=== PATIENT | male | born 1945 | race Caucasian/White ===

== ENCOUNTER 2017-03-13 05:06 | Inpatient (IN) | payer OTHER, MEDICARE ==
[2017-03-13] VITALS (14 sets, daily range): BP systolic 114–148; BP diastolic 69–111; PULSE 99–160; RESP 22–42; TEMP 97.7–98.3; O2SAT 90–100
[~2017-03-13] VITALS: Ht 182.9 cm; Wt 113.5 kg
[2017-03-13] MEDS ORDERED: ASPIRIN 300 MG SUPP RECTAL ONE (05:15)
[2017-03-13] MEDS ORDERED: SODIUM CHLORIDE 0.9% FLUSH 10 ML FLUSH IVF PRN (05:15)
--- NOTE | 2017-03-13 05:28 | PD ---
HPI Chief Complaint: Cardiac Complaint Time Seen by Provider: 05:15 Travel History International Travel<30 days: No Contact w/Intl Traveler<30days: No Traveled to known affect area: No History of Present Illness HPI 72-year-old male presents with shortness of breath that started an hour and a half prior to arrival. He denies any specific chest pain. He states he is visiting from [place]. The ambulance team arrived his heart rate was in the 180s. He was given 2 doses of adenosine without change. Then he was given 20 mg of Cardizem. This slowed his heart rate down temporarily but then it went back up. 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 He states this was a couple years ago. PFSH Past Medical History Atrial Fibrillation: Yes Cardiac Catheterization: Yes (2007) High Cholesterol: Yes COPD: Yes GERD: Yes Gout: Yes Hypertension: Yes Influenza Vaccination: No Past Surgical History Eye Surgery: Yes (CATARACTS ) Social History Alcohol Use: Yes (SOCIAL) Tobacco Use: No Substance Use: No Allergies-Medications (Allergen,Severity, Reaction): Coded Allergies: oxycodone (Verified Allergy, Unknown, Hallucinations, 03/13/17) clopidogrel (Verified Adverse Reaction, Intermediate, Tachycardia, 03/13/17 ) pt. states plavix makes his heart rate go fast. Reported Meds & Prescriptions Reported Meds & Active Scripts Active Reported Proair Hfa 8.5 GM Inh (Albuterol Sulfate) 90 Mcg/Act Aer 2 Puff INH Q4-6H PRN 108 mcg/actuation Indomethacin 50 Mg Cap 50 Mg PO TID Take with food, milk, or antacids to decrease stomach adverse effects. Potassium Chloride ER (Potassium Chloride) 10 Meq Cap 10 Meq PO MO,WE,FR Furosemide 20 Mg Tab 20 Mg PO MO,WE,FR Diltiazem CD 24 HR 120 Mg Caper 120 Mg PO BID Metoprolol Succinate ER 24 HR (Metoprolol Succinate) 25 Mg Tab 12.5 Mg PO HS Metoprolol Succinate ER 24 HR (Metoprolol Succinate) 25 Mg Tab 25 Mg PO DAILY Aspirin Low Dose (Aspirin) 81 Mg Chew 81 Mg CHEW DAILY Omeprazole 20 Mg Tab 20 Mg PO DAILY Allopurinol 300 Mg Tab 300 Mg PO DAILY Lovastatin 40 Mg Tab 40 Mg PO DAILY Lisinopril 20 Mg Tab 20 Mg PO DAILY Review of Systems Except as stated in HPI: all other systems reviewed are Neg Physical Exam Narrative GENERAL: Well-nourished, well-developed patient, ill-appearing. SKIN: Diaphoretic HEAD: Normocephalic and atraumatic. EYES: No injection or drainage. ENT: No nasal drainage noted. NECK: Supple, trachea midline. CARDIOVASCULAR: irregular rate and rhythm RESPIRATORY:expiratory wheezing bilaterally. No accessory muscle use. GASTROINTESTINAL: Abdomen soft, nondistended. EXTREMITIES: 2+ pitting edema bilateral legs, mid tibia. NEUROLOGICAL: Awake. moves all extremities and sensory grossly within normal limits. Normal speech. Data Data Last Documented VS Vital Signs Date Time Temp Pulse Resp B/P (MAP) Pulse Ox O2 Delivery O2 Flow Rate FiO2 03/13/17 06:08 132 160/103 03/13/17 05:45 38 BiPAP 35 03/13/17 05:23 97 03/13/17 05:10 97.7 Orders Orders Electrocardiogram (03/13/17 05:15) B-Type Natriuretic Peptide (03/13/17 05:15) Ckmb (Isoenzyme) Profile (03/13/17 05:15) Complete Blood Count With Diff (03/13/17 05:15) Comprehensive Metabolic Panel (03/13/17 05:15) Magnesium (Mg) (03/13/17 05:15) Prothrombin Time / Inr (Pt) (03/13/17 05:15) Act Partial Throm Time (Ptt) (03/13/17 05:15) Troponin I (03/13/17 05:15) Chest, Single Ap (03/13/17 05:15) Ecg Monitoring (03/13/17 05:15) Bilateral Bp Monitoring (03/13/17 05:15) Iv Access Insert/Monitor (03/13/17 05:15) Oximetry (03/13/17 05:15) Oxygen Administration (03/13/17 05:15) Sodium Chloride 0.9% Flush (Ns Flush) (03/13/17 05:15) Aspirin Supp (Aspirin Supp) (03/13/17 05:15) Resp Bipap / Cpap Non Invas Vt (03/13/17 ) Diltiazem Inj (Cardizem Inj) (03/13/17 05:30) Furosemide Inj (Lasix Inj) (03/13/17 06:00) Admit Order (Ed Use Only) (03/13/17 06:09) Labs Laboratory Tests Test 03/13/17 05:20 White Blood Count 11.4 TH/MM3 Red Blood Count 4.65 MIL/MM3 Hemoglobin 13.7 GM/DL Hematocrit 42.4 % Mean Corpuscular Volume 91.2 FL Mean Corpuscular Hemoglobin 29.6 PG Mean Corpuscular Hemoglobin Concent 32.4 % Red Cell Distribution Width 16.8 % Platelet Count 236 TH/MM3 Mean Platelet Volume 8.9 FL Neutrophils (%) (Auto) 74.8 % Lymphocytes (%) (Auto) 16.9 % Monocytes (%) (Auto) 5.8 % Eosinophils (%) (Auto) 1.7 % Basophils (%) (Auto) 0.8 % Neutrophils # (Auto) 8.6 TH/MM3 Lymphocytes # (Auto) 1.9 TH/MM3 Monocytes # (Auto) 0.7 TH/MM3 Eosinophils # (Auto) 0.2 TH/MM3 Basophils # (Auto) 0.1 TH/MM3 CBC Comment DIFF FINAL Differential Comment Prothrombin Time 10.5 SEC Prothromb Time International Ratio 1.0 RATIO Activated Partial Thromboplast Time 24.3 SEC Blood Urea Nitrogen 20 MG/DL Creatinine 0.86 MG/DL Random Glucose 177 MG/DL Total Protein 7.3 GM/DL Albumin 3.8 GM/DL Calcium Level 8.6 MG/DL Magnesium Level 1.9 MG/DL Alkaline Phosphatase 108 U/L Aspartate Amino Transf (AST/SGOT) 15 U/L Alanine Aminotransferase (ALT/SGPT) 23 U/L Total Bilirubin 0.4 MG/DL Sodium Level 141 MEQ/L Potassium Level 3.5 MEQ/L Chloride Level 106 MEQ/L Carbon Dioxide Level 26.9 MEQ/L Anion Gap 8 MEQ/L Estimat Glomerular Filtration Rate 87 ML/MIN Total Creatine Kinase 60 U/L Troponin I 0.23 NG/ML B-Type Natriuretic Peptide 752 PG/ML MDM Medical Decision Making Medical Screen Exam Complete: Yes Emergency Medical Condition: Yes Medical Record Reviewed: Yes (pmh confirmed) Interpretation(s) ekg is A. fib with heart rate in the 150s, right bundle branch block, wide QRS CBC & BMP Diagram 12/1/17 05:20 Total Protein 7.3, Albumin 3.8, Calcium Level 8.6, Magnesium Level 1.9, Alkaline Phosphatase 108, Aspartate Amino Transf (AST/SGOT) 15, Alanine Aminotransferase (ALT/SGPT) 23, Total Bilirubin 0.4 Last 24 hours Impressions Chest X-Ray 03/13/17 0515 Signed Impressions: Service Date/Time: Monday, March 13, 2017 05:22 - CONCLUSION: Bibasilar air space opacity in a pattern suggesting pulmonary edema. Cardiac silhouette is mildly enlarged. Clarence Bhakta MD troponin and bnp is elevated Differential Diagnosis MO, CHF, PE, A. fib with RVR, ventricular tachycardia Narrative Course Will check blood work, chest x-ray and place patient on BiPAP, dose with aspirin and placed on Cardizem drip and discuss with cardiology given concern of ekg and presentation On recheck patient has improved with BiPAP. He is talking in full sentences and declining Lasix. Very lengthy discussion with patient and he agrees to Lasix and understands its importance now. We'll titrate up Cardizem. He will need to be kept nothing by mouth and on bedrest and monitor closely in the CIC area Patient was wanting BiPAP off when hospitalist came to see patient, with it briefly off he got tachycardic and tachypneic Again. BiPAP was replaced and hospitalist request ICU admission, he will be admitted to the hospital, if bp stays stable will need nitro drip Critical Care Narrative Aggregate critical care time was 35 minutes. Time to perform other separately billable procedures was not included in the critical care time. My time did not include minutes spent treating any other patients simultaneously or on activities that did not directly contribute to the patient's treatment. The services I provided to this patient were to treat and/or prevent clinically significant deterioration that could result in: CHF, respiratory failure, shock I provided critical care services requiring my management, as noted below: Chart data review, documentation time, medication orders and management, vital sign assessments/reviewing monitor data, ordering and reviewing lab tests, ordering and interpreting/reviewing x-rays and diagnostic studies, care of the patient and discussion of the patient with the admitting physicians. Physician Communication Physician Communication dr bolaños informed concern for ekg and patients symptoms and states to give lasix when I asked for his assistance dr florez thinks patient needs to go to icu as patient got tachycardic with bipap off dr murphy agrees to admit Diagnosis Primary Impression: Pulmonary edema Qualified Codes: J81.0 - Acute pulmonary edema Additional Impressions: Atrial fibrillation with RVR Respiratory failure Qualified Codes: J96.00 - Acute respiratory failure, unspecified whether with hypoxia or hypercapnia Admitting Information Admitting Physician Requests: Admit Pinky Daniel MD Mar 13, 2017 05:28
[2017-03-13] MEDS ORDERED: ALLO300T2 PO (05:29)
[2017-03-13] MEDS ORDERED: FURO20TA PO (05:29)
[2017-03-13] MEDS ORDERED: DILT120C50 PO (05:29)
[2017-03-13] MEDS ORDERED: LISI-515 PO (05:29)
[2017-03-13] MEDS ORDERED: OMEP20TA93 PO (05:29)
[2017-03-13] MEDS ORDERED: ALBUAER3 INH (05:29)
[2017-03-13] MEDS ORDERED: ASPI81CH6 CHEW (05:29)
[2017-03-13] MEDS ORDERED: LOVA40TA PO (05:29)
[2017-03-13] MEDS ORDERED: INDO50CA PO (05:29)
[2017-03-13] MEDS ORDERED: METO1TAB42 PO ×2 (05:29)
[2017-03-13] MEDS ORDERED: POTA10CA PO (05:29)
[2017-03-13] MEDS ORDERED: DILTIAZEM INJ 125 MG in SODIUM CHLORIDE 0.9% INJ 100 ML IV PRN ×2 (05:30→06:30)
[2017-03-13 05:36] LABS: AUTOMATED NEUTROPHIL # 8.6 TH/MM3 (1.8-7.7); BASOPHIL # 0.1 TH/MM3 (0-0.2); BASOPHIL % 0.8 % (0.0-2.0); EOSINOPHIL # 0.2 TH/MM3 (0-0.4); EOSINOPHIL % 1.7 % (0.0-4.0); HEMATOCRIT 42.4 % (39.0-51.0); HEMO FLAGS DIFF FINAL; LYMPH % 16.9 % (9.0-44.0); LYMPHOCYTE # 1.9 TH/MM3 (1.0-4.8); MEAN CELL VOLUME 91.2 FL (80.0-100.0); MEAN CORPUSCULAR HEMOGLOBIN 29.6 PG (27.0-34.0); MEAN CORPUSCULAR HGB CONC 32.4 % (32.0-36.0); MONO % 5.8 % (0.0-8.0); NEUT % 74.8 % (16.0-70.0); PLATELET COUNT 236 TH/MM3 (150-450); RED BLOOD COUNT 4.65 MIL/MM3 (4.50-5.90); RED CELL DISTRIBUTION WIDTH 16.8 % (11.6-17.2); WHITE BLOOD COUNT 11.4 TH/MM3 (4.0-11.0)
[2017-03-13 05:41] LABS: APTT (PATIENT) 24.3 SEC (24.3-30.1); PROTHROMBIN TIME - PATIENT 10.5 SEC (9.8-11.6)
[2017-03-13 05:51] LABS: ALT (GPT) 23 U/L (12-78); ANION GAP 8 MEQ/L (5-15); AST (GOT) 15 U/L (15-37); BICARBONATE 26.9 MEQ/L (21.0-32.0); BLOOD UREA NITROGEN 20 MG/DL (7-18); CHLORIDE 106 MEQ/L (98-107); GLOMERULAR FILTRATION RATE 87 ML/MIN (>89); MAGNESIUM 1.9 MG/DL (1.5-2.5); POTASSIUM 3.5 MEQ/L (3.5-5.1); SODIUM (NA) 141 MEQ/L (136-145)
--- NOTE | 2017-03-13 05:51 | RADRPT ---
EXAM DATE/TIME: 03/13/2017 05:22 [facility] COMPARISON: No previous studies available for comparison. INDICATIONS : Shortness of breath. MEDICAL HISTORY : Chronic obstructive pulmonary disease. SURGICAL HISTORY : Abdominal stents. ENCOUNTER: Initial ACUITY: 1 day PAIN SCORE: 0/10 LOCATION: Bilateral chest FINDINGS: Portable AP views of the chest demonstrates cardiac silhouette size at the upper limits for normal. T here is airspace opacity in the lower lung zones bilaterally. No pneumothorax or pleural effusion is identified. Bones and soft tissues demonstrate no acute finding. CONCLUSION: Bibasilar air space opacity in a pattern suggesting pulmonary edema. Cardiac silhouette is mildly enl arged. Clarence Bhakta MD on March 13, 2017 at 5:49 Board Certified Radiologist. This report was verified electronically.
[2017-03-13] MEDS: FUROSEMIDE 40 MG/4 ML VIAL IV PUSH ONE ×2 (05:52→06:14)
[2017-03-13 05:55] LABS: ALKALINE PHOSPHATASE 108 U/L (45-117); TOTAL BILIRUBIN ADULT 0.4 MG/DL (0.2-1.0)
[2017-03-13 05:56] LABS: CREATINE KINASE 60 U/L (39-308)
[2017-03-13] MEDS ORDERED: SODIUM CHLORIDE 0.9% FLUSH 10 ML FLUSH IV FLUSH PRN ×2 (06:15→07:00)
[2017-03-13] MEDS ORDERED: NALOXONE HCL 0.4 MG/ML AMP IV PUSH PRN (06:15)
[2017-03-13] MEDS ORDERED: POTASSIUM CHLORIDE 20 MEQ CONTROLLED RELEASE TAB PO ONE (06:15)
[2017-03-13] MEDS ORDERED: DILTIAZEM HCL 25 MG/5 ML VIAL IV PUSH ONE (06:30)
--- NOTE | 2017-03-13 06:38 | HHI.PR ---
Addendum to Inpatient Note Addendum Reason: Additional Documentation Additional Information This admission was given to me from ER at around 6 AM. Came to see patient at the bedside. Patient is awake, alert. at the bedside. Patient and family reports that patient has been short of breath for the past 3 days or so. Patient is insistent that he gets short of breath only when his A. fib is acting up. He reports is not on anticoagulation at home because of history of bleeding. Reports history of GI ulcers. He reports he short of breath with feeling off palpitations. He takes medications to control his heart rate. He reports that his doctors in [place] wanted to give him DC cardioversion and they were not able to do so because he would not take blood thinners. When asked about history of cardiac ablation, patient is not aware of this procedure. During my conversation, patient really wanted to to wipe his nose and ask for the BiPAP mask to be removed. This was removed and within about 5-10 minutes, patient himself became quite short of breath and ask for the BiPAP to be replaced immediately. While this was being replaced in the next 5 minutes or so, it is quite clear that patient became acutely in distress. His heart rate was in the 180s. Rhythm shows A. fib. Discussed with the ER physician. Patient with quite acute respiratory distress/severe enough that he cannot tolerate even a short period of BiPAP removal weren't to be admitted under ultrasound sonographer service in ICU setting. Therefore will remove my name of the list and admission to be given to ultrasound sonographer. Pacheco Chamberlain MD Mar 13, 2017 06:38
[2017-03-13] MEDS ORDERED: ACETAMINOPHEN 325 MG TAB PO PRN (07:00)
[2017-03-13] MEDS ORDERED: METOPROLOL TARTRATE 5 MG/5 ML VIAL IV PUSH ONE (07:00)
[2017-03-13] MEDS ORDERED: CHLORHEXIDINE GLUCONATE 2 % 1 PACK (2 CLOTHS) TOP PRN (07:00)
[2017-03-13] MEDS ORDERED: MISCELLANEOUS NURSING INFORMATION XX SCH (07:00)
[2017-03-13] MEDS: CHLORHEXIDINE 0.12% (ORAL KIT) 15 ML CUP MT SCH ×2 (08:00→20:00)
[2017-03-13] MEDS ORDERED: PRAVASTATIN SOD 40 MG TAB PO SCH (09:00)
[2017-03-13] MEDS ORDERED: PANTOPRAZOLE SOD 20 MG DELAYED RELEASE TAB PO SCH (09:00)
[2017-03-13] MEDS: SODIUM CHLORIDE 0.9% FLUSH 10 ML FLUSH IV FLUSH SCH ×2 (09:00→20:21)
[2017-03-13] MEDS ORDERED: SODIUM CHLORIDE 0.9% FLUSH 10 ML FLUSH IV FLUSH SCH (09:00)
[2017-03-13] MEDS: ASPIRIN 81 MG CHEW TAB CHEW SCH (09:35)
[2017-03-13] MEDS: FUROSEMIDE 40 MG/4 ML VIAL IV PUSH SCH ×2 (09:36→18:44)
[2017-03-13] MEDS: METOPROLOL SUCCINATE 25 MG EXTENDED RELEASE TAB PO SCH (09:36)
[2017-03-13] MEDS: LISINOPRIL 20 MG TAB PO SCH (09:37)
[2017-03-13] MEDS: ALLOPURINOL 300 MG TAB PO SCH (09:40)
[2017-03-13] MEDS: DILTIAZEM-CD 120 MG CAP ER PO SCH ×2 (09:40→20:21)
[2017-03-13] MEDS ORDERED: ALPRAZolam 0.5 MG TAB PO ONE (10:15)
[2017-03-13] MEDS: INSULIN ASPART SUPPLEMENTAL SCALE SQ SCH ×3 (12:00→20:50)
[2017-03-13] MEDS: DILTIAZEM INJ 125 MG in SODIUM CHLORIDE 0.9% INJ 100 ML IV PRN (12:00)
--- NOTE | 2017-03-13 13:41 | HHI.HP ---
HPI Service Critical Care Medicine Primary Care Physician No Primary Care Physician Admission Diagnosis chf exacerbation, afib with rvr Diagnosis: Travel History International Travel<30 Days: No Contact w/Intl Traveler <30 Da: No Traveled to Known Affected Are: No History of Present Illness History of Present Illness HPI 72-year-old male with a medical history significant for atrial fibrillation, coronary artery disease, peripheral vascular disease who developed progressive shortness of breath about 1-1/2 hours prior to his arrival to the ER. He reportedly was visiting the area from [place]. EMS was called when he started having shortness of breath and was noted to have heart rate in the 180s. He was given 2 doses of Indocin and subsequently 20 mg Cardizem IV with which his heart rate temporarily came down however he was noted to be in A. fib with RVR on arrival in the ER. Patient was initiated on BiPAP for respiratory distress and hypoxia and was initiated on a Cardizem drip. Dr. Meza from cardiology was consulted by ER physician in view of pulmonary edema and slightly elevated troponin and A. fib with RVR. Patient was accepted for admission by critical care medicine service. I ordered Lopressor 5 mg IV stat as patient was on Cardizem 15 mg/h and still tachycardic with ventricular rate 120 to 130s. Following administration of Lopressor his heart rate came down to the 90s while on Cardizem drip. When I evaluated the patient in the ER he was on BiPAP with full facemask. He stated that since receiving the Lopressor he was feeling better however still very short of breath. He denied any chest pain. 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 He has previously had a cardiac catheterization way back in 2008 and was told he had an obstruction. He has also had a stress test in 2014 which was abnormal. Patient states that he cannot take blood thinners due to history of GI bleeding. He was advised to have a cardiac catheterization by his plush brusher previously. He denies any fevers or chills. Denies any chest pain nausea or vomiting. Denies any melena or rectal bleeding currently. History PFSH Past Medical History Atrial Fibrillation: Yes Cardiac Catheterization: Yes (2007) High Cholesterol: Yes COPD: Yes GERD: Yes Gout: Yes Hypertension: Yes Influenza Vaccination: No Past Surgical History Eye Surgery: Yes (CATARACTS ) Social History Alcohol Use: Yes (SOCIAL) Tobacco Use: No Substance Use: No Allergies-Medications Allergies-Medications (Allergen,Severity, Reaction): Coded Allergies: oxycodone (Verified Allergy, Unknown, Hallucinations, 03/13/17) Reported Meds & Prescriptions Reported Meds & Active Scripts Active Reported Proair Hfa 8.5 GM Inh (Albuterol Sulfate) 90 Mcg/Act Aer 2 Puff INH Q4-6H PRN 108 mcg/actuation Indomethacin 50 Mg Cap 50 Mg PO TID Take with food, milk, or antacids to decrease stomach adverse effects. Potassium Chloride ER (Potassium Chloride) 10 Meq Cap 10 Meq PO MO,WE,FR Furosemide 20 Mg Tab 20 Mg PO MO,WE,FR Diltiazem CD 24 HR 120 Mg Caper 120 Mg PO BID Metoprolol Succinate ER 24 HR (Metoprolol Succinate) 25 Mg Tab 12.5 Mg PO HS Metoprolol Succinate ER 24 HR (Metoprolol Succinate) 25 Mg Tab 25 Mg PO DAILY Aspirin Low Dose (Aspirin) 81 Mg Chew 81 Mg CHEW DAILY Omeprazole 20 Mg Tab 20 Mg PO DAILY Allopurinol 300 Mg Tab 300 Mg PO DAILY Lovastatin 40 Mg Tab 40 Mg PO DAILY Lisinopril 20 Mg Tab 20 Mg PO DAILY ROS Review of Systems Except as stated in HPI: all other systems reviewed are Neg Physical Exam Vital Signs Vital Signs Date Time Temp Pulse Resp B/P (MAP) Pulse Ox O2 Delivery O2 Flow Rate FiO2 03/13/17 12:00 98.3 108 24 115/74 (88) 95 03/13/17 12:00 108 03/13/17 10:23 98.0 99 26 141/82 (101) 96 03/13/17 10:00 98.3 108 24 115/74 (88) 95 03/13/17 09:05 100 50 03/13/17 08:50 03/13/17 07:30 99 22 131/69 (89) 98 BiPAP 35 03/13/17 06:40 130 167/128 03/13/17 06:08 132 160/103 03/13/17 05:52 130 148/111 03/13/17 05:45 127 38 148/111 (123) BiPAP 35 03/13/17 05:35 133 42 03/13/17 05:23 97 BiPAP 35 03/13/17 05:15 97 45 03/13/17 05:10 90 Room Air 03/13/17 05:10 97.7 160 42 121/98 (106) 90 Physical Exam Narrative GENERAL: Well-nourished, well-developed patient, ill-appearing. SKIN: Diaphoretic HEAD: Normocephalic and atraumatic. EYES: No injection or drainage. ENT: No nasal drainage noted. NECK: Supple, trachea midline. CARDIOVASCULAR: irregular rate and rhythm RESPIRATORY: On BiPAP with full facemask, good air entry bilaterally, scattered rhonchi and bibasilar crackles, no wheezing. GASTROINTESTINAL: Abdomen soft, nondistended. EXTREMITIES: 2+ pitting edema bilateral legs, mid tibia. NEUROLOGICAL: Awake. moves all extremities and sensory grossly within normal limits. Normal speech. Laboratory Laboratory Tests Test 03/13/17 05:20 03/13/17 08:40 White Blood Count 11.4 Red Blood Count 4.65 Hemoglobin 13.7 Hematocrit 42.4 Mean Corpuscular Volume 91.2 Mean Corpuscular Hemoglobin 29.6 Mean Corpuscular Hemoglobin Concent 32.4 Red Cell Distribution Width 16.8 Platelet Count 236 Mean Platelet Volume 8.9 Neutrophils (%) (Auto) 74.8 Lymphocytes (%) (Auto) 16.9 Monocytes (%) (Auto) 5.8 Eosinophils (%) (Auto) 1.7 Basophils (%) (Auto) 0.8 Neutrophils # (Auto) 8.6 Lymphocytes # (Auto) 1.9 Monocytes # (Auto) 0.7 Eosinophils # (Auto) 0.2 Basophils # (Auto) 0.1 CBC Comment DIFF FINAL Differential Comment Prothrombin Time 10.5 Prothromb Time International Ratio 1.0 Activated Partial Thromboplast Time 24.3 Blood Urea Nitrogen 20 Creatinine 0.86 Random Glucose 177 Total Protein 7.3 Albumin 3.8 Calcium Level 8.6 Magnesium Level 1.9 Alkaline Phosphatase 108 Aspartate Amino Transf (AST/SGOT) 15 Alanine Aminotransferase (ALT/SGPT) 23 Total Bilirubin 0.4 Sodium Level 141 Potassium Level 3.5 Chloride Level 106 Carbon Dioxide Level 26.9 Anion Gap 8 Estimat Glomerular Filtration Rate 87 Total Creatine Kinase 60 Troponin I 0.23 B-Type Natriuretic Peptide 752 Nasal Screen MRSA (PCR) MRSA NOT DETECTED Result Diagram: 03/13/1751903/13/1720 Imaging Last Impressions Chest X-Ray 03/13/17 0515 Signed Impressions: Service Date/Time: Monday, March 13, 2017 05:22 - CONCLUSION: Bibasilar air space opacity in a pattern suggesting pulmonary edema. Cardiac silhouette is mildly enlarged. MD Fareed Platt VTE Risk Assessment Fareed VTE Risk Assessment: Mod/High Risk (score >= 2) Caprini Risk Assessment Model Point Value = 1 Point Value = 2 Point Value = 3 Point Value = 5 Age 41-60 Minor surgery BMI > 25 kg/m2 Swollen legs Varicose veins or History of unexplained or recurrent spontaneous Oral contraceptives or hormone replacement Sepsis (< 1 month) Serious lung disease, including pneumonia (< 1 month) Abnormal pulmonary function Acute myocardial infarction Congestive heart failure (< 1 month) History of inflammatory bowel disease Medical patient at bed rest Age 61-74 Arthroscopic surgery Major open surgery (> 45 min) Laparoscopic surgery (> 45 min) Malignancy Confined to bed (> 72 hours) Immobilizing plaster cast Central venous access Age >= 75 History of VTE Family history of VTE Factor V Leiden Prothrombin [id number] Lupus anticoagulant Anticardiolipin antibodies Elevated serum homocysteine Heparin-induced thrombocytopenia Other congenital or acquired thrombophilia Stroke (< 1 month) Elective arthroplasty Hip, pelvis, or leg fracture Acute spinal cord injury (< 1 month) Prophylaxis Regimen Total Risk Factor Score Risk Level Prophylaxis Regimen 0-1 Low Early ambulation 2 Moderate Order ONE of the following: *Sequential Compression Device (SCD) *Heparin 5000 units SQ BID 3-4 Higher Order ONE of the following medications: *Heparin 5000 units SQ TID *Enoxaparin/Lovenox 40 mg SQ daily (WT < 150 kg, CrCl > 30 mL/min) *Enoxaparin/Lovenox 30 mg SQ daily (WT < 150 kg, CrCl > 10-29 mL/min) *Enoxaparin/Lovenox 30 mg SQ BID (WT < 150 kg, CrCl > 30 mL/min) AND/OR *Sequential Compression Device (SCD) 5 or more Highest Order ONE of the following medications: *Heparin 5000 units SQ TID (Preferred with Epidurals) *Enoxaparin/Lovenox 40 mg SQ daily (WT < 150 kg, CrCl > 30 mL/min) *Enoxaparin/Lovenox 30 mg SQ daily (WT < 150 kg, CrCl > 10-29 mL/min) *Enoxaparin/Lovenox 30 mg SQ BID (WT < 150 kg, CrCl > 30 mL/min) AND *Sequential Compression Device (SCD) Assessment and Plan Assessment and Plan 72-year-old male with: Acute respiratory failure requiring BiPAP A. fib with RVR Elevated troponin CAD COPD Hyperlipidemia Gout Plan: Neuro: Follow neuro status. Pain medications as needed. Cardiovascular: Diuresis with Lasix. Cardizem gtt. for rate control. Continue by mouth Cardizem and metoprolol home dose. Given Lopressor 5 mg IV earlier in ER. Cycle cardiac enzymes, continue aspirin. Cardiology consult requested and discussed with Dr. Meza at bedside with patient. Patient wishes to pursue further cardiac workup back in [place] after he is stabilized enough for discharge. Pulmonary: Continue BiPAP. If respiratory status worsens despite BiPAP may require endotracheal intubation. Being diuresed with Lasix. Hold off on albuterol in view of A. fib with RVR. GI/liver: Nothing by mouth till improvement in respiratory status Renal/: Diurese with Lasix, strict intake output, monitor and replete elect lites, follow BUN/creatinine. Heme: Follow CBC Endocrine: SSI for glycemic control if needed. Prophylaxis: Continue home dose of omeprazole, SCDs/Lovenox. Condition critical with patient in A. fib with RVR, decompensated CHF, pulmonary edema, positive troponin. Further recommendations per Dr. Meza. Time spent on critical care excluding procedures 60 minutes Artemio Skinner MD Mar 13, 2017 13:40
--- NOTE | 2017-03-13 14:04 | PD.CONS ---
HPI Consult Requested By Primary Care Physician No Primary Care Physician History of Present Illness 72-year-old male with a medical history significant for atrial fibrillation, coronary artery disease (last cath 2008, ?abnormal stress test being tx medically, peripheral vascular disease, GI bleeding after blood thinners who presented to the ER via EMS for evaluation of progressive shortness of breath about 1-1/2 hours prior to his arrival. He receives his cardiovascular care in [place] ([facility]). Upon EMS arrival he was found in shortness of breath with a heart rate in the 180s. He was given 2 doses Adenosine and subsequently 20 mg Cardizem IV with which his heart rate temporarily came down however he was noted to be in A. fib with RVR. Patient was initiated on BiPAP for respiratory distress hypoxia and Cardizem drip. He denied any chest pain. He denies any fevers or chills. Denies any chest pain nausea or vomiting. Denies any melena or rectal bleeding currently. Cardiology consulted for HF management. Review of Systems Consitutional: COMPLAINS OF: Fatigue, DENIES: Fever, Chills, Weight gain, Weight loss Eyes: DENIES: Amaurosis Fugax, Change in vision HEENT: DENIES: Lightheadedness, Change in hearing Respiratory: COMPLAINS OF: See HPI, Shortness of breath, DENIES: Cough, Snoring , Wheezing, Sputum production Cardiovascular: DENIES: See HPI, Chest pain, Palpitations, Syncope, Tachycardia Gastrointestinal: DENIES: Nausea, Vomiting, Change in bowel habits, Reflux, Bloody stools, Melena Genitourinary: DENIES: Urinary incontinence, Difficulty voiding Integumentary: DENIES: Rash Neurologic: DENIES: Tingling or numbness, Memory problems, Poor Balance, Stroke symptoms Musculoskeletal: DENIES: Joint pain, Muscle pain, Limited range of motion, Back pain Psychiatric: DENIES: Anxiety, Depression, Sleep disturbances Hematologic: DENIES: Bruising tendencies, Bleeding tendencies Endocrine: COMPLAINS OF: Weight gain, DENIES: Weight loss, Thyroid disease Past Family Social History Allergies: Coded Allergies: oxycodone (Verified Allergy, Unknown, Hallucinations, 03/13/17) clopidogrel (Verified Adverse Reaction, Intermediate, Tachycardia, 03/13/17 ) pt. states plavix makes his heart rate go fast. Past Medical History Atrial Fibrillation: High Cholesterol COPD GERD Gout Hypertension Past Surgical History eye surgery Reported Medications Reported Meds & Active Scripts Active Reported Proair Hfa 8.5 GM Inh (Albuterol Sulfate) 90 Mcg/Act Aer 2 Puff INH Q4-6H PRN 108 mcg/actuation Indomethacin 50 Mg Cap 50 Mg PO TID Take with food, milk, or antacids to decrease stomach adverse effects. Potassium Chloride ER (Potassium Chloride) 10 Meq Cap 10 Meq PO MO,WE,FR Furosemide 20 Mg Tab 20 Mg PO MO,WE,FR Diltiazem CD 24 HR 120 Mg Caper 120 Mg PO BID Metoprolol Succinate ER 24 HR (Metoprolol Succinate) 25 Mg Tab 12.5 Mg PO HS Metoprolol Succinate ER 24 HR (Metoprolol Succinate) 25 Mg Tab 25 Mg PO DAILY Aspirin Low Dose (Aspirin) 81 Mg Chew 81 Mg CHEW DAILY Omeprazole 20 Mg Tab 20 Mg PO DAILY Allopurinol 300 Mg Tab 300 Mg PO DAILY Lovastatin 40 Mg Tab 40 Mg PO DAILY Lisinopril 20 Mg Tab 20 Mg PO DAILY Active Ordered Medications Current Medications Medications (Trade) Dose Ordered Sig/Preston Route Start Time Stop Time Status Last Admin (Narcan Inj) 0.4 mg UNSCH PRN IV PUSH 03/13/17 06:15 (Lasix Inj) 40 mg BID@18 IV PUSH 03/13/17 09:00 03/13/17 09:36 (NS Flush) 2 ml UNSCH PRN IV FLUSH 03/13/17 07:00 (NS Flush) 2 ml BID IV FLUSH 03/13/17 09:00 03/13/17 09:00 (Tylenol) 650 mg Q6H PRN PO 03/13/17 07:00 (Peridex 0.12% Liq) 15 ml BID@08,20 MT 03/13/17 08:00 Miscellaneous Information 1 Q361D XX 03/13/17 07:00 (Chlorhexidine 2% Cloth) 3 pack Taper DAILY@04 TOP 03/14/17 04:00 03/10/18 03:59 (Chlorhexidine 2% Cloth) 3 pack UNSCH PRN TOP 03/13/17 07:00 (NovoLOG SUPPLEMENTAL SCALE) 1 ACHS SLIDING SCALE SQ 03/13/17 08:00 (Zyloprim) 300 mg DAILY PO 03/13/17 09:00 03/13/17 09:40 (Aspirin Chew) 81 mg DAILY CHEW 03/13/17 09:00 03/13/17 09:35 (Cardizem Cd) 120 mg BID PO 03/13/17 09:00 03/13/17 09:40 (Prinivil) 20 mg DAILY PO 03/13/17 09:00 03/13/17 09:37 (Pravachol) 40 mg DAILY PO 03/13/17 09:00 (Toprol Xl) 12.5 mg HS PO 03/13/17 21:00 (Toprol Xl) 25 mg DAILY PO 03/13/17 09:00 03/13/17 09:36 (Protonix) 20 mg DAILY PO 03/13/17 09:00 Diltiazem HCl 125 mg/Sodium Chloride 125 ml @ 5 mls/hr TITRATE PRN IV 03/13/17 13:30 Family History noncontributory Social History Alcohol Use: Yes (SOCIAL) Tobacco Use: No Substance Use: No Physical Exam Vital Signs Vital Signs Date Time Temp Pulse Resp B/P (MAP) Pulse Ox O2 Delivery O2 Flow Rate FiO2 03/13/17 12:00 98.3 108 24 115/74 (88) 95 03/13/17 12:00 108 03/13/17 10:23 98.0 99 26 141/82 (101) 96 03/13/17 10:00 98.3 108 24 115/74 (88) 95 03/13/17 09:05 100 50 03/13/17 08:50 03/13/17 07:30 99 22 131/69 (89) 98 BiPAP 35 03/13/17 06:40 130 167/128 03/13/17 06:08 132 160/103 03/13/17 05:52 130 148/111 03/13/17 05:45 127 38 148/111 (123) BiPAP 35 03/13/17 05:35 133 42 03/13/17 05:23 97 BiPAP 35 03/13/17 05:15 97 45 03/13/17 05:10 90 Room Air 03/13/17 05:10 97.7 160 42 121/98 (106) 90 Physical Exam GENERAL: Well-nourished, well-developed patient, on BiPAP SKIN: Warm and dry. HEAD: Normocephalic. EYES: No scleral icterus. No injection or drainage. NECK: Supple, trachea midline. No JVD or lymphadenopathy. CARDIOVASCULAR: Regular rate and rhythm without murmurs, gallops, or rubs. RESPIRATORY: Breath sounds equal bilaterally. No accessory muscle use. GASTROINTESTINAL: Abdomen soft, non-tender, nondistended. EXTREMITIES: No cyanosis, or edema. NEUROLOGICAL: Awake, alert, and oriented x 3. Non-focal. Laboratory Laboratory Tests Test 03/13/17 05:20 03/13/17 08:40 03/13/17 13:10 White Blood Count 11.4 Red Blood Count 4.65 Hemoglobin 13.7 Hematocrit 42.4 Mean Corpuscular Volume 91.2 Mean Corpuscular Hemoglobin 29.6 Mean Corpuscular Hemoglobin Concent 32.4 Red Cell Distribution Width 16.8 Platelet Count 236 Mean Platelet Volume 8.9 Neutrophils (%) (Auto) 74.8 Lymphocytes (%) (Auto) 16.9 Monocytes (%) (Auto) 5.8 Eosinophils (%) (Auto) 1.7 Basophils (%) (Auto) 0.8 Neutrophils # (Auto) 8.6 Lymphocytes # (Auto) 1.9 Monocytes # (Auto) 0.7 Eosinophils # (Auto) 0.2 Basophils # (Auto) 0.1 CBC Comment DIFF FINAL Differential Comment Prothrombin Time 10.5 Prothromb Time International Ratio 1.0 Activated Partial Thromboplast Time 24.3 Blood Urea Nitrogen 20 Creatinine 0.86 Random Glucose 177 Total Protein 7.3 Albumin 3.8 Calcium Level 8.6 Magnesium Level 1.9 Alkaline Phosphatase 108 Aspartate Amino Transf (AST/SGOT) 15 Alanine Aminotransferase (ALT/SGPT) 23 Total Bilirubin 0.4 Sodium Level 141 Potassium Level 3.5 Chloride Level 106 Carbon Dioxide Level 26.9 Anion Gap 8 Estimat Glomerular Filtration Rate 87 Total Creatine Kinase 60 Troponin I 0.23 B-Type Natriuretic Peptide 752 Nasal Screen MRSA (PCR) MRSA NOT DETECTED Result Diagram: 03/13/1751903/13/17519 Imaging Last Impressions Chest X-Ray 03/13/17514 Signed Impressions: Service Date/Time: Monday, March 13, 2017 05:22 - CONCLUSION: Bibasilar air space opacity in a pattern suggesting pulmonary edema. Cardiac silhouette is mildly enlarged. Clarence Bhakta MD Assessment and Plan Problem List: (1) Pulmonary edema ICD Codes: J81.1 - Chronic pulmonary edema Status: Acute Plan: 72 y/o M admitted with what appears to be acute on chronic heart failure and Afib with RVR. He reports being complaint with medications and cardiology follow ups. No cardiovascular records in [facility] chart however he does gives a clear history of CAD with several blockages bu no stents. Troponin elevation DDx demand ischemia vs ACS/NSTEMI worsening of CAD. After a throughout discussion with the patient and regarding cardiovascular care/ischemic work up, risk benefits of LHC/PCI he DECLINES to have any cardiovascular work up , he prefers to wait to get to [facility]. Also he refuses to be put on Plavix. Recommendations: Medical manage Afib and NSTEMI 1. Strict I&O 2. Low salt diet 3. Lasix 40mg IV BID, Nitro gtt 4. Daily weights 5. Cont ASA, statin and ACEi 6. Get 2Dechocardiogram 7. Cont rate control with Cardizem drip wean as tolerated to maintain HR less than 110 8. Start Cardizem 30mg PO QID, Hold home dose of Beta Blockers 8. Telemetry monitoring 9. BiPAP 10. Cont cycling Cardiac Markers Q6H x3. 11. Heparin drip Case discuss with Dr. Skinner, Patient and (2) Respiratory failure ICD Codes: J96.90 - Respiratory failure, unspecified, unspecified whether with hypoxia or hypercapnia Status: Acute (3) Atrial fibrillation with RVR ICD Codes: I48.91 - Unspecified atrial fibrillation Status: Acute Problem Qualifiers (1) Pulmonary edema: Qualified Codes: J81.0 - Acute pulmonary edema (2) Respiratory failure: Qualified Codes: J96.00 - Acute respiratory failure, unspecified whether with hypoxia or hypercapnia Deyvi Osullivan MD Mar 13, 2017 14:04
--- NOTE | 2017-03-13 16:47 | EKG ---
Date Performed: 03/13/2017 Time Performed: 05:33:29 PTAGE: 72 years EKG: ATRIAL FIBRILLATION WITH RAPID VENTRICULAR RESPONSE RIGHT BUNDLE BRANCH BLOCK INFERIOR MYOC ARDIAL INFARCTION POSSIBLE ACUTE MN NO PREVIOUS TRACING DOCTOR: Myra Luther Interpretating Date/Time 03/13/2017 16:51:44
--- NOTE | 2017-03-13 16:48 | EKG ---
Date Performed: 03/13/2017 Time Performed: 11:13:41 PTAGE: 72 years EKG: ATRIAL FIBRILLATION WITH ABERRANT CONDUCTION OR VENTRICULAR PREMATURE COMPLEXES INTRAVENTRI CULAR CONDUCTION DELAY ANTERIOR MYOCARDIAL INFARCTION , OF INDETERMINATE AGE INFERIOR MYOCARDIAL INFA RCTION , OF INDETERMINATE AGE ABNORMAL ECG Compared to PREVIOUS TRACING , the patient is now rate-controlled. ST segments do not suggest an acut e injury pattern. PREVIOUS TRACIN03/13/2017 05.33 DOCTOR: Myra Luther Interpretating Date/Time 03/13/2017 16:47:17
[2017-03-13] MEDS ORDERED: HEPARIN SODIUM - IV 10,000 UNITS/10 ML VIAL IV PUSH ONE (17:00)
[2017-03-13 17:45] LABS: APTT (PATIENT) 26.6 SEC (24.3-30.1); INTERNATIONAL NORMALIZED RATIO 1.1 RATIO; PROTHROMBIN TIME - PATIENT 10.9 SEC (9.8-11.6)
[2017-03-13] MEDS ORDERED: METOPROLOL SUCCINATE 25 MG EXTENDED RELEASE TAB PO SCH (21:00)
[2017-03-13] MEDS ORDERED: HEPARIN SODIUM - IV 10,000 UNITS/10 ML VIAL IV PUSH PRN ×2 (23:00)
[2017-03-14] VITALS (14 sets, daily range): BP systolic 92–139; BP diastolic 52–85; PULSE 74–137; RESP 14–33; TEMP 97.8–99; O2SAT 87–97
[2017-03-14] MEDS: DILTIAZEM INJ 125 MG in SODIUM CHLORIDE 0.9% INJ 100 ML IV PRN ×3 (00:20→15:51)
[2017-03-14 00:45] LABS: APTT (PATIENT) 35.7 SEC (24.3-30.1)
[2017-03-14 03:48] LABS: BASOPHIL # 0.1 TH/MM3 (0-0.2); BASOPHIL % 0.5 % (0.0-2.0); EOSINOPHIL # 0.1 TH/MM3 (0-0.4); EOSINOPHIL % 0.6 % (0.0-4.0); HEMATOCRIT 39.9 % (39.0-51.0); HEMO FLAGS DIFF FINAL; LYMPH % 8.2 % (9.0-44.0); LYMPHOCYTE # 0.9 TH/MM3 (1.0-4.8); MEAN CELL VOLUME 90.4 FL (80.0-100.0); MEAN CORPUSCULAR HEMOGLOBIN 30.2 PG (27.0-34.0); MEAN CORPUSCULAR HGB CONC 33.4 % (32.0-36.0); MONO % 7.3 % (0.0-8.0); NEUT % 83.4 % (16.0-70.0); PLATELET COUNT 196 TH/MM3 (150-450); RED BLOOD COUNT 4.42 MIL/MM3 (4.50-5.90); RED CELL DISTRIBUTION WIDTH 16.7 % (11.6-17.2); WHITE BLOOD COUNT 10.8 TH/MM3 (4.0-11.0)
[2017-03-14 04:21] LABS: ALKALINE PHOSPHATASE 103 U/L (45-117); ALT (GPT) 20 U/L (12-78); ANION GAP 8 MEQ/L (5-15); AST (GOT) 46 U/L (15-37); BICARBONATE 28.2 MEQ/L (21.0-32.0); BLOOD UREA NITROGEN 18 MG/DL (7-18); CHLORIDE 103 MEQ/L (98-107); GLOMERULAR FILTRATION RATE 123 ML/MIN (>89); POTASSIUM 3.3 MEQ/L (3.5-5.1); SODIUM (NA) 139 MEQ/L (136-145); TOTAL BILIRUBIN ADULT 0.6 MG/DL (0.2-1.0)
--- NOTE | 2017-03-14 06:35 | RADRPT ---
EXAM DATE/TIME: 03/14/2017 04:04 [place] COMPARISON: CHEST SINGLE AP, March 13, 2017, 5:22. INDICATIONS : Shortness of breath, possible pulmonary disease. MEDICAL HISTORY : Chronic obstructive pulmonary disease. SURGICAL HISTORY : None. ENCOUNTER: Subsequent ACUITY: 2 days PAIN SCORE: 0/10 LOCATION: Bilateral chest FINDINGS: Portable AP view of the chest demonstrates cardiac silhouette size at the upper limits for normal. Th ere is stable mild bibasilar air space opacity. No pneumothorax or definite pleural effusion is seen. The bones and soft tissues demonstrate no acute finding. CONCLUSION: Stable chest x-ray with mild bibasilar opacity. Clarence Bhakta MD on March 14, 2017 at 6:33 Board Certified Radiologist. This report was verified electronically.
[2017-03-14] MEDS: INSULIN ASPART SUPPLEMENTAL SCALE SQ SCH ×4 (08:00→20:31)
[2017-03-14] MEDS: CHLORHEXIDINE 0.12% (ORAL KIT) 15 ML CUP MT SCH ×2 (08:00→20:00)
[2017-03-14] MEDS: METOPROLOL SUCCINATE 25 MG EXTENDED RELEASE TAB PO SCH (08:13)
[2017-03-14] MEDS: DILTIAZEM-CD 120 MG CAP ER PO SCH (08:13)
[2017-03-14] MEDS: LISINOPRIL 20 MG TAB PO SCH (08:13)
[2017-03-14] MEDS: ALLOPURINOL 300 MG TAB PO SCH (08:13)
[2017-03-14] MEDS: ASPIRIN 81 MG CHEW TAB CHEW SCH (08:14)
[2017-03-14] MEDS: SODIUM CHLORIDE 0.9% FLUSH 10 ML FLUSH IV FLUSH SCH ×2 (08:14→20:32)
[2017-03-14] MEDS: FUROSEMIDE 40 MG/4 ML VIAL IV PUSH SCH ×2 (08:14→17:32)
[2017-03-14] MEDS ORDERED: LOVASTATIN 40 MG PO SCH ×2 (09:00)
[2017-03-14] MEDS ORDERED: OMEPRAZOLE 20 MG PO SCH ×2 (09:00)
[2017-03-14 10:30] LABS: APTT (PATIENT) 35.3 SEC (24.3-30.1)
--- NOTE | 2017-03-14 10:45 | HHI.CCPN ---
Subjective Remarks/Hospital Course 03/13: 72-year-old male with a medical history significant for atrial fibrillation, coronary artery disease, peripheral vascular disease who developed progressive shortness of breath about 1-1/2 hours prior to his arrival to the ER. He reportedly was visiting the area from [place]. EMS was called when he started having shortness of breath and was noted to have heart rate in the 180s. He was given 2 doses of Indocin and subsequently 20 mg Cardizem IV with which his heart rate temporarily came down however he was noted to be in A. fib with RVR on arrival in the ER. Patient was initiated on BiPAP for respiratory distress and hypoxia and was initiated on a Cardizem drip. Dr. Meza from cardiology was consulted by ER physician in view of pulmonary edema and slightly elevated troponin and A. fib with RVR. Patient was accepted for admission by critical care medicine service. I ordered Lopressor 5 mg IV stat as patient was on Cardizem 15 mg/h and still tachycardic with ventricular rate 120 to 130s. Following administration of Lopressor his heart rate came down to the 90s while on Cardizem drip. When I evaluated the patient in the ER he was on BiPAP with full facemask. He stated that since receiving the Lopressor he was feeling better however still very short of breath. He denied any chest pain. 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 He has previously had a cardiac catheterization way back in 2008 and was told he had an obstruction. He has also had a stress test in 2014 which was abnormal. Patient states that he cannot take blood thinners due to history of GI bleeding. He was advised to have a cardiac catheterization by his dye reel operator previously. He denies any fevers or chills. Denies any chest pain nausea or vomiting. Denies any melena or rectal bleeding currently. 03/14: Resting in bed comfortably. On nasal cannula. Remains on Cardizem drip for A. fib with RVR. Troponin trending down. Objective Vital Signs Date Time Temp Pulse Resp B/P (MAP) Pulse Ox O2 Delivery O2 Flow Rate FiO2 03/14/17 10:00 95 Nasal Cannula 4.00 03/14/17 08:00 90 03/14/17 08:00 97.8 33 128/75 (92) 03/14/17 00:39 45 Intake and Output 03/14/17 03/14/17 03/15/17 08:00 16:00 00:00 Output Total 1200 ml Balance -1200 ml Result Diagram: 03/14/17 0330 03/14/17 0330 Imaging Last Impressions Chest X-Ray 03/13/17 0515 Signed Impressions: Service Date/Time: Monday, March 13, 2017 05:22 - CONCLUSION: Bibasilar air space opacity in a pattern suggesting pulmonary edema. Cardiac silhouette is mildly enlarged. Clarence Bhakta MD Objective Remarks Narrative GENERAL: Well-nourished, well-developed patient, ill-appearing. SKIN: Warm and dry HEAD: Normocephalic and atraumatic. EYES: No injection or drainage. ENT: No nasal drainage noted. NECK: Supple, trachea midline. CARDIOVASCULAR: irregular rate and rhythm RESPIRATORY: On nasal cannula, good air entry bilaterally, scattered rhonchi and bibasilar crackles, no wheezing. GASTROINTESTINAL: Abdomen soft, nondistended. EXTREMITIES: 2+ pitting edema bilateral legs, mid tibia. NEUROLOGICAL: Awake. moves all extremities and sensory grossly within normal limits. Normal speech. A/P Assessment and Plan 72-year-old male with: Acute respiratory failure A. fib with RVR Non-ST elevation MS CHF CAD COPD Hyperlipidemia Gout Plan: Neuro: Follow neuro status. Pain medications as needed. Cardiovascular: Diuresis with Lasix. Cardizem gtt. for rate control. Continue aspirin. Patient refuses Plavix. Agreed to heparin drip which was started on 03/13. Increase Cardizem CD and Lopressor by mouth to attempt to titrate off Cardizem drip Cardiology following Dr. Meza who has discussed cardiac catheterization and need for Plavix with patient who deferred this at this time . Patient wishes to pursue further cardiac workup back in [place] after he is stabilized enough for discharge. Pulmonary: Continue BiPAP. If respiratory status worsens despite BiPAP may require endotracheal intubation. Being diuresed with Lasix. Hold off on albuterol in view of A. fib with RVR. GI/liver: Nothing by mouth till improvement in respiratory status Renal/: Diurese with Lasix, strict intake output, monitor and replete elect lites, follow BUN/creatinine. Heme: Follow CBC Endocrine: SSI for glycemic control if needed. Prophylaxis: Continue home dose of omeprazole, SCDs/Lovenox. Further recommendations per Cardiology/ Dr. Meza. Artemio Skinner MD Mar 14, 2017 10:45
[2017-03-14] MEDS ORDERED: NITROGLYCERIN 0.4 MG SL 25 TABS/BTL SL PRN (11:00)
--- NOTE | 2017-03-14 11:40 | PD.CARD.PN ---
Subjective Subjective Remarks no cv complaints afib with rvr on heparin drip Objective Medications Current Medications Medications (Trade) Dose Ordered Sig/Preston Route Start Time Stop Time Status Last Admin (Narcan Inj) 0.4 mg UNSCH PRN IV PUSH 03/13/17 06:15 (Lasix Inj) 40 mg BID@18 IV PUSH 03/13/17 09:00 03/14/17 08:14 (NS Flush) 2 ml UNSCH PRN IV FLUSH 03/13/17 07:00 (NS Flush) 2 ml BID IV FLUSH 03/13/17 09:00 03/14/17 08:14 (Tylenol) 650 mg Q6H PRN PO 03/13/17 07:00 (Peridex 0.12% Liq) 15 ml BID@08,20 MT 03/13/17 08:00 Miscellaneous Information 1 Q361D XX 03/13/17 07:00 (Chlorhexidine 2% Cloth) 3 pack Taper DAILY@04 TOP 03/14/17 04:00 03/10/18 03:59 (Chlorhexidine 2% Cloth) 3 pack UNSCH PRN TOP 03/13/17 07:00 (NovoLOG SUPPLEMENTAL SCALE) 1 ACHS SLIDING SCALE SQ 03/13/17 08:00 (Zyloprim) 300 mg DAILY PO 03/13/17 09:00 03/14/17 08:13 (Aspirin Chew) 81 mg DAILY CHEW 03/13/17 09:00 03/14/17 08:14 (Prinivil) 20 mg DAILY PO 03/13/17 09:00 03/14/17 08:13 Diltiazem HCl 125 mg/Sodium Chloride 125 ml @ 5 mls/hr TITRATE PRN IV 03/13/17 13:30 03/14/17 07:23 Patient Own Medication PT OWN MED:LOVASTATIN 40MG DAILY PO 03/14/17 09:00 Future Hold Patient Own Medication PT OWN MED: OMEPRAZ... DAILY PO 03/14/17 09:00 Future Hold (Heparin Inj) 5,000 units UNSCH PRN IV PUSH 03/13/17 23:00 (Heparin Inj) 2,500 units UNSCH PRN IV PUSH 03/13/17 23:00 Heparin Sodium/ Dextrose 250 ml @ 10 mls/hr TITRATE PRN IV 03/13/17 17:00 (Cardizem Cd) 300 mg DAILY PO 03/14/17 10:30 UNV (Lopressor) 25 mg Q8HR PO 03/14/17 14:00 UNV (Nitrostat Sl) 0.4 mg Q5M PRN SL 03/14/17 11:00 UNV Vital Signs / I&O Vital Signs Date Time Temp Pulse Resp B/P (MAP) Pulse Ox O2 Delivery O2 Flow Rate FiO2 03/14/17 10:00 95 Nasal Cannula 4.00 03/14/17 08:00 90 03/14/17 08:00 97.8 90 33 128/75 (92) 03/14/17 07:23 93 123/85 03/14/17 06:00 94 03/14/17 04:00 98.2 85 27 138/79 (98) 91 03/14/17 04:00 85 03/14/17 02:00 104 03/14/17 00:39 96 45 03/14/17 00:20 101 139/85 03/14/17 00:00 98.2 110 14 139/85 (103) 94 03/14/17 00:00 110 03/13/17 22:00 99 03/13/17 20:00 102 28 122/69 (86) 94 03/13/17 20:00 102 03/13/17 19:39 113 109/74 03/13/17 19:00 98.0 103 24 118/79 (92) 94 03/13/17 18:00 108 03/13/17 18:00 98.3 108 24 114/74 (87) 95 03/13/17 16:00 108 03/13/17 14:00 98.3 108 24 115/74 (88) 95 03/13/17 14:00 108 03/13/17 12:00 98.3 108 24 115/74 (88) 95 03/13/17 12:00 94 116/72 03/13/17 12:00 108 03/13/17 11:58 109 116/72 I/O 03/13/17 03/13/17 03/13/17 03/14/17 03/14/17 03/14/17 07:00 15:00 23:00 07:00 15:00 23:00 Output Total 500 ml 1200 ml Balance -500 ml -1200 ml Output Urine Total 500 ml 1200 ml # Voids 2 # Bowel Movements 1 Physical Exam GENERAL: Well-nourished, well-developed patient. SKIN: Warm and dry. HEAD: Normocephalic. EYES: No scleral icterus. No injection or drainage. NECK: Supple, trachea midline. No JVD or lymphadenopathy. CARDIOVASCULAR: Irr Irr no murmurs, gallops, or rubs. RESPIRATORY: Breath sounds equal bilaterally. No accessory muscle use. GASTROINTESTINAL: Abdomen soft, non-tender, nondistended. EXTREMITIES: No cyanosis, or edema. NEUROLOGICAL: Awake, alert, and oriented x 3. Non-focal. Laboratory Laboratory Tests Test 03/13/17 13:10 03/13/17 17:08 03/13/17 21:00 03/13/17 21:40 Total Creatine Kinase 310 U/L 269 U/L Creatine Kinase MB 26.0 NG/ML Creatine Kinase MB % 8.4 % Troponin I 13.60 NG/ML 9.30 NG/ML Prothrombin Time 10.9 SEC Prothromb Time International Ratio 1.1 RATIO Activated Partial Thromboplast Time 26.6 SEC Urine Opiates Screen NEG Urine Barbiturates Screen NEG Urine Amphetamines Screen NEG Urine Benzodiazepines Screen NEG Urine Cocaine Screen NEG Urine Cannabinoids Screen NEG Test 03/13/17 23:51 03/14/17 03:30 03/14/17 09:59 Activated Partial Thromboplast Time 35.7 SEC 35.3 SEC White Blood Count 10.8 TH/MM3 Red Blood Count 4.42 MIL/MM3 Hemoglobin 13.4 GM/DL Hematocrit 39.9 % Mean Corpuscular Volume 90.4 FL Mean Corpuscular Hemoglobin 30.2 PG Mean Corpuscular Hemoglobin Concent 33.4 % Red Cell Distribution Width 16.7 % Platelet Count 196 TH/MM3 Mean Platelet Volume 9.2 FL Neutrophils (%) (Auto) 83.4 % Lymphocytes (%) (Auto) 8.2 % Monocytes (%) (Auto) 7.3 % Eosinophils (%) (Auto) 0.6 % Basophils (%) (Auto) 0.5 % Neutrophils # (Auto) 9.0 TH/MM3 Lymphocytes # (Auto) 0.9 TH/MM3 Monocytes # (Auto) 0.8 TH/MM3 Eosinophils # (Auto) 0.1 TH/MM3 Basophils # (Auto) 0.1 TH/MM3 CBC Comment DIFF FINAL Differential Comment Blood Urea Nitrogen 18 MG/DL Creatinine 0.64 MG/DL Random Glucose 129 MG/DL Total Protein 6.8 GM/DL Albumin 3.4 GM/DL Calcium Level 9.0 MG/DL Alkaline Phosphatase 103 U/L Aspartate Amino Transf (AST/SGOT) 46 U/L Alanine Aminotransferase (ALT/SGPT) 20 U/L Total Bilirubin 0.6 MG/DL Sodium Level 139 MEQ/L Potassium Level 3.3 MEQ/L Chloride Level 103 MEQ/L Carbon Dioxide Level 28.2 MEQ/L Anion Gap 8 MEQ/L Estimat Glomerular Filtration Rate 123 ML/MIN Troponin I 5.59 NG/ML Imaging Last 24 hours Impressions Chest X-Ray 03/14/17 0600 Signed Impressions: Service Date/Time: Thursday, March 14, 2017 04:04 - CONCLUSION: Stable chest x-ray with mild bibasilar opacity. Clarence Bhakta MD Assessment and Plan Problem List: (1) NSTEMI (non-ST elevated myocardial infarction) ICD Codes: I21.4 - Non-ST elevation (NSTEMI) myocardial infarction Plan: 72 y/o M admitted with what appears to be acute on chronic heart failure and Afib with RVR. He reports being complaint with medications and cardiology follow ups. No cardiovascular records in [facility] chart however he does gives a clear history of CAD with several blockages bu no stents. Troponin elevation DDx demand ischemia vs ACS/NSTEMI worsening of CAD. PATIENT CHANGED HIS MIND REGARDING LHC. NOW HE WANTS IT DONE WELL DAPT. Recommendations: Medical manage Afib and NSTEMI 1. Strict I&O 2. Low salt diet 3. Lasix 40mg IV BID, Nitro gtt 4. Daily weights 5. Cont ASA, statin and ACEi 6. Get 2Dechocardiogram 7. Cont rate control with Cardizem drip wean as tolerated to maintain HR less than 110 8. Increase PO Cardizem 8. Telemetry monitoring 9. BiPAP 11. Heparin drip 12. Keep NPO after breakfast for LHC tomorrow in the afternoon (2) Pulmonary edema ICD Codes: J81.1 - Chronic pulmonary edema Status: Acute (3) Respiratory failure ICD Codes: J96.90 - Respiratory failure, unspecified, unspecified whether with hypoxia or hypercapnia Status: Acute (4) Atrial fibrillation with RVR ICD Codes: I48.91 - Unspecified atrial fibrillation Status: Acute Problem Qualifiers (1) Pulmonary edema: Qualified Codes: J81.0 - Acute pulmonary edema (2) Respiratory failure: Qualified Codes: J96.00 - Acute respiratory failure, unspecified whether with hypoxia or hypercapnia Deyvi Osullivan MD Mar 14, 2017 11:40
[2017-03-14] MEDS: DILTIAZEM-CD 300 MG CAP ER PO SCH (12:04)
[2017-03-14] MEDS: METOPROLOL TARTRATE 25 MG TAB PO SCH ×2 (13:18→21:50)
[2017-03-14] MEDS: HEPARIN-D5W 25,000 U/250 ML 250 ML IV PRN (16:50)
[2017-03-14 18:27] LABS: APTT (PATIENT) 40.3 SEC (24.3-30.1)
[2017-03-14] MEDS: CHLORHEXIDINE GLUCONATE 2 % 1 PACK (2 CLOTHS) TOP SCH (20:34)
[2017-03-14 21:35] LABS: APTT (PATIENT) 40.4 SEC (24.3-30.1)
[2017-03-15] VITALS (14 sets, daily range): BP systolic 98–160; BP diastolic 55–96; PULSE 75–119; RESP 18–42; TEMP 98.3–98.8; O2SAT 91–99
[2017-03-15] MEDS: METOPROLOL TARTRATE 25 MG TAB PO SCH (06:00)
[2017-03-15 06:33] LABS: APTT (PATIENT) 47.8 SEC (24.3-30.1)
[2017-03-15] MEDS: INSULIN ASPART SUPPLEMENTAL SCALE SQ SCH ×4 (08:00→21:00)
[2017-03-15] MEDS: CHLORHEXIDINE 0.12% (ORAL KIT) 15 ML CUP MT SCH ×2 (08:00→21:44)
[2017-03-15] MEDS: DILTIAZEM-CD 300 MG CAP ER PO SCH (09:00)
[2017-03-15] MEDS: FUROSEMIDE 40 MG/4 ML VIAL IV PUSH SCH ×2 (09:01→18:13)
[2017-03-15] MEDS: ALLOPURINOL 300 MG TAB PO SCH (09:02)
[2017-03-15] MEDS: SODIUM CHLORIDE 0.9% FLUSH 10 ML FLUSH IV FLUSH SCH ×2 (09:02→21:44)
[2017-03-15] MEDS: ASPIRIN 81 MG CHEW TAB CHEW SCH (09:02)
[2017-03-15] MEDS ORDERED: PILL SPLITTER OTHER PRN (12:45)
[2017-03-15] MEDS ORDERED: METOPROLOL TARTRATE 5 MG/5 ML VIAL IV PUSH ONE (12:45)
--- NOTE | 2017-03-15 12:59 | HHI.CCPN ---
Subjective Remarks/Hospital Course 03/13: 72-year-old male with a medical history significant for atrial fibrillation, coronary artery disease, peripheral vascular disease who developed progressive shortness of breath about 1-1/2 hours prior to his arrival to the ER. He reportedly was visiting the area from [place]. EMS was called when he started having shortness of breath and was noted to have heart rate in the 180s. He was given 2 doses of Indocin and subsequently 20 mg Cardizem IV with which his heart rate temporarily came down however he was noted to be in A. fib with RVR on arrival in the ER. Patient was initiated on BiPAP for respiratory distress and hypoxia and was initiated on a Cardizem drip. Dr. Meza from cardiology was consulted by ER physician in view of pulmonary edema and slightly elevated troponin and A. fib with RVR. Patient was accepted for admission by critical care medicine service. I ordered Lopressor 5 mg IV stat as patient was on Cardizem 15 mg/h and still tachycardic with ventricular rate 120 to 130s. Following administration of Lopressor his heart rate came down to the 90s while on Cardizem drip. When I evaluated the patient in the ER he was on BiPAP with full facemask. He stated that since receiving the Lopressor he was feeling better however still very short of breath. He denied any chest pain. 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 He has previously had a cardiac catheterization way back in 2008 and was told he had an obstruction. He has also had a stress test in 2014 which was abnormal. Patient states that he cannot take blood thinners due to history of GI bleeding. He was advised to have a cardiac catheterization by his journeyman millwright previously. He denies any fevers or chills. Denies any chest pain nausea or vomiting. Denies any melena or rectal bleeding currently. 03/14: Resting in bed comfortably. On nasal cannula. Remains on Cardizem drip for A. fib with RVR. Troponin trending down. 03/15: Resting comfortably on 2 L nasal cannula. Diuresing well. Off Cardizem drip however still in A. fib with runs of rapid rate. Remains on heparin drip. Objective Vital Signs Date Time Temp Pulse Resp B/P (MAP) Pulse Ox O2 Delivery O2 Flow Rate FiO2 12/3/17 10:00 113 03/15/17 09:00 97 Nasal Cannula 5.00 03/15/17 08:00 98.8 25 114/56 (75) 03/14/17 00:39 45 Intake and Output 03/15/17 03/15/17 03/16/17 08:00 16:00 00:00 Output Total 600 ml Balance -600 ml Result Diagram: 03/14/17 0330 03/14/17 0330 Other Results Microbiology Date/Time Source Procedure Growth Status 03/14/17 17:30 Stool Stool Stool Occult Blood (FIONA) - Final HEMOCCULT NEGATIVE Complete Imaging Last Impressions Chest X-Ray 03/13/17 0515 Signed Impressions: Service Date/Time: Monday, March 13, 2017 05:22 - CONCLUSION: Bibasilar air space opacity in a pattern suggesting pulmonary edema. Cardiac silhouette is mildly enlarged. Clarence Bhakta MD Objective Remarks Narrative GENERAL: Well-nourished, well-developed patient, ill-appearing. SKIN: Warm and dry HEAD: Normocephalic and atraumatic. EYES: No injection or drainage. ENT: No nasal drainage noted. NECK: Supple, trachea midline. CARDIOVASCULAR: irregular rate and rhythm RESPIRATORY: On nasal cannula, good air entry bilaterally, scattered rhonchi and bibasilar crackles, no wheezing. GASTROINTESTINAL: Abdomen soft, nondistended. EXTREMITIES: 2+ pitting edema bilateral legs, mid tibia. NEUROLOGICAL: Awake. moves all extremities and sensory grossly within normal limits. Normal speech. A/P Assessment and Plan 72-year-old male with: Acute respiratory failure A. fib with RVR Non-ST elevation NM CHF CAD COPD HTN Hyperlipidemia Gout Plan: Neuro: Follow neuro status. Pain medications as needed. Cardiovascular: Diuresis with Lasix. Cardizem gtt. for rate control. Continue aspirin. Patient refuses Plavix. Agreed to heparin drip which was started on 03/13. Increased Cardizem CD and Lopressor by mouth to attempt to titrate off Cardizem drip Cardiology following Dr. Meza who has discussed cardiac catheterization and need for Plavix with patient. Decrease lisinopril to 10 mg daily in order to tolerate increasing beta sirena and calcium channel sirena for better rate control. Patient deciding regarding cardiac catheterization now and may be willing to take Plavix if needed-defer to Dr. Meza Pulmonary: Off BiPAP. Tolerating nasal cannula. Being diuresed with Lasix. Hold off on albuterol in view of A. fib with RVR. GI/liver: Heart healthy diet Renal/: Diurese with Lasix, strict intake output, monitor and replete electrolytes, follow BUN/creatinine. Heme: Follow CBC Endocrine: SSI for glycemic control if needed. Prophylaxis: Continue home dose of omeprazole, SCDs. On full anticoagulation with heparin Further recommendations per Cardiology/ Dr. Meza. Artemio Skinner MD Mar 15, 2017 12:59
[2017-03-15] MEDS: MAGNESIUM SULFATE 1 GM PREMIX 100 ML IV SCH ×2 (13:34→14:34)
[2017-03-15] MEDS: METOPROLOL TARTRATE 50 MG TAB PO SCH ×2 (13:34→22:05)
[2017-03-15] MEDS: POTASSIUM CHLORIDE 20 MEQ CONTROLLED RELEASE TAB PO SCH ×2 (13:38→21:45)
--- NOTE | 2017-03-15 15:30 | ECHRPT ---
Indication: CORONARY ATHEROSCLEROSIS CONCLUSIONS Mildly dilated left ventricle. Wall thickness is normal. There is global hypokinesis with distinct regional wall motion abnormalities. The left ventricular systolic function is severely reduced with an estimated ejection fraction in th e range of 25-35%. The left atrial size is moderately dilated. Moderate mitral valve regurgitation. The mitral valve regurgitation jet is directed posteriorly. Aortic valve sclerosis is present. Moderate aortic valve stenosis. There is trace tricuspid valve regurgitation. The estimated pulmonary arterial pressure is 50 mmHg. BP: 123 / 85 HR: 93 Rhythm: Atrial fibrillation MEASUREMENTS (Male / Female) Normal Values Technical Quality:Fair 2D ECHO LV Diastolic Diameter PLAX 6.3 cm 4.2 - 5.9 / 3.9 - 5.3 cm LV Systolic Diameter PLAX 5.8 cm IVS Diastolic Thickness 0.8 cm 0.6 - 1.0 / 0.6 - 0.9 cm LVPW Diastolic Thickness 0.8 cm 0.6 - 1.0 / 0.6 - 0.9 cm LV Relative Wall Thickness 0.3 RV Internal Dim ED PLAX 3.5 cm LVOT Diameter 2.4 cm Aortic Root Diameter 3.7 cm LA Systolic Diameter LX 4.9 cm 3.0 - 4.0 / 2.7 - 3.8 cm DOPPLER AV Peak Velocity 332.7 cm/s AV Peak Gradient 44.3 mmHg AV Mean Gradient 25.3 mmHg AV Velocity Time Integral 60.4 cm LVOT Peak Velocity 50.8 cm/s LVOT Peak Gradient 1.0 mmHg LVOT Velocity Time Integral 8.8 cm LVOT Cardiac Index 1566.0 cm/minm AV Area Cont Eq vti 0.7 cm AV Area Cont Eq pk 0.7 cm MV Area PHT 5.4 cm Mitral E Point Velocity 87.0 cm/s LV E' Lateral Velocity 5.7 cm/s Mitral E to LV E' Lateral Ratio 15.4 LV E' Septal Velocity 4.8 cm/s Mitral E to LV E' Septal Ratio 18.0 TR Peak Velocity 316.0 cm/s TR Peak Gradient 39.9 mmHg Right Atrial Pressure 10.0 mmHg Pulmonary Artery Systolic Pressu 49.9 mmHg Right Ventricular Systolic Press 49.9 mmHg PV Peak Velocity 47.6 cm/s PV Peak Gradient 0.9 mmHg FINDINGS LEFT VENTRICLE Mildly dilated left ventricle. Wall thickness is normal. There is global hypokinesis with distinct regional wall motion abnormalities. The left ventricular systolic function is severely reduced with an estimated ejection fraction in th e range of 25-35%. RIGHT VENTRICLE Normal right ventricular size and systolic function. LEFT ATRIUM The left atrial size is moderately dilated. RIGHT ATRIUM The right atrial size is normal. ATRIAL SEPTUM Normal atrial septal thickness without atrial level shunting by limited color doppler interrogation. AORTA The aortic root and proximal ascending aorta are normal in size on limited imaging. MITRAL VALVE Moderate mitral valve regurgitation. The mitral valve regurgitation jet is directed posteriorly. AORTIC VALVE Aortic valve sclerosis is present. Mild to moderate aortic valve stenosis. TRICUSPID VALVE There is trace tricuspid valve regurgitation. The estimated pulmonary arterial pressure is 50 mmHg. PULMONARY VALVE No pulmonary valve regurgitation or stenosis. VESSELS The inferior vena cava is normal in size. PERICARDIUM No pericardial effusion. Deyvi Osullivan MD (Electronically Signed) Final Date:15 March 2017 15:29
[2017-03-15] MEDS: HEPARIN-D5W 25,000 U/250 ML 250 ML IV PRN (18:20)
[2017-03-15] MEDS ORDERED: HEPARIN-NS/PF INJ 1,000 ML ONE (18:59)
[2017-03-15] MEDS ORDERED: VERAPAMIL HCL 5 MG/2 ML VIAL ONE (19:06)
[2017-03-15] MEDS ORDERED: HEPARIN SODIUM - IV 10,000 UNITS/10 ML VIAL ONE (19:06)
[2017-03-15] MEDS ORDERED: MIDAZOLAM HCL 2 MG/2 ML VIAL ONE (19:07)
[2017-03-15] MEDS ORDERED: NITROGLYCERIN INJ 5 ML ONE (19:07)
[2017-03-15 19:32] LABS: BICARBONATE 31.4 MEQ/L (21.0-32.0); MAGNESIUM 2.3 MG/DL (1.5-2.5); POTASSIUM 3.9 MEQ/L (3.5-5.1)
--- NOTE | 2017-03-15 19:44 | CATHPROC ---
TelemetryWeb HIS Report Study Information Study Number Admission Scheduled Start Study Start [id number] Mar 13 2017 6:11AM 03/15/2017 Mar 15 2017 6:56PM [place] Service Cardiac Catheterization Admit Source Facility Department Other [facility] - [facility] Physician and Clinical Staff Initial MD Osullivan, Deyvi Entry Engineer Jorge Cornell,HOLLY Other cathlab, cathlab Recorder Kurt Echavarria RCIS(BS) Scrub Katerina Henao,RT(R) (BS) Procedures Performed Procedure Location (Site) Vessel Name Coronary Angiograms LCA Left Coronary Coronary Angiograms RCA Right Coronary L Heart Cath Wire insertion Radial (right) Radial Art. Equipment Time Software Applications Architect Description Size Mfg Part Number Used/Scraped TRANSDUCER, TRUWAVE [id number] 18:57 [email or web address] * Used W/STOCKCOCK *[id number] *[id number] *[id number] *[id number] 18:57 [employer] CK1 PACK, CCL CUSTOM * Used *[id number] 18:57 [employer] CK1 SUPPORT, ARTERIAL ADULT [id number] *[id number] Used BAND, RADIAL COMPRESSION TR [id number] 19:31 [employer] MEDICAL 24CM Used SHORT 24 *[id number] 18:57 [employer] MEDICAL WIRE, 3MMJ .035 180CM 180CM Used *[id number] 18:57 [employer]AM[employer] MANIFOLD, 4 PORT * Used *[id number] 18:57 [employer] OMNIPAQUE, 350 MG, 150ML 150ML [id number] Used [id number] 18:57 [employer],WARM AIR CCL * Used *[id number] SHEATH, FR6 TRANSRADIAL [id number] 18:57 [employer] FR 6 Used SLENDER 10CM *[id number] History: Current Medications Medication Dosage/Unit Route Frequency Last Date/Time Taken Statins (any) Beta Janett CARDIZEM ASA History: Allergies Allergy Reaction oxycodone Hallucinations clopidogrel Tachycardia History: Risk Factors Family History of Hypertension Dyslipidemia Previous [place] Previous Heart Failure Premature CAD Yes Yes No No No Prior Valve Prior PCI Prior CABG Surgery No No No Cerebrovascular Peripheral Artery Chronic Lung On Dialysis Diabetes Disease Disease Disease No No Yes Yes No History: Symptoms/Diagnosis Selection Items Chest pain History: Stress Tests Stress or Imaging Studies Performed No History: Arrhythmias Selection Items Atrial fibrillation History: Other Disease Selection Items HTN History: Other Current Smoker Method Quit Packs a Day Years Used Pack Years No Cigarettes 17 Years Ago 4 48 192 Labs Hgb (g/dl) Hct (%) WBC (l/cumm) Platelets (thousands) 11.60-17.00 35.00-51.00 4.00-11.00 150.00-450.00 13.4 39.9 10.8 196 Glucose (mg/dl) BUN (mg/dl) Creatinine (mg/dl) BUN:Creatinine (1:x) 74.00-106.00 7.00-18.00 0.50-1.30 10.00-20.00 129 18 0.6 30 Na (meq/l) K (meq/l) 136.00-145.00 3.50-5.10 139 3.3 INR (PTT:PT) 0.90-1.10 1.1 Troponin I (ng/ml) CPK (u/l) CPK-MB (ng/ML) 0.02-0.05 26.00-308.00 0.50-3.60 5.59 269 8.4 Medication Medication Total Dose (Bolus/Oral) Medication Total Dosage/Unit 1% XYLOCAINE 3 mL FENTANYL 50 mcg RADIAL COCKTAIL 5 mL (Bolus) VERSED 2 mg Medications (Bolus/Oral) Medication Time Given Dosage/Unit Administered By Reason VERSED 03/15/2017 7:17:22 PM 2 mg Jorge Cornell 2 mg VERSED given in lab by Jorge Cornell, RN in Left Antecubital via Peripheral IV. Ordered by Deyvi Broderick. FENTANYL 03/15/2017 7:17:29 PM 50 mcg Jorge Cornell 50 mcg FENTANYL given in lab by Jorge Cornell RN in Left Antecubital via Peripheral IV. Ordered by Deyvi Osullivan. 1% XYLOCAINE 03/15/2017 7:17:52 PM 3 mL Deyvi Osullivan 3 mL 1% XYLOCAINE given in lab by Deyvi Osullivan in Left Radial via Subcutaneous. Ntg 200mcg Verapamil 2.5mg Heparin RADIAL COCKTAIL 03/15/2017 7:18:56 PM 5 mL (Bolus) Meza-Leighann, Deyvi 2500U 5 mL (Bolus) RADIAL COCKTAIL given in lab by Deyvi Osullivan in Right Radial via Radial. Using [Sara ution Name]. Ordered by Deyvi Osullivan. Reason: Ntg 200mcg Verapamil 2.5mg Heparin 2500U. Medication (Drip) Medication Time Given Dosage/Unit Concentration/Unit Diluent (ml) Solutio n IV Solutions 03/15/2017 6:56:04 PM 0 mL (IV) 500 NaCl .9 Patient arrived on IV Solutions given by joycelabjoycelab in Left Antecubital via Peripheral IV. Pump /Drip Flow = 20 ml/hr using NaCl .9. Ordered by Deyvi Osullivan. Final Case Assessment Cardiovascular HR Rhythm NIBP Chest Pain 94 a-fib 122/89 0 Edema Present Skin color Skin Mild Normal Warm Dry Circulatory - Right Pulses Dorsalis Pedis Posterior Tibial Femoral Brachial Radial 1 1 1 1 1 Scale (0,1,2,3,4,d) Circulatory - Left Pulses Dorsalis Pedis Posterior Tibial Femoral Brachial Radial 1 1 1 Scale (0,1,2,3,4,d) Circulatory - Lower Extremities Color Lower Right Color Lower Left Normal Normal Neurological State Oriented to time-place- Alert Moves all extremities person Respiration - General Respiration Rate SpO2 (%) O2 (lpm) (B/min) 20 92 4 Chronological Log Time Study Chronological Log 18:50:00 Patient arrived via Bed. 18:50:01 Patient Name, D.O.B, / Armband Verified By R.N. 18:50:20 Consent signed by the physician and the patient and verified by the [facility] staff. 18:55:56 Pre-op and post- op instructions given; patient acknowledges understanding of instructions. 18:55:57 Verbal Stimulation=2 Physical Stimulation=2 Airway=2 Respiration=2 TOTAL=8. (0=absent, 1=li mited, 2=present) 18:55:58 Presedation assessment performed by [facility] RN. 18:55:58 Allens test performed on the right radial and ulnar artery. POSITIVE. 18:55:59 Immediate Presedation assesment performed by physician. 18:55:59 Patient has been NPO for More than 6Hrs. 18:56:01 Skin Breakdown- none per patient 18:56:02 Patient Warmer Placed on the Table. 18:56:03 Homero Prominences Protected 18:56:03 A # 20 IV was noted in the Antecubital (left). Grade = 0 Patient arrived on IV Solutions given by cathlabserafin in Left Antecubital via Peripheral IV . Pump/Drip Flow = 20 18:56:04 ml/hr using NaCl .9. Ordered by Deyvi Osullivan. 18:56:04 History and physical on the chart or being dictated. 19:02:23 Reference ECG taken 19:04:30 Right Radial and groin(s) prepped with 2% chlorhexidine, and draped after a 3 min. waiting time. Vitals capture started with the following parameters, Patient=Adult, Interval=5 min, Initial Pr gncplr=741 mmHg, 19:04:55 Deflation Rate=5 mmHg, Cuff placed on Left Arm 19:05:27 EO=612 bpm, HQZX=758/105 mmhg, SpO2=94.0 %, Resp=16 B/min, Pain=0, Brennon=10, Hubbard=2 19:08:26 MD paged 19:10:28 ZV=439 bpm, UNKG=319/140 mmhg, SpO2=95.0 %, Resp=16 B/min, Pain=0, Brennon=10, Hubbard=2 19:12:10 Pressure channel 1 zeroed. 19:13:11 MD responded 19:14:24 MD arrived. 19:14:29 Contrast Scanned 19:14:30 Immediate Presedation assesment performed by physician. 19:16:10 TF=804 bpm, PZBI=310/112 mmhg, SpO2=94.0 %, Resp=20 B/min, Pain=0, Brennon=7, Hubbard=2 Time Out. Correct patient, correct procedure, correct physician, power injector loaded, or not loaded with contrast with 19:17:22 surgical team present. Time Out Concurred by MD and individual staff in procedure. 19:17:22 2 mg VERSED given in lab by Jorge Cornell, RN in Left Antecubital via Peripheral IV. Order ed by Deyvi Osullivan. 19:17:29 50 mcg FENTANYL given in lab by Jorge Cornell, RN in Left Antecubital via Peripheral IV. O rdered by Deyvi Osullivan. 19:17:40 Case Start 19:17:52 3 mL 1% XYLOCAINE given in lab by Deyvi Osullivan in Left Radial via Subcutaneous. 19:18:30 Access site was Right Radial Artery. A SHEATH, FR6 TRANSRADIAL SLENDER 10CM FR 6 was advanced into the Radial (right) using the Perc utaneous 19:18:43 technique. 5 mL (Bolus) RADIAL COCKTAIL given in lab by Deyvi Osullivan in Right Radial via Radial. in charisse [Solution Name]. 19:18:56 Ordered by Deyvi Osullivan. Reason: Ntg 200mcg Verapamil 2.5mg Heparin 2500U. A JR 4.0 INFINITI CATHETER FR 5 was advanced over a wire. OMNIPAQUE, 350 MG, 150ML 150ML was us ed for 19:19:35 injections. 19:20:30 NP=766 bpm, DFQU=926/81 mmhg, SpO2=94.0 %, Resp=18 B/min, Pain=0, Brennon=7, Hubbard=2 19:20:47 The RCA was injected and visualized at various angles. OMNIPAQUE, 350 MG, 150ML 150ML used . Recorded Pressure: Ao, CR=951, Condition=Condition 1 19:20:56 (Aorta) Ao 113/80/95 After removing the current catheter a JL 3.5 INFINITI CATHETER FR 5 was advanced over a WIRE, 3 MMJ .035 180CM 19:22:49 180CM. 19:25:20 Wire removed 19:25:22 A WIRE, 3MMJ .035 180CM 180CM was inserted via Radial (right). 19:25:25 HR=96 bpm, CYZF=388/88 mmhg, SpO2=92.0 %, Resp=18 B/min, Pain=0, Brennon=7, Hubbard=3 After removing the current catheter a JL 4.0 INFINITI CATHETER FR 5 was advanced over a WIRE, 3 MMJ .035 180CM 19:26:19 180CM. 19:27:27 The LCA was injected and visualized at various angles. OMNIPAQUE, 350 MG, 150ML 150ML used . 19:30:22 HR=93 bpm, TIKS=835/90 mmhg, SpO2=91.0 %, Resp=17 B/min, Pain=0, Brennon=7, Hubbard=2 19:31:54 Case End 19:31:57 Catheter(s) removed without difficulty 19:32:00 No case complications noted. 19:32:01 Cine recording checked. 19:33:25 [facility] called. Spoke to HOLLY Lima 19:34:19 Bedside Report will be given. Radial Compression Device Used. 13 mLs of air placed in BAND, RADIAL COMPRESSION TR SHORT 24 2 4CM. Affected 19:35:06 hand 93 % O2 saturation. 19:35:25 DK=405 bpm, JRNL=054/89 mmhg, SpO2=94.0 %, Resp=20 B/min, Pain=0, Brennon=9, Hubbard=2 Assessment: Final Case, HR=94 BPM, Rhythm=a-fib, EMDJ=021/89 mmhg, Chest Pain=0, Edema=Mild, C olor=Normal, Skin = Warm, Dry Right Pulses: Kyrie Ped=1, Post Tib=1, Femoral=1, Brachial=1, Radial=1 Left Pulses: Kyrie Ped=1, Post Tib=1, Femoral=1 19:36:11 Lower Right Extremities: Color=Normal Lower Left Extremities: Color=Normal Neurological: State=Alert, Ox3, FERNANDEZ Respiration: Resp=20 B/min, SpO2=92 %, O2=4 lpm 19:38:50 A Left Heart Cath was performed. 19:38:51 [facility] Study - Contrast Media Used In Study Contrast Total Opened (mL) Total Used (mL) Total Wasted (mL) Omnipaque 150 40 110 End Study - Maximum Contrast Load Max Contrast Load (mL) 900.0 End Study - Radiation Exposure Fluoro Time (minutes) 4.1 End Study - Patient Disposition Complications Transferred To Interventional Outcome No Critical Care Bed successful
[2017-03-15] MEDS ORDERED: MISC INFORMATION XX ONE (19:45)
--- NOTE | 2017-03-15 20:13 | MA ---
cc: BENITEZ ORR DATE: 03/15/2017. PROCEDURE PERFORMED: 1. Left heart catheterization. 2. Selective right and left coronary angiography. INDICATIONS FOR THE PROCEDURE: Non-S-T elevation myocardial infarction. New-onset atrial fibrillation. Severe LV systolic dysfunction. Chest pain. Acute systolic heart failure. APPROACH: Right transradial. DESCRIPTION OF THE PROCEDURE IN DETAIL: Consent signed. The patient was brought into the cardiac laborer wharf in a fasting state. The right wrist was prepped and draped in sterile fashion using 1% lidocaine for local anesthesia and a micropuncture kit. A 6-Uzbek sheath was inserted into the right radial artery. Antispasmodic cocktail given then selective right and left coronary angiography was performed with a JR-4 and a JL -4 diagnostic catheters. Angiography was taken in multiple views. The patient has a known moderate to severe aortic stenosis, thus the left ventricle was not crossed. The patient tolerated the procedure well without complications. Estimated blood loss less than 30 mL. Total contrast used 45 mL. The right wrist access site was closed with a TR band. RESULTS: ANGIOGRAPHY: 1. Right coronary artery. The right coronary artery is a nondominant vessel. It has 100% occlusion in its mid segment. The distal segment of the right coronary artery is filled in by bridge collaterals coming from the proximal right coronary artery. Again, this vessel is small and is giving off two posterolateral branches. 2. Left main. The left main is patent with DICKSON III flow and with minimal calcification, it is giving off a left circumflex artery, a left anterior descending vessel and a ramus vessel. 3. Left anterior descending. The left anterior descending has a proximal 90% lesion, is diffusely diseased. The first diagonal is 100% occluded. The second diagonal is patent. 4. Left circumflex. The left circumflex artery is the dominant vessel giving off the blood supply to the posterior descending artery. It is composed of one obtuse marginal vessel, which is diffusely diseased and small. The left circumflex artery has a 90% lesion in its distal segment and then it gives off an obtuse marginal that is small and 100% occluded. The posterior descending artery segment of the left circumflex is tortuous and patent with DICKSON III flow and nonobstructive coronary artery disease. 5. The ramus intermedius vessel is a prominent vessel. It is tortuous. It goes all the way into the apex. There is no significant obstruction in this artery. CONCLUSION: 1. Severe three vessel coronary artery disease involving the right coronary artery, the left circumflex artery and the left anterior descending. 2. Moderate aortic stenosis. 3. Severe AV systolic dysfunction. RECOMMENDATIONS: The patient will consult to CT surgery for a CABG and AVR. In the meantime, continue heparin drip and aggressive medical management for coronary artery disease as well as rate control for atrial fibrillation. MD CYNTHIA Guadalupe/HILDA /7:36 PM /7:59 PM MTDTea
--- NOTE | 2017-03-15 21:22 | RADRPT ---
EXAM DATE/TIME: 03/15/2017 20:26 [facility] COMPARISON: No previous studies available for comparison. INDICATIONS : Bruit. MEDICAL HISTORY : Hypercholesterolemia. Hypertension. Coronary artery disease. Atrial fibrillation. COPD. Dyspnea. SURGICAL HISTORY : Abdominal aortic aneurysm repair. Bilateral cataract surgery. Circumcision. ENCOUNTER: Initial ACUITY: > 1 year PAIN SCORE: 0/10 LOCATION: Bilateral neck PEAK SYSTOLIC VELOCITIES (cm/sec): ICA/CCA RATIO: Right: 3.7 ICA: Right: 176.1 CCA: Right: 47.7 Left: 28.5 ECA: Right: 123.7 Left: 118.0 VERTEBRAL: Right: 70.5 antegrade Left: 72.6 antegrade Elevated flow velocities and ICA/CCA ratios have been found to correlate with increased degrees of vessel stenosis, calculated as percentage of diameter relative to a normal segment of distal ICA/CCA FINDINGS: RIGHT CAROTID: Severe plaque seen of the bulb and proximal internal carotid artery with estimated 50-70% narrowing o f the proximal ICA but there is flow velocities suggesting higher grade narrowing. LEFT CAROTID: Severe plaque of the bifurcation. The ICA is occluded proximally. VERTEBRAL ARTERIES: Antegrade flow is seen in both vertebral arteries. MISCELLANEOUS: None. CONCLUSION: Bilateral bifurcation atherosclerotic disease. There is hemodynamically significant stenosis of the r ight internal carotid artery and occlusion of the left internal carotid artery. Clarence Good MD on March 15, 2017 at 21:18 Board Certified Radiologist. This report was verified electronically.
[2017-03-16] VITALS (37 sets, daily range): BP systolic 94–140; BP diastolic 58–103; PULSE 98–150; RESP 18–46; TEMP 98.2–98.6; O2SAT 90–98
[2017-03-16] MEDS: CHLORHEXIDINE GLUCONATE 2 % 1 PACK (2 CLOTHS) TOP SCH ×2 (04:00→21:21)
[2017-03-16] MEDS: METOPROLOL TARTRATE 50 MG TAB PO SCH ×3 (05:32→21:47)
[2017-03-16 05:51] LABS: HEMATOCRIT 42.7 % (39.0-51.0); MEAN CELL VOLUME 91.5 FL (80.0-100.0); MEAN CORPUSCULAR HEMOGLOBIN 30.1 PG (27.0-34.0); MEAN CORPUSCULAR HGB CONC 32.9 % (32.0-36.0); PLATELET COUNT 207 TH/MM3 (150-450); RED BLOOD COUNT 4.66 MIL/MM3 (4.50-5.90); RED CELL DISTRIBUTION WIDTH 16.8 % (11.6-17.2); REVIEW FLAG FINAL; WHITE BLOOD COUNT 11.8 TH/MM3 (4.0-11.0)
[2017-03-16 05:55] LABS: AUTOMATED NEUTROPHIL # 9.8 TH/MM3 (1.8-7.7); BASOPHIL % 0.3 % (0.0-2.0); EOSINOPHIL % 0.4 % (0.0-4.0); HEMATOCRIT 42.4 % (39.0-51.0); HEMO FLAGS DIFF FINAL; LYMPH % 5.8 % (9.0-44.0); LYMPHOCYTE # 0.7 TH/MM3 (1.0-4.8); MEAN CELL VOLUME 90.8 FL (80.0-100.0); MEAN CORPUSCULAR HEMOGLOBIN 29.8 PG (27.0-34.0); MEAN CORPUSCULAR HGB CONC 32.8 % (32.0-36.0); MONO % 7.9 % (0.0-8.0); NEUT % 85.6 % (16.0-70.0); PLATELET COUNT 201 TH/MM3 (150-450); RED BLOOD COUNT 4.67 MIL/MM3 (4.50-5.90); RED CELL DISTRIBUTION WIDTH 16.6 % (11.6-17.2); WHITE BLOOD COUNT 11.4 TH/MM3 (4.0-11.0)
[2017-03-16 06:01] LABS: APTT (PATIENT) 39.4 SEC (24.3-30.1)
[2017-03-16 06:14] LABS: ANION GAP 7 MEQ/L (5-15); AST (GOT) 78 U/L (15-37); BICARBONATE 29.9 MEQ/L (21.0-32.0); BLOOD UREA NITROGEN 25 MG/DL (7-18); CHLORIDE 98 MEQ/L (98-107); GLOMERULAR FILTRATION RATE 81 ML/MIN (>89); POTASSIUM 3.9 MEQ/L (3.5-5.1); SODIUM (NA) 135 MEQ/L (136-145)
[2017-03-16 06:21] LABS: ALKALINE PHOSPHATASE 111 U/L (45-117); ALT (GPT) 52 U/L (12-78)
--- NOTE | 2017-03-16 06:28 | RADRPT ---
EXAM DATE/TIME: 03/16/2017 04:58 [facility] COMPARISON: CHEST SINGLE AP, March 14, 2017, 4:04. INDICATIONS : Shortness of breath, possible effusion. MEDICAL HISTORY : Chronic obstructive pulmonary disease. Congestive heart failure. A-Fib SURGICAL HISTORY : None. ENCOUNTER: Subsequent ACUITY: 4 - 6 days PAIN SCORE: 0/10 LOCATION: Bilateral chest FINDINGS: A single view of the chest demonstrates the lungs to be symmetrically aerated without evidence of mas s, infiltrate or effusion. Mild streaky opacity remains at the lung bases.. Mild atherosclerotic ch anges are present in the aorta. The cardiomediastinal contours are unremarkable. Osseous structures are intact. CONCLUSION: Stable appearance with mild streaky opacity of the lung bases which could indicate at electasis or scarring. Infiltrate is less likely. Matthew Preston MD on March 16, 2017 at 6:25 Board Certified Radiologist. This report was verified electronically.
[2017-03-16] MEDS: CHLORHEXIDINE 0.12% (ORAL KIT) 15 ML CUP MT SCH ×2 (08:00→19:33)
[2017-03-16] MEDS: INSULIN ASPART SUPPLEMENTAL SCALE SQ SCH ×4 (08:00→21:00)
[2017-03-16] MEDS ORDERED: LISINOPRIL 20 MG TAB PO SCH (09:00)
[2017-03-16] MEDS: SODIUM CHLORIDE 0.9% FLUSH 10 ML FLUSH IV FLUSH SCH ×3 (09:00→19:59)
--- NOTE | 2017-03-16 09:18 | HHI.CCPN ---
Subjective Remarks/Hospital Course 03/13: 72-year-old male with a medical history significant for atrial fibrillation, coronary artery disease, peripheral vascular disease who developed progressive shortness of breath about 1-1/2 hours prior to his arrival to the ER. He reportedly was visiting the area from [place]. EMS was called when he started having shortness of breath and was noted to have heart rate in the 180s. He was given 2 doses of Indocin and subsequently 20 mg Cardizem IV with which his heart rate temporarily came down however he was noted to be in A. fib with RVR on arrival in the ER. Patient was initiated on BiPAP for respiratory distress and hypoxia and was initiated on a Cardizem drip. Dr. Meza from cardiology was consulted by ER physician in view of pulmonary edema and slightly elevated troponin and A. fib with RVR. Patient was accepted for admission by critical care medicine service. I ordered Lopressor 5 mg IV stat as patient was on Cardizem 15 mg/h and still tachycardic with ventricular rate 120 to 130s. Following administration of Lopressor his heart rate came down to the 90s while on Cardizem drip. When I evaluated the patient in the ER he was on BiPAP with full facemask. He stated that since receiving the Lopressor he was feeling better however still very short of breath. He denied any chest pain. 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 He has previously had a cardiac catheterization way back in 2008 and was told he had an obstruction. He has also had a stress test in 2014 which was abnormal. Patient states that he cannot take blood thinners due to history of GI bleeding. He was advised to have a cardiac catheterization by his label sewer previously. He denies any fevers or chills. Denies any chest pain nausea or vomiting. Denies any melena or rectal bleeding currently. 03/14: Resting in bed comfortably. On nasal cannula. Remains on Cardizem drip for A. fib with RVR. Troponin trending down. 03/15: Resting comfortably on 2 L nasal cannula. Diuresing well. Off Cardizem drip however still in A. fib with runs of rapid rate. Remains on heparin drip. 03/16 Patient s/p cardiac cath yesterday showed 3VD, mod. . CTS consult for CABG and AVR. Objective Vital Signs Date Time Temp Pulse Resp B/P (MAP) Pulse Ox O2 Delivery O2 Flow Rate FiO2 03/16/17 07:34 96 Nasal Cannula 5.00 03/16/17 06:00 124 03/16/17 04:00 98.3 18 106/74 (85) 03/14/17 00:39 45 Intake and Output 03/16/17 03/16/17 03/17/17 08:00 16:00 00:00 Intake Total 240 ml Output Total 650 ml Balance -410 ml Result Diagram: 03/16/17 0510 03/16/17 0510 Other Results Laboratory Tests Test 03/15/17 17:25 03/16/17 05:10 Blood Urea Nitrogen 29 MG/DL 25 MG/DL Creatinine 0.92 MG/DL 0.92 MG/DL Random Glucose 107 MG/DL 127 MG/DL Calcium Level 9.3 MG/DL 9.1 MG/DL Magnesium Level 2.3 MG/DL Sodium Level 136 MEQ/L 135 MEQ/L Potassium Level 3.9 MEQ/L 3.9 MEQ/L Chloride Level 99 MEQ/L 98 MEQ/L Carbon Dioxide Level 31.4 MEQ/L 29.9 MEQ/L Anion Gap 6 MEQ/L 7 MEQ/L Estimat Glomerular Filtration Rate 81 ML/MIN 81 ML/MIN White Blood Count 11.4 TH/MM3 Red Blood Count 4.67 MIL/MM3 Hemoglobin 13.9 GM/DL Hematocrit 42.4 % Mean Corpuscular Volume 90.8 FL Mean Corpuscular Hemoglobin 29.8 PG Mean Corpuscular Hemoglobin Concent 32.8 % Red Cell Distribution Width 16.6 % Platelet Count 201 TH/MM3 Mean Platelet Volume 9.3 FL Neutrophils (%) (Auto) 85.6 % Lymphocytes (%) (Auto) 5.8 % Monocytes (%) (Auto) 7.9 % Eosinophils (%) (Auto) 0.4 % Basophils (%) (Auto) 0.3 % Neutrophils # (Auto) 9.8 TH/MM3 Lymphocytes # (Auto) 0.7 TH/MM3 Monocytes # (Auto) 0.9 TH/MM3 Eosinophils # (Auto) 0.0 TH/MM3 Basophils # (Auto) 0.0 TH/MM3 CBC Comment DIFF FINAL Differential Comment Activated Partial Thromboplast Time 39.4 SEC Total Protein 7.5 GM/DL Albumin 3.6 GM/DL Alkaline Phosphatase 111 U/L Aspartate Amino Transf (AST/SGOT) 78 U/L Alanine Aminotransferase (ALT/SGPT) 52 U/L Total Bilirubin 1.0 MG/DL Troponin I 1.03 NG/ML B-Type Natriuretic Peptide 622 PG/ML Imaging Last Impressions Chest X-Ray 03/16/17 0600 Signed Impressions: Service Date/Time: Thursday, March 16, 2017 04:58 - CONCLUSION: Stable appearance with mild streaky opacity of the lung bases which could indicate atelectasis or scarring. Infiltrate is less likely. Matthew Preston MD Carotid Artery Ultrasound 03/15/17 0000 Signed Impressions: Service Date/Time: Wednesday, March 15, 2017 20:26 - CONCLUSION: Bilateral bifurcation atherosclerotic disease. There is hemodynamically significant stenosis of the right internal carotid artery and occlusion of the left internal carotid artery. Clarence Good MD Objective Remarks Narrative GENERAL: Well-nourished, well-developed patient, ill-appearing. SKIN: Warm and dry HEAD: Normocephalic and atraumatic. EYES: No injection or drainage. ENT: No nasal drainage noted. NECK: Supple, trachea midline. CARDIOVASCULAR: irregular rate and rhythm, Tachycardic RESPIRATORY: On nasal cannula, good air entry bilaterally, scattered rhonchi and bibasilar crackles, no wheezing. GASTROINTESTINAL: Abdomen soft, nondistended. EXTREMITIES: 2+ pitting edema bilateral legs, mid tibia. NEUROLOGICAL: Awake. moves all extremities and sensory grossly within normal limits. Normal speech. A/P Assessment and Plan 72-year-old male with: Acute respiratory failure A. fib with RVR Non-ST elevation [place] CHF CAD COPD HTN Hyperlipidemia Gout Plan: Neuro: Monitor neuro status. Avoid sedatives CV: Monitor HR and BP keep MAP>65mmHg s/p cardiac cath 03/15 showed 3VD, mod. , CTS consulted for possible CABG and AVR. Cards is following- Dr. Meza. Off Heparin drip. On Cardizem CD 300mg daily, Lopressor 50mg Q8, Lisinopril 10mg daily, ASA 81mg daily Pulm: Continue with oxygen keep sat >92% Bronchodilators GI/liver: Heart healthy diet Renal/:Monitor renal function, electrolytes replacement as needed, On Lasix 40mg BID, KCL 20meq BID Heme:Monitor CBC Endocrine: SSI for glycemic control if needed. Prophylaxis: SCDs.Pepcid. Continue heparin drip. Level 3 . Maritza Healy MD Mar 16, 2017 09:18
[2017-03-16] MEDS ORDERED: MAGNESIUM OXIDE 400 MG TAB PO PRN (09:30)
[2017-03-16] MEDS ORDERED: POTASSIUM PHOSPHATE MONOBASIC 500 MG TAB PO/TUBE PRN (09:30)
[2017-03-16] MEDS ORDERED: RESP: IPRATROPIUM 0.5 MG/2.5 ML NEB NEB PRN (09:30)
[2017-03-16] MEDS ORDERED: POTASSIUM PHOSPHATE MONOBASIC 500 MG TAB PO PRN (09:30)
[2017-03-16] MEDS ORDERED: SODIUM PHOSPHATE INJ 30 MMOL in SODIUM CHLOR 0.9% 250 ML INJ 240 ML IV PRN (09:30)
[2017-03-16] MEDS ORDERED: POTASSIUM PHOSPHATE INJ 30 MMOL in SODIUM CHLOR 0.9% 250 ML INJ 250 ML IV PRN (09:30)
[2017-03-16] MEDS ORDERED: POTASSIUM CHLORIDE 25 MEQ EFFERVESCENT TAB PO PRN (09:30)
[2017-03-16] MEDS ORDERED: MAGNESIUM SULFATE INJ 4 GM in SODIUM CHLORIDE 0.9% INJ 92 ML IV PRN (09:30)
[2017-03-16] MEDS ORDERED: HEPARIN-D5W 25,000 U/250 ML 250 ML IV PRN ×2 (09:30→22:00)
[2017-03-16] MEDS ORDERED: MAGNESIUM SULFATE INJ 2 GM in SODIUM CHLORIDE 0.9% INJ 96 ML IV PRN (09:30)
[2017-03-16] MEDS ORDERED: POTASSIUM CHLOR 40 MEQ PREMIX 100 ML IV PRN ×2 (09:30)
[2017-03-16] MEDS ORDERED: POTASSIUM CHLOR 20 MEQ PREMIX 100 ML IV PRN ×2 (09:30)
[2017-03-16] MEDS: DILTIAZEM-CD 300 MG CAP ER PO SCH (09:39)
[2017-03-16] MEDS: ASPIRIN 81 MG CHEW TAB CHEW SCH (09:39)
[2017-03-16] MEDS: FUROSEMIDE 40 MG/4 ML VIAL IV PUSH SCH ×2 (09:40→17:44)
[2017-03-16] MEDS: ALLOPURINOL 300 MG TAB PO SCH (09:40)
[2017-03-16] MEDS: POTASSIUM CHLORIDE 20 MEQ CONTROLLED RELEASE TAB PO SCH ×2 (09:40→21:00)
[2017-03-16] MEDS ORDERED: METOPROLOL TARTRATE 5 MG/5 ML VIAL ONE (10:02)
[2017-03-16] MEDS ORDERED: METOPROLOL TARTRATE 5 MG/5 ML VIAL IV PUSH ONE ×2 (10:30)
[2017-03-16] MEDS ORDERED: IOHEXOL 350 MG/ML 50 ML BTL (for Cath Lab) OTHER ONE (11:08)
[2017-03-16 11:10] LABS: APTT (PATIENT) 29.6 SEC (24.3-30.1); PROTHROMBIN TIME - PATIENT 10.3 SEC (9.8-11.6)
[2017-03-16] MEDS ORDERED: PAPAVERINE INJ 60 MG, NITROGLYCERIN INJ 100 MCG, DILTIAZEM INJ 100 MG in SODIUM CHLORID... IRRIGATION SCH (11:15)
[2017-03-16] MEDS ORDERED: CHLORHEXIDINE GLUCONATE 4% SOLN 120 ML BTL TOPICAL SCH (11:15)
[2017-03-16] MEDS ORDERED: DEXTROSE 50% IN WATER 50 ML VIAL(D50) IV PUSH PRN (11:15)
[2017-03-16] MEDS ORDERED: ceFAZolin 2 GM PREMIX 50 ML IV SCH (11:15)
[2017-03-16] MEDS ORDERED: INSULIN REGULAR (IV INFUSION) 100 UNITS in SODIUM CHLORIDE 0.9% INJ 99 ML IV PRN (11:15)
[2017-03-16] MEDS ORDERED: CEFAZOLIN INJ 500 MG in SODIUM CHLORIDE 0.9% IRR BTL 500 ML IRRIGATION SCH (11:15)
[2017-03-16] MEDS ORDERED: SODIUM CHLORIDE 0.9% FLUSH 10 ML FLUSH IV FLUSH PRN (11:15)
[2017-03-16] MEDS ORDERED: METOPROLOL TARTRATE 25 MG TAB PO SCH (11:15)
[2017-03-16] MEDS: RESP: IPRATROPIUM 0.5 MG/2.5 ML NEB NEB SCH ×4 (11:18→23:18)
[2017-03-16] MEDS: HEPARIN-D5W 25,000 U/250 ML 250 ML IV PRN ×2 (11:59→17:49)
[2017-03-16] MEDS ORDERED: DILTIAZEM HCL 25 MG/5 ML VIAL ONE (12:08)
[2017-03-16] MEDS: FAMOTIDINE 20 MG/2 ML VIAL IV PUSH SCH ×2 (12:25→20:59)
--- NOTE | 2017-03-16 12:29 | PD.CAR.PN ---
CVT Progress Note Subjective/Hospital Course: sts discussed with pt RISK SCORES About the STS Risk Calculator Procedure: AV Replacement + CAB Risk of Mortality: 6.305% Morbidity or Mortality: 38.043% Long Length of Stay: 21.764% Short Length of Stay: 14.933% Permanent Stroke: 2.04% Prolonged Ventilation: 28.593% DSW Infection: 1.074% Renal Failure: 9.987% Reoperation: 13.747% Objective: Vital Signs Date Time Temp Pulse Resp B/P (MAP) Pulse Ox O2 Delivery O2 Flow Rate FiO2 03/16/17 11:30 136 03/16/17 11:30 136 46 106/68 (81) 96 03/16/17 11:00 133 03/16/17 11:00 133 39 119/72 (88) 97 03/16/17 10:43 140 03/16/17 10:43 140 45 94/58 (70) 98 03/16/17 10:30 133 24 105/66 (79) 95 03/16/17 10:30 133 03/16/17 10:00 150 03/16/17 10:00 150 32 140/84 (102) 96 03/16/17 09:30 139 03/16/17 09:30 139 31 131/90 (104) 96 03/16/17 09:02 133 45 122/95 (104) 93 03/16/17 09:02 133 03/16/17 09:01 133 03/16/17 09:01 133 39 127/103 (111) 92 03/16/17 09:00 127 39 118/83 (95) 97 03/16/17 09:00 127 03/16/17 08:00 119 03/16/17 08:00 98.6 119 26 102/64 (77) 98 03/16/17 07:34 96 Nasal Cannula 5.00 03/16/17 06:00 124 03/16/17 04:00 98.3 130 18 106/74 (85) 94 03/16/17 04:00 130 03/16/17 02:00 101 03/16/17 00:00 116 03/16/17 00:00 98.2 116 22 109/74 (86) 90 03/15/17 22:00 111 03/15/17 22:00 98.7 111 24 160/96 (117) 92 03/15/17 21:28 94 Nasal Cannula 5.00 03/15/17 20:00 106 03/15/17 20:00 98.3 106 30 117/78 (91) 93 03/15/17 18:00 119 03/15/17 18:00 98.6 119 42 133/61 (85) 91 03/15/17 16:00 102 03/15/17 14:00 105 Labs: Laboratory Tests Test 03/16/17 05:10 03/16/17 09:50 03/16/17 12:00 White Blood Count 11.4 TH/MM3 (4.0-11.0) Red Blood Count 4.67 MIL/MM3 (4.50-5.90) Hemoglobin 13.9 GM/DL (13.0-17.0) Hematocrit 42.4 % (39.0-51.0) Mean Corpuscular Volume 90.8 FL (80.0-100.0) Mean Corpuscular Hemoglobin 29.8 PG (27.0-34.0) Mean Corpuscular Hemoglobin Concent 32.8 % (32.0-36.0) Red Cell Distribution Width 16.6 % (11.6-17.2) Platelet Count 201 TH/MM3 (150-450) Mean Platelet Volume 9.3 FL (7.0-11.0) Neutrophils (%) (Auto) 85.6 % (16.0-70.0) Lymphocytes (%) (Auto) 5.8 % (9.0-44.0) Monocytes (%) (Auto) 7.9 % (0.0-8.0) Eosinophils (%) (Auto) 0.4 % (0.0-4.0) Basophils (%) (Auto) 0.3 % (0.0-2.0) Neutrophils # (Auto) 9.8 TH/MM3 (1.8-7.7) Lymphocytes # (Auto) 0.7 TH/MM3 (1.0-4.8) Monocytes # (Auto) 0.9 TH/MM3 (0-0.9) Eosinophils # (Auto) 0.0 TH/MM3 (0-0.4) Basophils # (Auto) 0.0 TH/MM3 (0-0.2) CBC Comment DIFF FINAL Differential Comment Activated Partial Thromboplast Time 39.4 SEC (24.3-30.1) 29.6 SEC (24.3-30.1) Blood Urea Nitrogen 25 MG/DL (7-18) Creatinine 0.92 MG/DL (0.60-1.30) Random Glucose 127 MG/DL (74-106) Total Protein 7.5 GM/DL (6.4-8.2) Albumin 3.6 GM/DL (3.4-5.0) Calcium Level 9.1 MG/DL (8.5-10.1) Alkaline Phosphatase 111 U/L (45-117) Aspartate Amino Transf (AST/SGOT) 78 U/L (15-37) Alanine Aminotransferase (ALT/SGPT) 52 U/L (12-78) Total Bilirubin 1.0 MG/DL (0.2-1.0) Sodium Level 135 MEQ/L (136-145) Potassium Level 3.9 MEQ/L (3.5-5.1) Chloride Level 98 MEQ/L (98-107) Carbon Dioxide Level 29.9 MEQ/L (21.0-32.0) Anion Gap 7 MEQ/L (5-15) Estimat Glomerular Filtration Rate 81 ML/MIN (>89) Troponin I 1.03 NG/ML (0.02-0.05) B-Type Natriuretic Peptide 622 PG/ML (0-100) Prothrombin Time 10.3 SEC (9.8-11.6) Prothromb Time International Ratio 1.0 RATIO Phosphorus Level 3.3 MG/DL (2.5-4.9) Result Diagram: 03/16/17 0510 03/16/17 0510 (1) NSTEMI (non-ST elevated myocardial infarction) Plan: 72 y/o M admitted with what appears to be acute on chronic heart failure and Afib with RVR. He reports being complaint with medications and cardiology follow ups. No cardiovascular records in [facility] chart however he does gives a clear history of CAD with several blockages bu no stents. Troponin elevation DDx demand ischemia vs ACS/NSTEMI worsening of CAD. PATIENT CHANGED HIS MIND REGARDING LHC. NOW HE WANTS IT DONE WELL DAPT. Recommendations: Medical manage Afib and NSTEMI 1. Strict I&O 2. Low salt diet 3. Lasix 40mg IV BID, Nitro gtt 4. Daily weights 5. Cont ASA, statin and ACEi 6. Get 2Dechocardiogram 7. Cont rate control with Cardizem drip wean as tolerated to maintain HR less than 110 8. Increase PO Cardizem 8. Telemetry monitoring 9. BiPAP 11. Heparin drip 12. Keep NPO after breakfast for C tomorrow in the afternoon (2) Pulmonary edema (3) Respiratory failure (4) Atrial fibrillation with RVR Problem Qualifiers (1) Pulmonary edema: Qualified Codes: J81.0 - Acute pulmonary edema (2) Respiratory failure: Qualified Codes: J96.00 - Acute respiratory failure, unspecified whether with hypoxia or hypercapnia Xiao Cerna Mar 16, 2017 12:29
[2017-03-16 12:52] LABS: HEMOGLOBIN A1a 1.7 %; HEMOGLOBIN A1b 1.9 %; HEMOGLOBIN Ao 83.2 %; HEMOGLOBIN LA1C 2.4 %; HEMOGLOBIN P3 4.1 %
--- NOTE | 2017-03-16 13:07 | RADRPT ---
EXAM DATE/TIME: 03/16/2017 12:12 [facility] COMPARISON: No previous studies available for comparison. INDICATIONS : Preop cardiac surgery. MEDICAL HISTORY : Hypercholesterolemia. Hypertension. Coronary artery disease. Afib. COPD. Pneumonia. Dyspnea. gOUT. SURGICAL HISTORY : Bilateral cataracts removed. Abdominal stent extending to bilateral legs. Cardiac cath. Blood transfu sions. ENCOUNTER: Initial ACUITY: 1 day PAIN SCORE: 4/10 LOCATION: Bilateral leg. TECHNIQUE: Venous ultrasound of the left and right leg was performed from the inguinal ligament to the proximal calf. Real-time, color Doppler and spectral tracing, compression and augmentation techniques were us ed. FINDINGS: RIGHT LEG: There is normal compressibility of the deep venous system from the inguinal region to the proximal ca lf. No echogenic clot is seen in the lumen of the common femoral, femoral, popliteal, and posterior tibial veins. There is a normal response of the venous system to proximal and distal augmentation an d respiration. LEFT LEG: There is normal compressibility of the deep venous system from the inguinal region to the proximal ca lf. No echogenic clot is seen in the lumen of the common femoral, femoral, popliteal, and posterior tibial veins. There is a normal response of the venous system to proximal and distal augmentation an d respiration. CONCLUSION: No DVT is identified within either lower extremity. Clarence Bhakta MD on March 16, 2017 at 13:04 Board Certified Radiologist. This report was verified electronically.
[2017-03-16] MEDS ORDERED: DILTIAZEM HCL 25 MG/5 ML VIAL IV ONE (13:15)
[2017-03-16] MEDS ORDERED: AMIODARONE INJ 150 MG in DEXTROSE 5% IN WATER 100ML INJ 100 ML IV ONE ×2 (13:22)
--- NOTE | 2017-03-16 13:34 | RADRPT ---
EXAM DATE/TIME: 03/16/2017 12:26 [facility] COMPARISON: No previous studies available for comparison. INDICATIONS : Preop cardiac surgery. MEDICAL HISTORY : Hypertension. Hypercholesterolemia. Coronary artery disease. Afib. COPD. Pneumonia. Dyspnea. gOUT. SURGICAL HISTORY : Bilateral cataracts removed. Abdominal stent extending to bilateral legs. Cardiac cath. Blood transfu sions. ENCOUNTER: Initial ACUITY: 1 day PAIN SCORE: 4/10 LOCATION: Bilateral leg. GREATER SAPHENOUS VEIN THIGH: PROXIMAL: Right 3 mm Left 4 mm MID: Right 3 mm Left 2 mm DISTAL: Right 2 mm Left 2 mm CALF: PROXIMAL: Right 1 mm Left 2 mm MID: Right Non-visualized Left 2 mm DISTAL: Right Non-visualized Left 1 mm FINDINGS: The venous system of the lower extremities are patent by color Doppler imaging. Measurements of the leg veins (in mm) are listed above. CONCLUSION: 1. Venous mapping as above Fabio Saunders MD on March 16, 2017 at 13:32 Board Certified Radiologist. This report was verified electronically.
[2017-03-16 13:48] LABS: BLOOD, URINE MOD (NEG); GLUCOSE,URINE NEG (NEG); HYALINE CAST, URINE 6 /lpf (RARE); KETONE, URINE NEG (NEG); MUCUS URINE FEW /lpf (OCC); NITRITE,URINE NEG (NEG); TRANSITIONAL EPI CELLS, URINE <1 /hpf; URINE COLOR YELLOW (YELLW/STRAW)
[2017-03-16 14:00] LABS: COMMENT (UR) CULT NOT INDICATED; CULTURE IF INDICATED CULT NOT INDICATED
[2017-03-16] MEDS: AMIODARONE INJ 450 MG in DEXTROSE 5% IN WATE(EXCEL) INJ 241 ML IV PRN ×4 (16:29→23:27)
[2017-03-16 17:52] LABS: APTT (PATIENT) 39.9 SEC (24.3-30.1)
[2017-03-16 18:38] LABS: APTT (PATIENT) 45.7 SEC (24.3-30.1)
[2017-03-16] MEDS ORDERED: IOHEXOL 350 MG/ML 10 ML VIAL (for RAD DIAG) IVCONTRAST ONE (19:14)
--- NOTE | 2017-03-16 19:30 | RADRPT ---
EXAM DATE/TIME: 03/16/2017 18:40 [facility] COMPARISON: No previous studies available for comparison. INDICATIONS : Heart surgery pre op ,history of aortic aneurysm IV CONTRAST: 50 cc Omnipaque 350 (iohexol) IV RADIATION DOSE: 7.28 CTDIvol (mGy) MEDICAL HISTORY : Cardiovascular disease. Hypertension. Chronic obstructive pulmonary disease. SURGICAL HISTORY : Coronary artery stent. ENCOUNTER: Initial ACUITY: 1 day PAIN SCALE: 0/10 LOCATION: chest TECHNIQUE: Volumetric scanning of the chest was performed. Using automated exposure control and adjustment of t he mA and/or kV according to patient size, radiation dose was kept as low as reasonably achievable to obtain optimal diagnostic quality images. DICOM format image data is available electronically for review and comparison. Follow-up recommendations for detected pulmonary nodules are based at a minimum on nodule size and pa tient risk factors according to Fleischner Society Guidelines. FINDINGS: The heart is enlarged. Extensive coronary artery calcifications are noted. There is mild aneurysmal d ilatation of the aortic arch measuring 3.8 cm in greatest dimension. Small bilateral pleural effusion s are noted. Bibasilar atelectatic changes are noted. Underlying scattered emphysematous changes are noted bilaterally. No focal alveolar consolidation is noted to suggest pneumonia. No mediastinal, hil ar or axillary lymphadenopathy is noted. Degenerative changes and scoliosis of the thoracic spine are noted. Multiple hepatic cysts are noted with the largest located in the left lobe measuring 9.4 cm. There is a tiny calcification within the expected region of the extrahepatic biliary system. It is di fficult to determine if this represents an obstructing calculus or vascular calcification. Correlatio n with alkaline phosphatase, bilirubin and physical examination to rule out John's sign is suggeste d. CONCLUSION: 1. Cardiomegaly and extensive coronary artery calcifications. 2. Mild aneurysmal dilatation of the aortic arch measuring 3.8 cm in greatest dimension. 3. Small bilateral pleural effusions. 4. Bibasilar atelectatic changes. 5. Underlying scattered emphysematous changes bilaterally. 6. Degenerative changes and scoliosis of the thoracic spine. 7. Multiple hepatic cysts. 8. Tiny calcification within the expected region of the extrahepatic biliary system. It is difficult to determine if this represents an obstructing calculus or vascular calcification. Correlation with a lkaline phosphatase, bilirubin and physical examination to rule out John's sign is suggested. Zac Aleman MD on March 16, 2017 at 19:17 Board Certified Radiologist. This report was verified electronically.
--- NOTE | 2017-03-16 20:19 | RADRPT ---
EXAM DATE/TIME: 03/16/2017 18:59 [facility] COMPARISON: No previous studies available for comparison. INDICATIONS : Occlusion IV CONTRAST: 60 cc Omnipaque 350 (iohexol) IV RADIATION DOSE: 28.62 CTDIvol (mGy) MEDICAL HISTORY : Cardiovascular disease. Hypertension. Chronic obstructive pulmonary disease. SURGICAL HISTORY : Coronary artery stent. ENCOUNTER: Initial ACUITY: 1 day PAIN SCALE: 0/10 LOCATION: CTA neck Elevated flow velocities and ICA/CCA ratios have been found to correlate with increased degrees of vessel stenosis, calculated as percentage of diameter relative to a normal segment of distal ICA/CCA. TECHNIQUE: Volumetric scanning was performed using a multirow detector CT scanner. The data was post processed with a variety of visualization algorithms including full-volume maximum intensity projection, multip lanar sliding thin-slab reformation, curved-planar reformation, and surface-rendering techniques. Us ing automated exposure control and adjustment of the mA and/or kV according to patient size, radiatio n dose was kept as low as reasonably achievable to obtain optimal diagnostic quality images. DICOM f ormat image data is available electronically for review and comparison. FINDINGS: AORTIC ARCH: There is a three-vessel origin of the great vessels from the aorta. No evidence of ostial narrowing. RIGHT CAROTID: The common carotid artery is intact. The carotid bulb has a normal configuration without ulceration o r narrowing. Mild to moderate stenoses disease (approximately 50%) are noted within the right proxima l internal carotid secondary to partially calcified atherosclerotic plaques. The external carotid art omi is intact. LEFT CAROTID: The common carotid artery is intact. The carotid bulb has a normal configuration without ulceration or narrowing. There is occlusion of the left proximal internal carotid. The external carotid artery i s intact. VERTEBRALS: The vertebral arteries have a symmetric diameter. No stenotic lesions are seen. CONCLUSION: 1. Occlusion of the left proximal internal carotid artery. 2. Mild to moderate stenosis involving the right proximal internal carotid (approximately 50% ). Zac Almean MD on March 16, 2017 at 20:12 Board Certified Radiologist. This report was verified electronically.
[2017-03-16] MEDS ORDERED: HEPARIN SODIUM - SQ 10,000 UNITS/ML VIAL SQ SCH (21:00)
[2017-03-17] VITALS (20 sets, daily range): BP systolic 116–139; BP diastolic 61–92; PULSE 78–147; RESP 22–43; TEMP 97–98.5; O2SAT 91–98
[2017-03-17 01:23] LABS: APTT (PATIENT) 41.5 SEC (24.3-30.1)
[2017-03-17] MEDS: RESP: IPRATROPIUM 0.5 MG/2.5 ML NEB NEB SCH ×5 (03:26→19:46)
[2017-03-17] MEDS: METOPROLOL TARTRATE 50 MG TAB PO SCH ×3 (04:58→20:18)
[2017-03-17 07:01] LABS: BASOPHIL # 0.1 TH/MM3 (0-0.2); BASOPHIL % 0.7 % (0.0-2.0); EOSINOPHIL # 0.1 TH/MM3 (0-0.4); HEMO FLAGS DIFF FINAL; LYMPH % 6.2 % (9.0-44.0); LYMPHOCYTE # 0.7 TH/MM3 (1.0-4.8); MEAN CELL VOLUME 91.3 FL (80.0-100.0); MEAN CORPUSCULAR HGB CONC 32.9 % (32.0-36.0); MONO % 7.8 % (0.0-8.0); NEUT % 84.3 % (16.0-70.0); PLATELET COUNT 189 TH/MM3 (150-450); RED BLOOD COUNT 4.16 MIL/MM3 (4.50-5.90); RED CELL DISTRIBUTION WIDTH 16.9 % (11.6-17.2); WHITE BLOOD COUNT 11.9 TH/MM3 (4.0-11.0)
[2017-03-17 07:10] LABS: APTT (PATIENT) 53.9 SEC (24.3-30.1)
[2017-03-17 07:31] LABS: ALT (GPT) 35 U/L (12-78); ANION GAP 6 MEQ/L (5-15); AST (GOT) 32 U/L (15-37); BICARBONATE 31.8 MEQ/L (21.0-32.0); BLOOD UREA NITROGEN 30 MG/DL (7-18); CHLORIDE 99 MEQ/L (98-107); GLOMERULAR FILTRATION RATE 73 ML/MIN (>89); MAGNESIUM 2.3 MG/DL (1.5-2.5); SODIUM (NA) 137 MEQ/L (136-145)
[2017-03-17 07:33] LABS: ALKALINE PHOSPHATASE 99 U/L (45-117); TOTAL BILIRUBIN ADULT 0.8 MG/DL (0.2-1.0)
[2017-03-17] MEDS ORDERED: DILTIAZEM HCL 25 MG/5 ML VIAL IV ONE (07:45)
[2017-03-17] MEDS: DILTIAZEM INJ 125 MG in SODIUM CHLORIDE 0.9% INJ 100 ML IV PRN ×2 (07:56→16:47)
[2017-03-17] MEDS: INSULIN ASPART SUPPLEMENTAL SCALE SQ SCH ×4 (08:00→19:29)
[2017-03-17] MEDS: CHLORHEXIDINE 0.12% (ORAL KIT) 15 ML CUP MT SCH ×2 (08:00→19:28)
[2017-03-17] MEDS ORDERED: DIGOXIN 0.5 MG/2 ML VIAL IV PUSH ONE (08:15)
--- NOTE | 2017-03-17 08:18 | MB ---
cc: YOLY MARIE DATE OF CONSULTATION 03/16/2017 DATE OF 1945, a 72-year-old male. HISTORY He is down here visiting with family, lives in the [place] area. Had not been feeling well for about the past month. Has a longstanding history of atrial fibrillation and presented with atrial fibrillation rapid ventricular response. Heart rates in the 180s. He was given adenosine, subsequently IV Cardizem which seemed to improve his heart rate. He also had some respiratory distress, some hypoxemia and they placed BiPap. He denied chest pain. He has been worked up by Dr. Christian at [facility] and also seen a Dr. Bee for possible evaluation for EP study. They wanted to put him on blood thinners and cardioversion but he declined because he says he has had problems with blood thinners in the past. The patient's troponin came back at 1.0 and his BNP at 622. He underwent cardiac cath by Dr. Deyvi Meza which showed 100% occlusion in the mid segment of the RCA. The LAD had a proximal lesion of 90%, diffusely disease and the first diagonal was 100% occluded. The left circ had a 90% lesion in the distal segment and the obtuse marginal which was small was 100% occluded. He also had an echocardiogram which showed ejection fraction of 25-35%. Moderate mitral regurgitation, moderate to severe aortic stenosis. Trace tricuspid valve regurgitation. We were consulted to evaluate for coronary artery bypass grafting and aortic valve replacement. PAST MEDICAL HISTORY The patient's past medical history includes: 1. Atrial fibrillation. 2. Hyperlipidemia. 3. COPD. 4. Gastroesophageal reflux disease. 5. Gout. 6. Hypertension. 7. Peripheral arterial disease. 8. He has got abdominal stent apparently had some type of an aneurysm in his aorta. 9. He has got stents in the left femoral artery. ALLERGIES HE HAS ALLERGY TO PLAVIX AND OXYCODONE. MEDICATIONS Home meds include: 1. Albuterol. 2. Lovastatin. 3. Metoprolol. 4. Diltiazem. 5. Lisinopril. 6. Aspirin. 7. Indocin. 8. Potassium. 9. Lasix. 10. Omeprazole. 11. Allopurinol. FAMILY HISTORY Mother from old age. Father from cancer. SOCIAL HISTORY The patient . Smoked four packs for about 50 years. He quit in 1999. Has four children. 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 REVIEW OF SYSTEMS GENERAL: No night sweats, fever, heat and cold intolerance. SKIN: No psoriasis, itching or hives. HEENT: No blurred vision, hearing loss. RESPIRATORY: Positive for shortness of breath. CARDIOVASCULAR: As above in history of present illness. GASTROINTESTINAL: No diarrhea, vomiting. GENITOURINARY: No burning, frequency, urgency. CENTRAL NERVOUS SYSTEM: No history of TIA, CVA, seizure disorder. ENDOCRINE: No hypothyroidism or diabetes. PHYSICAL EXAMINATION VITAL SIGNS: On exam blood pressure 110/60, heart rate of 100, afebrile. O2 sat 95%. GENERAL: Patient is awake, alert, no acute distress. HEENT: Head is normocephalic, atraumatic. Pupils equal and reactive. Oral mucosa pink, moist. NECK: Supple. No JVD. Soft bruit on the right carotid artery. CARDIOVASCULAR: Heart sounds S1-S2, irregular rate and rhythm. Grade 2-3/6 systolic murmur. LUNGS: Diminished in the bases, otherwise clear to auscultation. No wheezes, rales or rhonchi. ABDOMEN: The abdomen is soft, nontender. No masses or organomegaly. EXTREMITIES: Reveal no cyanosis, clubbing or edema. LABORATORY FINDINGS Shows hemoglobin 13, hematocrit of 42, white cell count of 11, platelet count 201. Sodium 135, potassium 3.9, BUN of 25, creatinine 0.92. Hemoglobin A1c 6.2. INR 1.0. Urinalysis is unremarkable. Toxicology screen is negative. MRSA is nondetected. Hemoccult stool is negative. IMAGING Carotid ultrasound did show bilateral bifurcation arteriosclerotic disease, hemodynamically significant stenosis of the right internal carotid and occlusion of the left internal carotid. CTA of the neck is pending. CT of the chest thorax pending in regards to his aortic aneurysm. In the meantime he has further workup still pending. The cardiac films have been evaluated by Dr. Yoly Marie. If everything is acceptable and stable and after the PFTs been reviewed, we will plan for possible surgery on ThursdayMarch 18. DICTATED BY: BABAK Sotomayor MD RUSSELL Schafer/PARMINDER Metcalf: 03/16/2017/4:09 PM /8:13 AM
[2017-03-17] MEDS: SODIUM CHLORIDE 0.9% FLUSH 10 ML FLUSH IV FLUSH SCH ×4 (09:00→19:29)
[2017-03-17] MEDS: POTASSIUM CHLORIDE 20 MEQ CONTROLLED RELEASE TAB PO SCH ×2 (09:18→20:18)
[2017-03-17] MEDS: ALLOPURINOL 300 MG TAB PO SCH (09:18)
[2017-03-17] MEDS: DILTIAZEM-CD 300 MG CAP ER PO SCH (09:18)
[2017-03-17] MEDS: FAMOTIDINE 20 MG/2 ML VIAL IV PUSH SCH ×2 (09:18→20:18)
[2017-03-17] MEDS: ASPIRIN 81 MG CHEW TAB CHEW SCH (09:18)
[2017-03-17] MEDS: FUROSEMIDE 40 MG/4 ML VIAL IV PUSH SCH ×2 (09:19→17:40)
--- NOTE | 2017-03-17 09:23 | RSPPFT ---
DATE OF PROCEDURE: 03/16/17 COMMENTS: Spirometry shows FVC of 1.9 at 43% of predicted, FEV1 of 1.0 at 30%, FEV1/FVC ratio is decreased. Flow is decreased at FEF 25, FEF 50, FEF 75 and FEF 25-75. Flow volume loop indicates an obstructive pattern. IMPRESSION: 1. Severe obstructive lung disease. 2. Post-bronchodilator study was not performed.
--- NOTE | 2017-03-17 13:57 | HHI.CCPN ---
Subjective Remarks/Hospital Course 03/13: 72-year-old male with a medical history significant for atrial fibrillation, coronary artery disease, peripheral vascular disease who developed progressive shortness of breath about 1-1/2 hours prior to his arrival to the ER. He reportedly was visiting the area from [place]. EMS was called when he started having shortness of breath and was noted to have heart rate in the 180s. He was given 2 doses of Indocin and subsequently 20 mg Cardizem IV with which his heart rate temporarily came down however he was noted to be in A. fib with RVR on arrival in the ER. Patient was initiated on BiPAP for respiratory distress and hypoxia and was initiated on a Cardizem drip. Dr. Meza from cardiology was consulted by ER physician in view of pulmonary edema and slightly elevated troponin and A. fib with RVR. Patient was accepted for admission by critical care medicine service. I ordered Lopressor 5 mg IV stat as patient was on Cardizem 15 mg/h and still tachycardic with ventricular rate 120 to 130s. Following administration of Lopressor his heart rate came down to the 90s while on Cardizem drip. When I evaluated the patient in the ER he was on BiPAP with full facemask. He stated that since receiving the Lopressor he was feeling better however still very short of breath. He denied any chest pain. 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 He has previously had a cardiac catheterization way back in 2008 and was told he had an obstruction. He has also had a stress test in 2014 which was abnormal. Patient states that he cannot take blood thinners due to history of GI bleeding. He was advised to have a cardiac catheterization by his log inspector previously. He denies any fevers or chills. Denies any chest pain nausea or vomiting. Denies any melena or rectal bleeding currently. 03/14: Resting in bed comfortably. On nasal cannula. Remains on Cardizem drip for A. fib with RVR. Troponin trending down. 03/15: Resting comfortably on 2 L nasal cannula. Diuresing well. Off Cardizem drip however still in A. fib with runs of rapid rate. Remains on heparin drip. 03/16 Patient s/p cardiac cath yesterday showed 3VD, mod. . CTS consult for CABG and AVR. 03/17: Remains in A. fib with RVR. Resuming Cardizem drip following Cardizem 20 mg IV 2 doses for A. fib with RVR this morning. Loaded with digoxin 0.5 mg IV stat earlier and we'll continue oral digoxin starting tomorrow. Awaiting CABG/ AVR. Objective Vital Signs Date Time Temp Pulse Resp B/P (MAP) Pulse Ox O2 Delivery O2 Flow Rate FiO2 03/17/17 13:00 119 03/17/17 12:00 98.3 35 139/79 (99) 91 03/17/17 09:35 Nasal Cannula 5.00 03/14/17 00:39 45 Intake and Output 03/17/17 03/17/17 03/18/17 08:00 16:00 00:00 Intake Total 400 ml Output Total 700 ml Balance -300 ml Result Diagram: 03/17/17 0640 03/17/17 0640 Other Results Microbiology Date/Time Source Procedure Growth Status 03/14/17 17:30 Stool Stool Stool Occult Blood (FIONA) - Final HEMOCCULT NEGATIVE Complete Imaging Last Impressions Chest X-Ray 03/16/17 0600 Signed Impressions: Service Date/Time: Thursday, March 16, 2017 04:58 - CONCLUSION: Stable appearance with mild streaky opacity of the lung bases which could indicate atelectasis or scarring. Infiltrate is less likely. Matthew Preston MD Carotid Artery Ultrasound 03/15/17 0000 Signed Impressions: Service Date/Time: Wednesday, March 15, 2017 20:26 - CONCLUSION: Bilateral bifurcation atherosclerotic disease. There is hemodynamically significant stenosis of the right internal carotid artery and occlusion of the left internal carotid artery. Clarence Good MD Objective Remarks Narrative GENERAL: Well-nourished, well-developed patient, elderly female, laying in bed in no acute distress SKIN: Warm and dry HEAD: Normocephalic and atraumatic. EYES: No injection or drainage. ENT: No nasal drainage noted. NECK: Supple, trachea midline. CARDIOVASCULAR: irregular rate and rhythm, Tachycardic, systolic murmur present RESPIRATORY: On nasal cannula, good air entry bilaterally, scattered rhonchi and bibasilar crackles, no wheezing. GASTROINTESTINAL: Abdomen soft, nondistended. EXTREMITIES: 2+ pitting edema bilateral legs, mid tibia. NEUROLOGICAL: Awake. moves all extremities and sensory grossly within normal limits. Normal speech. A/P Assessment and Plan 72-year-old male with: Acute respiratory failure A. fib with RVR Non-ST elevation ID CHF Triple vessel CAD Moderate to severe aortic stenosis COPD HTN Hyperlipidemia Gout Plan: Neuro: Monitor neuro status. Avoid sedatives CV: Monitor HR and BP keep MAP>65mmHg s/p cardiac cath 03/15 showed 3VD, mod. , CTS consulted and patient is scheduled for CABG and AVR. Cards is following- Dr. Meza. Remains on Heparin/ Amiodarone drip. Restarted Cardizem drip for A. fib with RVR. Given digoxin 0.5 mg IV 1 on 03/17 followed by digoxin 0.125 mg by mouth daily starting 03/18 for better rate control. On Cardizem CD 300mg daily, Lopressor 50mg Q8, Lisinopril on hold, ASA 81mg daily. Diuresed with Lasix Pulm: Continue with oxygen keep sat >92% Bronchodilators GI/liver: Heart healthy diet Renal/:Monitor renal function, electrolytes replacement as needed, On Lasix 40mg BID, KCL 20meq BID Heme:Monitor CBC Endocrine: SSI for glycemic control if needed. Prophylaxis: SCDs.Pepcid. Continue heparin drip. Level 3 . Artemio Skinner MD Mar 17, 2017 13:57
[2017-03-17] MEDS: AMIODARONE INJ 450 MG in DEXTROSE 5% IN WATE(EXCEL) INJ 241 ML IV PRN ×2 (15:00)
[2017-03-17] MEDS: HEPARIN-D5W 25,000 U/250 ML 250 ML IV PRN (15:02)
--- NOTE | 2017-03-17 16:08 | PD.CAR.PN ---
CVT Progress Note Subjective/Hospital Course: 72/ male, visiting from [place] area had not been feeling well for about the past month. Has a longstanding history of atrial fibrillation and presented with atrial fibrillation rapid ventricular response. Heart rates in the 180s. He was given adenosine, subsequently IV Cardizem which seemed to improve his heart rate. He also had some respiratory distress, some hypoxemia and they placed BiPap. He denied chest pain. He has been worked up by Dr. Christian at [facility] and also seen a Dr. Bee for possible evaluation for EP study. They wanted to put him on blood thinners and cardioversion but he declined because he says he has had problems with blood thinners in the past. The patient's troponin came back at 1.0 and his BNP at 622. He underwent cardiac cath by Dr. Deyvi Meza which showed 100% occlusion in the mid segment of the RCA. The LAD had a proximal lesion of 90%, diffusely disease and the first diagonal was 100% occluded. The left circ had a 90% lesion in the distal segment and the obtuse marginal which was small was 100% occluded. He also had an echocardiogram which showed ejection fraction of 25-35%. Moderate mitral regurgitation, moderate to severe aortic stenosis. Trace tricuspid valve regurgitation. We were consulted to evaluate for coronary artery bypass grafting and aortic valve replacement. PAST MEDICAL HISTORY: Atrial fibrillation, Hyperlipidemia, COPD, Gastroesophageal reflux disease, Gout, Hypertension, Peripheral arterial disease, He has got abdominal stent apparently had some type of an aneurysm in his aorta, stents in the left femoral artery. 03/17 remains in afib rate now controlled, started on digoxin had mild pain earlier when HR was elevated for surgery in am Objective: Vital Signs Date Time Temp Pulse Resp B/P (MAP) Pulse Ox O2 Delivery O2 Flow Rate FiO2 03/17/17 15:45 79 118/70 03/17/17 15:00 98 108/57 03/17/17 14:59 100 108/57 03/17/17 14:00 93 03/17/17 13:30 109 138/61 03/17/17 13:00 119 03/17/17 12:00 98.3 106 35 139/79 (99) 91 03/17/17 12:00 106 03/17/17 11:00 117 03/17/17 10:00 115 03/17/17 09:35 95 Nasal Cannula 5.00 03/17/17 09:00 128 03/17/17 09:00 128 116/55 03/17/17 08:30 115 120/83 03/17/17 08:00 98.5 119 27 126/92 (103) 92 03/17/17 08:00 119 03/17/17 07:56 123 117/89 03/17/17 07:00 147 03/17/17 06:00 126 03/17/17 04:00 97.6 126 22 119/71 (87) 95 03/17/17 04:00 126 03/17/17 02:00 103 03/17/17 00:00 98.0 103 23 116/61 (79) 95 03/17/17 00:00 103 03/16/17 23:27 112 108/82 03/16/17 22:00 107 03/16/17 20:34 98 Nasal Cannula 3.00 03/16/17 20:00 121 03/16/17 20:00 98.3 121 25 125/85 (98) 96 03/16/17 20:00 98.3 121 34 123/85 (98) 96 03/16/17 18:01 105 03/16/17 18:00 104 03/16/17 16:29 131 110/60 Labs: Laboratory Tests Test 03/17/17 06:40 White Blood Count 11.9 TH/MM3 (4.0-11.0) Red Blood Count 4.16 MIL/MM3 (4.50-5.90) Hemoglobin 12.5 GM/DL (13.0-17.0) Hematocrit 38.0 % (39.0-51.0) Mean Corpuscular Volume 91.3 FL (80.0-100.0) Mean Corpuscular Hemoglobin 30.0 PG (27.0-34.0) Mean Corpuscular Hemoglobin Concent 32.9 % (32.0-36.0) Red Cell Distribution Width 16.9 % (11.6-17.2) Platelet Count 189 TH/MM3 (150-450) Mean Platelet Volume 9.3 FL (7.0-11.0) Neutrophils (%) (Auto) 84.3 % (16.0-70.0) Lymphocytes (%) (Auto) 6.2 % (9.0-44.0) Monocytes (%) (Auto) 7.8 % (0.0-8.0) Eosinophils (%) (Auto) 1.0 % (0.0-4.0) Basophils (%) (Auto) 0.7 % (0.0-2.0) Neutrophils # (Auto) 10.0 TH/MM3 (1.8-7.7) Lymphocytes # (Auto) 0.7 TH/MM3 (1.0-4.8) Monocytes # (Auto) 0.9 TH/MM3 (0-0.9) Eosinophils # (Auto) 0.1 TH/MM3 (0-0.4) Basophils # (Auto) 0.1 TH/MM3 (0-0.2) CBC Comment DIFF FINAL Differential Comment Activated Partial Thromboplast Time 53.9 SEC (24.3-30.1) Blood Urea Nitrogen 30 MG/DL (7-18) Creatinine 1.00 MG/DL (0.60-1.30) Random Glucose 114 MG/DL (74-106) Total Protein 6.8 GM/DL (6.4-8.2) Albumin 3.1 GM/DL (3.4-5.0) Calcium Level 9.2 MG/DL (8.5-10.1) Phosphorus Level 3.2 MG/DL (2.5-4.9) Magnesium Level 2.3 MG/DL (1.5-2.5) Alkaline Phosphatase 99 U/L (45-117) Aspartate Amino Transf (AST/SGOT) 32 U/L (15-37) Alanine Aminotransferase (ALT/SGPT) 35 U/L (12-78) Total Bilirubin 0.8 MG/DL (0.2-1.0) Sodium Level 137 MEQ/L (136-145) Potassium Level 4.0 MEQ/L (3.5-5.1) Chloride Level 99 MEQ/L (98-107) Carbon Dioxide Level 31.8 MEQ/L (21.0-32.0) Anion Gap 6 MEQ/L (5-15) Estimat Glomerular Filtration Rate 73 ML/MIN (>89) Result Diagram: 03/17/1740 03/17/17 0640 Telemetry: afib (1) NSTEMI (non-ST elevated myocardial infarction) Plan: 72 y/o M admitted with what appears to be acute on chronic heart failure and Afib with RVR. He reports being complaint with medications and cardiology follow ups. No cardiovascular records in [facility] chart however he does gives a clear history of CAD with several blockages bu no stents. Troponin elevation DDx demand ischemia vs ACS/NSTEMI worsening of CAD. PATIENT CHANGED HIS MIND REGARDING LHC. NOW HE WANTS IT DONE WELL DAPT. Recommendations: Medical manage Afib and NSTEMI 1. Strict I&O 2. Low salt diet 3. Lasix 40mg IV BID, Nitro gtt 4. Daily weights 5. Cont ASA, statin and ACEi 6. Get 2Dechocardiogram 7. Cont rate control with Cardizem drip wean as tolerated to maintain HR less than 110 8. Increase PO Cardizem 8. Telemetry monitoring 9. BiPAP 11. Heparin drip 12. Keep NPO after breakfast for LHC tomorrow in the afternoon (2) Pulmonary edema (3) Respiratory failure (4) Atrial fibrillation with RVR Problem Qualifiers (1) Pulmonary edema: Qualified Codes: J81.0 - Acute pulmonary edema (2) Respiratory failure: Qualified Codes: J96.00 - Acute respiratory failure, unspecified whether with hypoxia or hypercapnia Xiao Cerna Mar 17, 2017 16:08
[2017-03-18] VITALS (14 sets, daily range): BP systolic 95–158; BP diastolic 45–81; PULSE 75–96; RESP 13–22; TEMP 96.4–98.3; O2SAT 94–99
[2017-03-18] MEDS: CHLORHEXIDINE GLUCONATE 2 % 1 PACK (2 CLOTHS) TOP SCH (01:57)
[2017-03-18] MEDS: RESP: IPRATROPIUM 0.5 MG/2.5 ML NEB NEB SCH ×4 (03:22→12:00)
[2017-03-18] MEDS: METOPROLOL TARTRATE 50 MG TAB PO SCH (04:56)
[2017-03-18] MEDS: AMIODARONE INJ 450 MG in DEXTROSE 5% IN WATE(EXCEL) INJ 241 ML IV PRN ×4 (04:57→21:32)
[2017-03-18 05:27] LABS: APTT (PATIENT) 50.6 SEC (24.3-30.1)
[2017-03-18] MEDS ORDERED: HEPARIN SODIUM - SQ 10,000 UNITS/ML VIAL ONE ×2 (07:43→12:23)
[2017-03-18] MEDS ORDERED: methylPREDNISolone SOD SUCC 125 MG/2 ML VIAL ONE (07:43)
[2017-03-18] MEDS ORDERED: ceFAZolin 2 GM PREMIX 50 ML ONE (07:43)
[2017-03-18] MEDS ORDERED: VANCOMYCIN HCL 1000 MG VIAL ONE (07:43)
[2017-03-18] MEDS: CHLORHEXIDINE 0.12% (ORAL KIT) 15 ML CUP MT SCH ×2 (08:00→20:00)
[2017-03-18] MEDS: INSULIN ASPART SUPPLEMENTAL SCALE SQ SCH ×2 (08:00→12:00)
[2017-03-18] MEDS ORDERED: HEPARIN SODIUM - IV 10,000 UNITS/10 ML VIAL ONE (08:41)
[2017-03-18] MEDS ORDERED: CUSTODIOL HTK IRR SOLN 3,000 ML ONE (08:41)
[2017-03-18] MEDS ORDERED: POTASSIUM CHLORIDE 20 MEQ/10 ML VIAL ONE (08:41)
[2017-03-18] MEDS ORDERED: ALBUMIN 25% INJ 50 ML IV ONE (08:42)
[2017-03-18] MEDS ORDERED: CALCIUM CHLORIDE 10% SOLN 1 GRAM/10 ML SYR ONE (08:42)
[2017-03-18] MEDS ORDERED: MANNITOL INJ 100 ML ONE (08:42)
[2017-03-18] MEDS ORDERED: SODIUM BICARBONATE 8.4% INJ 150 ML ONE (08:43)
[2017-03-18] MEDS: POTASSIUM CHLORIDE 20 MEQ CONTROLLED RELEASE TAB PO SCH ×2 (09:00→22:01)
[2017-03-18] MEDS: SODIUM CHLORIDE 0.9% FLUSH 10 ML FLUSH IV FLUSH SCH ×3 (09:00→21:00)
[2017-03-18] MEDS: DIGOXIN 0.125 MG TAB PO SCH (09:00)
[2017-03-18] MEDS: ASPIRIN 81 MG CHEW TAB CHEW SCH (09:00)
[2017-03-18] MEDS: ALLOPURINOL 300 MG TAB PO SCH (09:00)
[2017-03-18] MEDS ORDERED: ceFAZolin INJ 1,000 MG VIAL ONE (12:33)
[2017-03-18] MEDS ORDERED: DEXMEDETOMIDINE INJ 200 MCG in SODIUM CHLORIDE 0.9% INJ 50 ML IV PRN (13:55)
[2017-03-18] MEDS ORDERED: DEXMEDETOMIDINE HCL 200 MCG/2 ML VIAL ONE (13:55)
[2017-03-18] MEDS ORDERED: RESP: ALBUTEROL 2.5 MG/IPRATROPIUM 0.5 MG NEB (PRN) NEB (14:00)
--- NOTE | 2017-03-18 14:21 | PD.OP ---
cc: Deyvi Osullivan MD; Yoly Marie MD Operative Report Date of Surgery: Mar 18, 2017 Preoperative Diagnosis: (1) CAD (coronary artery disease) (2) Systolic and diastolic CHF, acute on chronic (3) NSTEMI (non-ST elevated myocardial infarction) (4) Atrial fibrillation with RVR Postoperative Diagnosis: same Procedure: CABG x 2 DE JESUS to LAD - good SVG to PLB - good distal target EVH AVR with a 25 Intuity tissue valve ABEBE Resection left atrial appendage Anesthesia: Dr. Lora Surgeon: Yoly Marie Lead Php Developer(s): LUI Bailey Operation and Findings: Cross-clamp time 83 minutes Cardiopulmonary bypass time 112 minutes Drains 36 [place] mediastinum and 32 [place] left pleural chest tubes Findings: The patient had a moderately calcified trileaflet aortic valve. The saphenous vein was a fair to poor conduit. At the conclusion of the procedure, intraoperative ABEBE showed a well-seated aortic valve with no perivalvular leaks. Left ventricular function was at ~35%. Disposition: The patient was transferred to the CVICU in stable, but guarded condition. Operation in detail: After adequate general anesthesia, the patient was prepped and draped in the usual manner. A median sternotomy was performed and electrocautery was used to obtain hemostasis. Left internal mammary artery was procured as a pedicle from the 7th ribs to the 1st rib in the usual manner. Simultaneously, the left greater saphenous vein was procured using a minimally invasive technique. The vein was prepared for anastomosis and the leg wound was irrigated and closed in 2 layers. The pericardium was opened and the distal mammary artery was instrumented for anastomosis after adequate heparinization for cardiopulmonary bypass. The heart was instrumented for cardiopulmonary bypass in the usual manner. Antegrade Custodiol cardioplegia were used. The left ventricle was vented through the right superior pulmonary vein. The patient was placed on cardiopulmonary bypass and target vessels were identified. The left atrial appendage was resected using a surgical stapling device. An aortic cross-clamp was applied and the heart was arrest is using cold blood Custodiol cardioplegia. After adequate arrest, the left posterolateral branch artery was opened with a [place] blade and found to be a 1.5 millimeter good target. The saphenous vein was approximated to the artery using a running 7-0 Prolene suture. The vein was measured for length and orientation and suspended from the pericardium.The distal LAD was then opened with a [place] blade and found to be a 1-1/2 millimeters good target. The left internal mammary artery was approximated to the LAD using a running 7 0 Prolene suture. The pedicle was tacked to the epicardium using interrupted 5 0 silk suture. The aorta was vented and opened above the sinotubular ridge. The valve was found to be trileaflet. There was moderate calcification. Aortic valve was excised sharply and the annulus was decalcified using rongeurs. The LV was copiously irrigated with saline. The annulus was sized to a 25 Intuity bioprosthetic valve which was seated using 3 interrupted 2-0 Tycron sutures. After seating the valve, it was deployed at 5 ALE. The aorta was repaired in 2 layers using running 4-0 Prolene suture. The patient was placed in steep Trendelenburg position. The aorta was vented and the proximal anastomosis to the PLB graft was performed using a running 5-0 Prolene suture after creating an aortotomy with a 5 millimeter punch. The aorta and left ventricle were vented and the aortic cross-clamp was removed for a total cross-clamp time of 83 minutes. The heart resumed a bradycardic rhythm which eventually converted to a sinus rhythm after several minutes. The heart was filled allowed to eject. The aortic valve replacement was then assessed by intraoperative ABEBE. The valve was found to be well seated with no perivalvular leak. Left ventricular function was noted to be 35%. The patient was weaned from cardiopulmonary bypass for total bypass run of 112 minutes. Protamine was administered to reverse the heparin and all cannulae were removed without incident. A 36 [place] mediastinal/ 32 [place] left pleural chest tubes were positioned and each was secured to the skin with a 0 silk suture. The operative field was then examined again for hemostasis which was obtained using electrocautery. The wound was then closed in layers by approximating the sternal tables with interrupted number 6 stainless steel wires following which the presternal fashion was approximately around a 1. PDS suture. The wound was copiously irrigated. The subcutaneous tissue was approximated using a running 2- 0 Vicryl suture and the skin was approximated with running 4-0 Monocryl subcuticular stitch. All sponge and instrument counts were correct at the close of the procedure and the patient was transported the CVICU in stable, but guarded condition. Yoly Marie M.D., [place]., FRosalesS. Yoly Marie MD Mar 18, 2017 14:21
--- NOTE | 2017-03-18 14:22 | HHI.FF ---
Face to Face Verification Diagnosis: (1) S/P CABG (coronary artery bypass graft) (2) S/P AVR (aortic valve replacement) (3) Atrial fibrillation with RVR (4) NSTEMI (non-ST elevated myocardial infarction) (5) Systolic and diastolic CHF, acute on chronic Physical Therapy Order: Evaluate and Treat Home Health Nursing Order: Signs/symptoms of disease process CHF education Medication education-adverse effect Wound care and dressing changes Nursing assessment with vital signs Instructions: Heart and Vascular Surgery patients *Special attention to sternal dressing Mandatory frequency Assess and evaluation, 4 days in a row The next week 3X week 2 times a week for 4 weeks 1 time a week for 5 weeks Schedule Heart and Vascular patients for full 60 day certification period Initial visit Review Open Heart Surgery Discharge Instructions (Sternal precautions, Activity, Elastic hose, Incision care, Driving, Incentive spirometry, Smoking, Jewell, Work and other) Need Betadine to paint incision Medication reconciliation Importance of follow up care/ check on appointments Make calendar record temperature daily When to call [facility] at Home nurse, review instructions, phone list Incentive Spirometry, demonstration Visit 1- Begin discharge instruction for patient family and/ or caregiver using teach back method- Signs and symptoms of infection Disease characteristics Medicines and side effects Foods and nutrition/ appetite Infection control/ hand washing/ hygiene Visit 2- Continue teaching Discharge instructions- include additional information on smoking cessation , sternal dressing (sternal vac) Visit 3- Continue teaching- Cough and deep breathing, incision monitoring. Choose my plate Visit 4- Continue teaching- Discuss limitations Discuss how they are feeling Discuss progress toward goals Remaining visits- continue teaching and monitoring PREVENA Single Use Negative Wound Therapy System Caregiver Instruction Sheet 1. A Prevena dressing system was applied to the chest incision during surgery , to promote wound healing. It works via a suction device (negative pressure wound therapy) to remove low to moderate levels of exudate (drainage) and infectious materials. We recommend that the device stay in place for up to seven days, from day of surgery. 2. Day of Surgery___/09/27 Day of Removal ___/ 3. The dressing should only be removed by a health health care consultant. Please arrange removal of device to coincide with Home Health visit and or with Nursing staff at Rehab 4. If skin reddening or irritation of skin occurs, or excessive drainage, please notify the Cardiovascular Surgeons office at [phone]. 5. Light showering is permissible; however the pump should be disconnected and placed in safe location, where it will not get wet. The dressing should not be exposed to direct spray or submerged in water. No bath tub / shower only. Ensure the end of the tubing attached to the dressing is facing down so that water does not enter the top of the tube. 6. To remove Prevena dressing: press purple button to turn off device / remove the suction. Then disconnect the tubing from the pump. The fixation strips should be stretched away from the skin and the dressing lifted at one corner and peeled back until it has been fully removed. 7. After removal, it is ok to shower daily using liquid dial soap and clean wash cloth, rinse and pat dry, and leave incision open to air dry. For any concerns regarding Prevena dressing, and or wounds, please contact Eleanor Bentley, patient navigator at [phone] or notify the Cardiovascular Surgeons office at [phone]. Incentive spirometry Q1 hr x 10, while awake, also use acapella device hourly whole awake Sternal Breast Bone Precautions: NO pushing or pulling, ( pt must use sternal pillow to support chest with all activities and with coughing ( takes up to 3 months breast bone to heal ) Daily incision care: ok to shower daily, no tub bath. Wash all incisions with liquid dial soap, clean wash cloth to each site, rinse and pat dry. Observe for any signs of infection, such as drainage which is dark yellow, gates, green or foul smelling. Immediately report to the surgeon any drainage from the chest incision, or legs, and for any abnormal drainage from the chest tube sites. Notify surgeon if any temp >101.5 degrees F. When specialty dressing removed/ or if you do not have one, continue to shower daily as above, then rinse and pat incision dry and paint with betadine daily x 5 days. Allow steri strips to fall off if you have any. Avoid lotions, creams, salves, oils, etc. for the first month Please see attached forms for additional instructions regarding post Open Heart specialty wound vacuum dressings. KATJA or Prevena , Dressing to be removed by Nursing staff on __12/13/[address] Marie patients , please obtain CBC, BMP, PA & Lat CXR in 2 weeks, results to Dr. Marie ( prescription will be given) ( ) (Tele: [phone]) , Valve replacement pts will need 2decho in 2 weeks with results to Dr. Marie . Please obtain 2 d echo at your diversity intern office if possible F/U appointment: as per DC instructions: PCP in 2 weeks, CV surgeon 2 weeks, Shop Welder 3-4 weeks For any questions regarding incisions/ dressing / meds / post op care or above Symptoms, Thursday 8am-5pm Heart & Vascular Surgery Office ( Dr. Whalen & Dr. Marie), After Hours / Nights (5pm -8am) Weekends and Holidays Please call [facility] Cardiac [facility] Unit (CIC) Charge Nurse I have seen patient Buster Aranda on 03/18/17. My clinical findings support the need for the requested home health care services because: Patient has SOB Deconditioned w/ increased weakness I certify that my clinical findings support that this patient is homebound because: Post-op weakness Hx COPD- exertion dyspnea/weakness Xiao Cerna Mar 18, 2017 14:22
[2017-03-18] MEDS ORDERED: DEXTROSE 50% IN WATER 50 ML VIAL(D50) IV PUSH PRN (14:30)
--- NOTE | 2017-03-18 14:44 | HHI.CCPN ---
Subjective Remarks/Hospital Course 03/13: 72-year-old male with a medical history significant for atrial fibrillation, coronary artery disease, peripheral vascular disease who developed progressive shortness of breath about 1-1/2 hours prior to his arrival to the ER. He reportedly was visiting the area from [place]. EMS was called when he started having shortness of breath and was noted to have heart rate in the 180s. He was given 2 doses of Indocin and subsequently 20 mg Cardizem IV with which his heart rate temporarily came down however he was noted to be in A. fib with RVR on arrival in the ER. Patient was initiated on BiPAP for respiratory distress and hypoxia and was initiated on a Cardizem drip. Dr. Meza from cardiology was consulted by ER physician in view of pulmonary edema and slightly elevated troponin and A. fib with RVR. Patient was accepted for admission by critical care medicine service. I ordered Lopressor 5 mg IV stat as patient was on Cardizem 15 mg/h and still tachycardic with ventricular rate 120 to 130s. Following administration of Lopressor his heart rate came down to the 90s while on Cardizem drip. When I evaluated the patient in the ER he was on BiPAP with full facemask. He stated that since receiving the Lopressor he was feeling better however still very short of breath. He denied any chest pain. 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 He has previously had a cardiac catheterization way back in 2008 and was told he had an obstruction. He has also had a stress test in 2014 which was abnormal. Patient states that he cannot take blood thinners due to history of GI bleeding. He was advised to have a cardiac catheterization by his industrial tractor driver previously. He denies any fevers or chills. Denies any chest pain nausea or vomiting. Denies any melena or rectal bleeding currently. 03/14: Resting in bed comfortably. On nasal cannula. Remains on Cardizem drip for A. fib with RVR. Troponin trending down. 03/15: Resting comfortably on 2 L nasal cannula. Diuresing well. Off Cardizem drip however still in A. fib with runs of rapid rate. Remains on heparin drip. 03/16 Patient s/p cardiac cath yesterday showed 3VD, mod. . CTS consult for CABG and AVR. 03/17: Remains in A. fib with RVR. Resuming Cardizem drip following Cardizem 20 mg IV 2 doses for A. fib with RVR this morning. Loaded with digoxin 0.5 mg IV stat earlier and we'll continue oral digoxin starting tomorrow. Awaiting CABG/ AVR. 03/18: Patient seen this morning prior to surgery. At that time he was in A. fib with good rate control on Cardizem drip at 5 mg per hour. Minimal shortness of breath. Denied any chest pain at the time. Objective Vital Signs Date Time Temp Pulse Resp B/P (MAP) Pulse Ox O2 Delivery O2 Flow Rate FiO2 03/18/17 07:49 96 Nasal Cannula 3.00 03/18/17 07:00 79 03/18/17 04:57 117/74 03/18/17 04:00 98.3 22 Intake and Output 03/18/17 03/18/17 03/19/17 08:00 16:00 00:00 Intake Total 700 ml 2750 ml Output Total 750 ml 250 ml Balance -50 ml 2500 ml Result Diagram: 03/17/17 0640 03/17/17 0640 Other Results Microbiology Date/Time Source Procedure Growth Status 03/17/17 16:30 Stool Stool Stool Occult Blood (FIONA) - Final HEMOCCULT NEGATIVE Complete Imaging Last Impressions Chest X-Ray 03/16/17 0600 Signed Impressions: Service Date/Time: Thursday, March 16, 2017 04:58 - CONCLUSION: Stable appearance with mild streaky opacity of the lung bases which could indicate atelectasis or scarring. Infiltrate is less likely. Matthew Preston MD Carotid Artery Ultrasound 03/15/17 0000 Signed Impressions: Service Date/Time: Wednesday, March 15, 2017 20:26 - CONCLUSION: Bilateral bifurcation atherosclerotic disease. There is hemodynamically significant stenosis of the right internal carotid artery and occlusion of the left internal carotid artery. Clarence Good MD Objective Remarks Narrative GENERAL: Well-nourished, well-developed patient, elderly male, laying in bed in no acute distress SKIN: Warm and dry HEAD: Normocephalic and atraumatic. EYES: No injection or drainage. ENT: No nasal drainage noted. NECK: Supple, trachea midline. CARDIOVASCULAR: irregular rate and rhythm, systolic murmur present RESPIRATORY: On nasal cannula, good air entry bilaterally, scattered rhonchi and bibasilar crackles, no wheezing. GASTROINTESTINAL: Abdomen soft, nondistended. EXTREMITIES: 2+ pitting edema bilateral legs, mid tibia. NEUROLOGICAL: Awake. moves all extremities and sensory grossly within normal limits. Normal speech. A/P Assessment and Plan 72-year-old male with: Acute respiratory failure A. fib with RVR Non-ST elevation [place] CHF Triple vessel CAD Moderate to severe aortic stenosis COPD HTN Hyperlipidemia Gout Plan: Neuro: Monitor neuro status. Avoid sedatives CV: Monitor HR and BP keep MAP>65mmHg s/p cardiac cath 03/15 showed 3VD, mod. , CTS consulted and patient is scheduled for CABG and AVR 03/18 Cards is following- Dr. Meza. Remains on Heparin/ Amiodarone drip. Restarted Cardizem drip for A. fib with RVR. Given digoxin 0.5 mg IV 1 on 03/17 followed by digoxin 0.125 mg by mouth daily starting 03/18 for better rate control. On Cardizem CD 300mg daily, Lopressor 50mg Q8, Lisinopril on hold, ASA 81mg daily. Diuresed with Lasix Pulm: Continue with oxygen keep sat >92% Bronchodilators GI/liver: Heart healthy diet Renal/:Monitor renal function, electrolytes replacement as needed, On Lasix 40mg BID, KCL 20meq BID Heme:Monitor CBC Endocrine: SSI for glycemic control if needed. Prophylaxis: SCDs.Pepcid. Continue heparin drip. Level 3 . Artemio Skinner MD Mar 18, 2017 14:44
[2017-03-18] MEDS ORDERED: ALBUMIN 5% INJ 250 ML IV PRN (15:00)
[2017-03-18] MEDS ORDERED: CALCIUM CHLORIDE INJ 1 GM in SODIUM CHLORIDE 0.9% INJ 100 ML IV PRN (15:00)
[2017-03-18] MEDS ORDERED: CLEVIDIPINE INJ 50 ML IV PRN (15:00)
[2017-03-18] MEDS ORDERED: MAGNESIUM SULFATE INJ 2 GM in SODIUM CHLORIDE 0.9% INJ 100 ML IV PRN ×4 (15:00)
[2017-03-18] MEDS ORDERED: hydrALAZINE HCL 20 MG/ML VIAL IV PUSH PRN (15:00)
[2017-03-18] MEDS ORDERED: INSULIN REGULAR (IV INFUSION) 100 UNITS in SODIUM CHLORIDE 0.9% INJ 99 ML IV PRN (15:00)
[2017-03-18] MEDS ORDERED: CALCIUM CHLORIDE 10% 1 GRAM/10 ML VIAL IV PUSH PRN (15:00)
[2017-03-18] MEDS ORDERED: RESP: RACEPINEPHRINE 2.25% 0.5 ML NEB NEB PRN (15:00)
[2017-03-18] MEDS: ACETAMINOPHEN 1000 MG/100 ML 100 ML IV SCH ×2 (15:07→21:42)
[2017-03-18] MEDS ORDERED: SODIUM CHLORIDE 0.9% FLUSH 10 ML FLUSH IV FLUSH PRN (15:15)
[2017-03-18] MEDS ORDERED: SODIUM BICARBONATE 8.4% SOLN 50 MEQ/50 ML VIAL IV PUSH PRN ×2 (15:30)
[2017-03-18] MEDS ORDERED: POTASSIUM CHLOR 20 MEQ PREMIX 100 ML IV PRN ×3 (15:30→16:00)
[2017-03-18] MEDS ORDERED: EPINEPHrine 2 MG/D5W 250 ML IV PRN ×2 (15:30)
[2017-03-18] MEDS ORDERED: ONDANSETRON HCL 4 MG/2 ML VIAL IV PUSH PRN (16:00)
[2017-03-18] MEDS ORDERED: POTASSIUM CHLORIDE 20 MEQ CONTROLLED RELEASE TAB PO PRN ×2 (16:00)
[2017-03-18] MEDS ORDERED: Post-op Orders (for Pharmacy) MISC OTHER ONE (16:00)
[2017-03-18] MEDS ORDERED: LACTATED RINGER'S 1000 ML INJ 500 ML IV PRN (16:15)
[2017-03-18] MEDS: RESP: ALBUTEROL 2.5 MG/IPRATROPIUM 0.5 MG NEB (SCH) NEB ×2 (16:25→20:58)
[2017-03-18] MEDS ORDERED: oxyCODONE/ACETAMINOPHEN 5 MG/325 MG TAB PO PRN (16:30)
[2017-03-18] MEDS ORDERED: ACETAMINOPHEN 650 MG SUPP RECTAL PRN (16:30)
[2017-03-18] MEDS ORDERED: ACETAMINOPHEN 325 MG TAB PO PRN (16:30)
--- NOTE | 2017-03-18 16:36 | RADRPT ---
EXAM DATE/TIME: 03/18/2017 15:37 [facility] COMPARISON: CHEST SINGLE AP, March 16, 2017, 4:58. INDICATIONS : Post op open heart surgery. MEDICAL HISTORY : Cardiovascular disease. Hypertension. Chronic obstructive pulmonary disease. SURGICAL HISTORY : CABG. Coronary artery stent. ENCOUNTER: Subsequent ACUITY: 1 day PAIN SCORE: Non-responsive. LOCATION: Bilateral chest FINDINGS: A single view of the chest demonstrates interval surgical intervention with placement of median kamara otomy wires, mediastinal drain, right IJ central venous catheter, left thoracostomy tube, nasogastric tube and an endotracheal tube. The endotracheal tube may be somewhat shallow with the side-port visu alized above the GE junction. Other tubes appear to be appropriately positioned. Stable bibasilar ate lectasis/scarring. Heart size is prominent but appears to be well compensated. CONCLUSION: 1. Post surgical changes. Nasogastric tube may be shallow with the side-port above the GE junction. T he tip is not visualized, however. Remaining life support tubes are all appropriately positioned. 2. Cardiomegaly without overt failure. Bibasilar atelectasis/scarring. Deandre Olea MD on March 18, 2017 at 16:24 Board Certified Radiologist. This report was verified electronically.
[2017-03-18] MEDS ORDERED: SODIUM BICARBONATE 8.4% INJ 50 MEQ/50 ML SYR ONE (16:55)
[2017-03-18] MEDS: METOCLOPRAMIDE HCL 10 MG/2 ML VIAL IV PUSH SCH ×2 (17:36→21:42)
[2017-03-18] MEDS ORDERED: SODIUM BICARBONATE 8.4% SOLN 50 MEQ/50 ML VIAL IV ONE (17:45)
[2017-03-18] MEDS ORDERED: GLUCAGON 1 MG/ML VIAL OTHER PRN (19:45)
[2017-03-18] MEDS: AMIODARONE 200 MG TAB PO SCH (22:01)
[2017-03-18] MEDS: METOPROLOL TARTRATE 5 MG/5 ML VIAL IV PUSH PRN (23:27)
[2017-03-19] VITALS (10 sets, daily range): BP systolic 93–163; BP diastolic 50–80; PULSE 86–121; RESP 16–20; TEMP 97.3–98.3; O2SAT 96–99
[2017-03-19] MEDS: ACETAMINOPHEN 1000 MG/100 ML 100 ML IV SCH ×2 (02:38→08:15)
[2017-03-19] MEDS: RESP: ALBUTEROL 2.5 MG/IPRATROPIUM 0.5 MG NEB (SCH) NEB ×4 (03:31→21:00)
[2017-03-19] MEDS: METOPROLOL TARTRATE 5 MG/5 ML VIAL IV PUSH PRN ×2 (03:34→06:31)
[2017-03-19] MEDS: CHLORHEXIDINE GLUCONATE 2 % 1 PACK (2 CLOTHS) TOP SCH (04:00)
[2017-03-19 05:11] LABS: HEMATOCRIT 34.5 % (39.0-51.0); MEAN CELL VOLUME 90.1 FL (80.0-100.0); MEAN CORPUSCULAR HEMOGLOBIN 29.2 PG (27.0-34.0); MEAN CORPUSCULAR HGB CONC 32.4 % (32.0-36.0); PLATELET COUNT 113 TH/MM3 (150-450); RED BLOOD COUNT 3.83 MIL/MM3 (4.50-5.90); RED CELL DISTRIBUTION WIDTH 16.4 % (11.6-17.2); REVIEW FLAG FINAL; WHITE BLOOD COUNT 16.9 TH/MM3 (4.0-11.0)
[2017-03-19 05:20] LABS: APTT (PATIENT) 28.1 SEC (24.3-30.1)
[2017-03-19] MEDS: PANTOPRAZOLE SOD 40 MG DELAYED RELEASE TAB PO SCH (05:26)
[2017-03-19 05:27] LABS: BICARBONATE 26.1 MEQ/L (21.0-32.0); MAGNESIUM 2.3 MG/DL (1.5-2.5); POTASSIUM 4.8 MEQ/L (3.5-5.1)
--- NOTE | 2017-03-19 05:53 | RADRPT ---
EXAM DATE/TIME: 03/19/2017 04:34 [facility] COMPARISON: CHEST SINGLE AP, March 18, 2017, 15:37. INDICATIONS : Shortness of breath, possible pneumothorax. MEDICAL HISTORY : Cardiovascular disease. Hypertension Chronic obstructive pulmonary disease. SURGICAL HISTORY : CABG. Coronary artery stent. ENCOUNTER: Subsequent ACUITY: 2 days PAIN SCORE: Non-responsive. LOCATION: Bilateral chest FINDINGS: A single AP semierect view of the chest was obtained. The patient has been extubated and the nasogast arsalan tube has been removed. The mediastinal chest tube and left-sided chest tube remain in place with no pneumothorax. The right internal jugular central venous line remains in place. The patient is again noted to be status post median sternotomy and artificial heart valve in place. T he heart size remains moderately enlarged. Hazy opacity remains at the lung bases. CONCLUSION: 1. Interval extubation and removal of nasogastric tube. 2. Mediastinal chest tube and left-sided chest tube with no pneumothorax. 3. Stable cardiomegaly with bibasal opacity. Matthew Preston MD on March 19, 2017 at 5:51 Board Certified Radiologist. This report was verified electronically.
[2017-03-19] MEDS: CHLORHEXIDINE 0.12% (ORAL KIT) 15 ML CUP MT SCH (08:00)
[2017-03-19] MEDS: METOCLOPRAMIDE HCL 10 MG/2 ML VIAL IV PUSH SCH (08:15)
[2017-03-19] MEDS ORDERED: BISACODYL 10 MG SUPP RECTAL PRN (09:00)
[2017-03-19] MEDS ORDERED: MULTIVITAMIN INJ 10 ML, THIAMINE INJ 500 MG, FOLIC ACID INJ 1 MG in SODIUM CHLORID 0.9%... IV SCH (09:00)
[2017-03-19] MEDS ORDERED: GLUCAGON 1 MG/ML VIAL OTHER PRN (09:00)
[2017-03-19] MEDS ORDERED: MAGNESIUM HYDROXIDE SUSP 30 ML CUP PO SCH (09:00)
[2017-03-19] MEDS ORDERED: ACETAMINOPHEN/HYDROcodone 325 MG/5 MG TAB PO PRN (09:00)
[2017-03-19] MEDS ORDERED: SOD PHOSPHATE/SOD BIPHOSPHATE (ADULT) ENEMA 133ML RECTAL PRN (09:00)
[2017-03-19] MEDS ORDERED: ASPIRIN 81 MG CHEW TAB PO SCH (09:00)
[2017-03-19] MEDS ORDERED: DEXTROSE 50% IN WATER 50 ML VIAL(D50) IV PUSH PRN (09:00)
[2017-03-19] MEDS ORDERED: MULTIVITAMINS/MINERALS THERAPEUTIC TAB PO SCH (09:00)
[2017-03-19] MEDS: ALLOPURINOL 300 MG TAB PO SCH (09:25)
[2017-03-19] MEDS: DIGOXIN 0.125 MG TAB PO SCH (09:25)
[2017-03-19] MEDS: AMIODARONE 200 MG TAB PO SCH ×2 (09:25→21:00)
[2017-03-19] MEDS: SODIUM CHLORIDE 0.9% FLUSH 10 ML FLUSH IV FLUSH SCH ×2 (09:26→21:00)
[2017-03-19] MEDS: INSULIN ASPART SUPPLEMENTAL SCALE SQ SCH ×4 (10:00→21:52)
[2017-03-19 11:02] LABS: BLOOD GAS BASE EXCESS -8.7 mmol/L (-2-2); BLOOD GAS HCO3 16 mmol/L (22-26); BLOOD GAS METHEMOGLOBIN 1.1 % (0-2); BLOOD GAS O2 HGB SATURATION 95 % (90-100); BLOOD GAS PCO2 29 mmHg (38-42); BLOOD GAS PO2 99 mmHg (61-120); BLOOD GAS TOTAL HGB 10.4 G/DL (12.0-16.0); CRITICAL VALUE YES; LITER FLOW 6 L/M; OXYGEN DEVICE NASAL CANNULA; TEMP CORR TO 98.6
[2017-03-19 11:03] LABS: DRAW SITE RT BRACHIAL; NUMBER OF ARTERIAL PUNCTURES 2; STAT YES; ULNAR PULSE PRESENT
--- NOTE | 2017-03-19 11:34 | MB ---
cc: HARPERTOBIN DATE OF CONSULTATION 03/19/2017 REASON FOR CONSULTATION This is a 72-year-old right-handed man with hypertension, hypercholesterolemia and SD. In the past month or so, he just had a CABG. He has a known history of A. fib for at least six months, but did not want to be on a blood thinners. He has a remote history of peptic ulcer disease. He has COPD. He has a known carotid occlusion, his thinks on the left 100% and about 50% on the right. He is postop CABG and he was sitting up in the chair this morning, had chest pain and then eyes seemed to be staring off rolled back a little bit and was put in the bed. He seemed to be unconscious for about 45 seconds or so according to the nurse. He was flaccid just staring straight ahead and then he came out of it. He was bagged briefly and seemed to bag okay and then woke up and was back to normal. He bradied down to about 65 when it occurred. Blood pressure afterwards was about 120. He, himself, remembers feeling like he was had having trouble breathing. SOCIAL HISTORY Not a smoker. Occasionally has a drink. Lives with his . FAMILY HISTORY Negative for cancer, seizure, or stroke according to his . REVIEW OF SYSTEMS No diabetes, renal, hepatic disease, thyroid disease, lupus, cancer, seizure, prior stroke. MEDICATIONS 1. MiraLax 2. Senokot 3. Lipitor 4. Amiodarone drip which I think may have just been started. 5. Insulin 6. 81 of Aspirin 7. Multivitamin 8. Lopressor which he got at 9 o'clock this morning. 9. Cefazolin 10. Amiodarone orally PHYSICAL EXAM On exam, sinus rhythm here to sinus tach, afebrile, 98. The lowest blood pressure yesterday was 95/45, but his blood pressures have been normal this morning to slightly elevated. NECK: There are no carotid bruits. HEART: Regular rhythm with a I/ systolic ejection murmur. He has a recent CABG bandaging. NEUROLOGIC: Pupils are equal, visual skelton are full. Face is symmetric. Tongue was midline. He had normal strength in the upper and lower extremities bilaterally. Toes were downgoing bilaterally. DTRs are trace. He is awake and alert. He knew he was at the hospital. He follows commands well. He is not aphasic. He could repeat well. LABS White count is 16, hematocrit 34, platelet count 113. Basic metabolic profile at 04:00 a.m. this morning was essentially normal. His LFTs have been normal two days ago. His troponin was a 13 on 03/13. UA was negative the other day. Urine drug screen was also normal in the last week. A PTT this morning is 28. He had a CT of his neck on 05/17/2016. He has occlusion of the left internal carotid artery, mild to moderate stenosis in the right internal about 50%. IMPRESSION Probably not a TIA, although a clot to the basilar artery briefly could have caused him to lose consciousness. It may have been more since he was sitting up and had chest pain, low blood pressure transiently. PLAN We will do a CT of the brain and a the CTA of the neck to make sure that she vertebrobasilar system is clear and if the CT is negative for hemorrhage, start him on IV heparin, no bolus ever with the recent A fib. I note he had an echocardiogram done several days ago. His EF was 25-35% with global hypokinesis. We can recheck an echo postop here. I note his surgery was yesterday and it appears that he had a resection of his left atrial appendage. His EF was about 35% intraop. I note he had his aortic valve replaced, the left atrial appendage was resected using a surgical stapling device before the heart was arrested according to the op note. I note his surgeon was on-site during the stroke alert that was called today and had okayed the IV heparin. MD AMANDEEP Galicia/JORDAN /10:57 AM /11:10 AM
[2017-03-19] MEDS ORDERED: IOHEXOL 350 MG/ML 10 ML VIAL (for RAD DIAG) IVCONTRAST ONE (11:43)
--- NOTE | 2017-03-19 11:56 | RADRPT ---
EXAM DATE/TIME: 03/19/2017 11:14 [facility] COMPARISON: No previous studies available for comparison. INDICATIONS : Possible cerebrovascular accident RADIATION DOSE: 56.35 CTDIvol (mGy) MEDICAL HISTORY : Cardiovascular disease. Hypertension. Chronic obstructive pulmonary disease. SURGICAL HISTORY : None. ENCOUNTER: Initial ACUITY: 1 day PAIN SCALE: 0/10 LOCATION: cranial TECHNIQUE: Multiple contiguous axial images were obtained of the head. Using automated exposure control and adj ustment of the mA and/or kV according to patient size, radiation dose was kept as low as reasonably a chievable to obtain optimal diagnostic quality images. DICOM format image data is available electro nically for review and comparison. FINDINGS: CEREBRUM: There is mild streak last view. Ventricles are normal. Small area of encephalomalacia is present in t he left frontal lobe and high convexity. There is a possible old lacune in the left caudate nucleus head. No evidence of midline shift, mass lesion, hemorrhage or acute infarction. No extra-axial flui d collections are seen. POSTERIOR FOSSA: The cerebellum and brainstem demonstrate no acute finding. The 4th ventricle is midline. The cerebe llopontine angle is unremarkable. EXTRACRANIAL: Visualized sinuses are clear. SKULL: The calvaria is intact. No evidence of skull fracture. CONCLUSION: 1. No acute intracranial abnormality is identified. 2. Encephalomalacia involving a small area of the left frontal lobe at the high convexity. Clarence Bhakat MD on March 19, 2017 at 11:51 Board Certified Radiologist. This report was verified electronically.
[2017-03-19] MEDS: DOCUSATE SODIUM 100 MG CAP PO SCH ×2 (12:03→21:00)
[2017-03-19] MEDS: METOPROLOL TARTRATE 25 MG TAB PO SCH ×2 (12:03→21:00)
--- NOTE | 2017-03-19 12:08 | RADRPT ---
EXAM DATE/TIME: 03/19/2017 11:25 [facility] COMPARISON: CT THORAX W CONTRAST, March 16, 2017, 18:40. CHEST SINGLE AP, March 19, 2017, 4:34. INDICATIONS : Possible pulmonary embolus IV CONTRAST: 50 cc Omnipaque 350 (iohexol) IV RADIATION DOSE: 21.38 CTDIvol (mGy) MEDICAL HISTORY : Chronic obstructive pulmonary disease. Hypertension. Cerebrovascular disease. SURGICAL HISTORY : CABG ENCOUNTER: Initial ACUITY: 1 day PAIN SCALE: 0/10 LOCATION: chest TECHNIQUE: Volumetric scanning of the chest was performed using a pulmonary embolism protocol MIP images were re constructed. Using automated exposure control and adjustment of the mA and/or kV according to patien t size, radiation dose was kept as low as reasonably achievable to obtain optimal diagnostic quality images. DICOM format image data is available electronically for review and comparison. Follow-up recommendations for detected pulmonary nodules are based at a minimum on nodule size and pa tient risk factors according to Fleischner Society Guidelines. FINDINGS: PULMONARY ARTERIES: No filling defects are seen in the pulmonary arteries through the segmental level. LUNGS: There are small to moderate size bilateral pleural effusion, left larger than right. Compressive atel ectasis is present within both lower lobes. There is moderate background centrilobular emphysema. A s mall left pneumothorax is present. A large bore left chest tube is present. PLEURAE: There are small moderate size simple appearing pleural effusions bilaterally, left larger than right. MEDIASTINUM: Patient is post aortic valve replacement. There is severe coronary artery calcification and atheroscl erotic disease of the aorta. There is stable dilatation of the proximal arch measuring 3.8 cm and dil atation of the descending thoracic aorta measuring 4.6 cm. There is a small high density pericardial effusion, new from the prior study. Mediastinal drain is present anteriorly. There is mediastinal air present likely related to the recent surgery. MUSCULOSKELETAL: Median sternotomy wires are present. There are degenerative changes of the thoracic spine. MISCELLANEOUS: The visualized upper abdominal organs demonstrate no acute abnormality. CONCLUSION: 1. No PE is identified. 2. Small bilateral pleural effusions, left larger than right, with associated compressive atelectasis in both lower lobes. 3. There is a small left pneumothorax but a left chest tube is present. 4. Small high density pericardial effusion with mediastinal drain present. High density suggests that the effusion contains blood products. 5. Stable nonacute findings include severe atherosclerotic disease, severe coronary calcification, de scending thoracic aortic aneurysm, and moderate emphysema. Clarence Bhakta MD on March 19, 2017 at 11:59 Board Certified Radiologist. This report was verified electronically.
--- NOTE | 2017-03-19 12:11 | RADRPT ---
EXAM DATE/TIME: 03/19/2017 11:12 [facility] COMPARISON: CTA CAROTID ARTERIES W 3D RECON, March 16, 2017, 18:59. INDICATIONS : Possible cerebrovascular accident IV CONTRAST: 50 cc Omnipaque 350 (iohexol) IV ; Cumulative dose for multiple exams. RADIATION DOSE: 18.02 CTDIvol (mGy) ; Combined studies MEDICAL HISTORY : Hypertension. Chronic obstructive pulmonary disease. Cardiovascular disease SURGICAL HISTORY : CABG ENCOUNTER: Initial ACUITY: 1 day PAIN SCALE: 0/10 LOCATION: cranial TECHNIQUE: Volumetric scanning was performed using a multi-row detector CT scanner. The data was post processed with a variety of visualization algorithms including full volume maximum intensity projection, multi -planar sliding thin slab reformation, curved planar reformation, and surface rendering techniques. Using automated exposure control and adjustment of the mA and/or kV according to patient size, radiat ion dose was kept as low as reasonably achievable to obtain optimal diagnostic quality images. DICO M format image data is available electronically for review and comparison. FINDINGS: There is complete occlusion of the supraclinoid carotid artery on the left side with reconstitution v ia cross fill from the right side from a patent intercommunicating artery. There is good filling of t he left middle cerebral artery. Examination of posterior fossa also demonstrates no evidence of aneurysm or vascular malformation. Th e vertebral arteries are codominant. There is no evidence of aneurysm. No intracranial stenosis is id entified. CONCLUSION: 1. Complete occlusion of the left internal carotid artery as above. Fabio Saunders MD on March 19, 2017 at 12:06 Board Certified Radiologist. This report was verified electronically.
--- NOTE | 2017-03-19 12:32 | RADRPT ---
EXAM DATE/TIME: 03/19/2017 11:12 [facility] COMPARISON: CTA CAROTID ARTERIES W 3D RECON, March 16, 2017, 18:59. INDICATIONS : Possible cerebrovascular accident IV CONTRAST: 50 cc Omnipaque 350 (iohexol) IV ; Cumulative dose for multiple exams. RADIATION DOSE: 18.02 CTDIvol (mGy) ; Combined studies MEDICAL HISTORY : Chronic obstructive pulmonary disease. Cardiovascular disease Hypertension. SURGICAL HISTORY : CABG ENCOUNTER: Initial ACUITY: 1 day PAIN SCALE: 0/10 LOCATION: neck Elevated flow velocities and ICA/CCA ratios have been found to correlate with increased degrees of vessel stenosis, calculated as percentage of diameter relative to a normal segment of distal ICA/CCA. TECHNIQUE: Volumetric scanning was performed using a multirow detector CT scanner. The data was post processed with a variety of visualization algorithms including full-volume maximum intensity projection, multip lanar sliding thin-slab reformation, curved-planar reformation, and surface-rendering techniques. Us ing automated exposure control and adjustment of the mA and/or kV according to patient size, radiatio n dose was kept as low as reasonably achievable to obtain optimal diagnostic quality images. DICOM f ormat image data is available electronically for review and comparison. FINDINGS: AORTIC ARCH: There is a three-vessel origin of the great vessels from the aorta. Scattered calcified plaque in the origin of the great vessels without significant stenosis RIGHT CAROTID: The common carotid artery demonstrates scattered calcified plaque. The carotid bulb has a normal conf iguration without ulceration or narrowing. Moderate plaque throughout the right proximal internal car otid artery without significant stenosis. There is probable narrowing in the 30-40% range. LEFT CAROTID: The common carotid artery demonstrates some scattered calcified plaque. Complete occlusion left inter nal carotid artery. VERTEBRALS: The vertebral arteries have a symmetric diameter. Scattered calcified plaque bilaterally without sign ificant stenosis. CONCLUSION: 1. Complete occlusion left internal carotid artery again seen. 2. Mild atherosclerotic changes within the right internal carotid without significant stenosis Anup Osborne MD on March 19, 2017 at 12:26 Board Certified Radiologist. This report was verified electronically.
[2017-03-19] MEDS: AMIODARONE INJ 450 MG in DEXTROSE 5% IN WATE(EXCEL) INJ 241 ML IV PRN ×4 (12:37→21:57)
[2017-03-19] MEDS: ACETAMINOPHEN/HYDROcodone 325 MG/5 MG TAB PO PRN ×2 (12:55→13:57)
[2017-03-19 13:07] LABS: APTT (PATIENT) 31.8 SEC (24.3-30.1); INTERNATIONAL NORMALIZED RATIO 1.3 RATIO; PROTHROMBIN TIME - PATIENT 12.9 SEC (9.8-11.6)
--- NOTE | 2017-03-19 14:24 | MG ---
cc: HALINA COLLIER MD Lab No: Date: 03/19/2017 Age: Sex: M Race: DATE OF [address] Herzog[address] MEDICAL HISTORY Not available. MEDICATIONS Not available. DESCRIPTION At the beginning of the EEG the background was 6-7 Hz theta. During the recording there are intermittent EPOCs which show a background of 8-9 Hz alpha. There is some generalized slowing of the background intermittent. Hyperventilation was omitted. Photic stimulation did not elicit driving response. There is excessive movement artifact during the recording. There were no epileptiform discharges or electrographic seizures noted. INTERPRETATION This is an awake and drowsy EEG. There were no abnormal electrographic seizures /ictal activity or epileptiform discharges noted. Clinical correlation is recommended. Halina Collier MD RGO/TLL /1:40 PM /1:59 PM [facility]
[2017-03-19] MEDS ORDERED: SODIUM CHLOR 0.9% 250 ML INJ 250 ML IV ONE (15:00)
--- NOTE | 2017-03-19 15:46 | PD.CAR.PN ---
CVT Progress Note Subjective/Hospital Course: 72/ male, visiting from [place] area had not been feeling well for about the past month. Has a longstanding history of atrial fibrillation and presented with atrial fibrillation rapid ventricular response. Heart rates in the 180s. He was given adenosine, subsequently IV Cardizem which seemed to improve his heart rate. He also had some respiratory distress, some hypoxemia and they placed BiPap. He denied chest pain. He has been worked up by Dr. Christian at [facility] and also seen a Dr. Bee for possible evaluation for EP study. They wanted to put him on blood thinners and cardioversion but he declined because he says he has had problems with blood thinners in the past. The patient's troponin came back at 1.0 and his BNP at 622. He underwent cardiac cath by Dr. Deyvi Meza which showed 100% occlusion in the mid segment of the RCA. The LAD had a proximal lesion of 90%, diffusely disease and the first diagonal was 100% occluded. The left circ had a 90% lesion in the distal segment and the obtuse marginal which was small was 100% occluded. He also had an echocardiogram which showed ejection fraction of 25-35%. Moderate mitral regurgitation, moderate to severe aortic stenosis. Trace tricuspid valve regurgitation. We were consulted to evaluate for coronary artery bypass grafting and aortic valve replacement. PAST MEDICAL HISTORY: Atrial fibrillation, Hyperlipidemia, COPD, Gastroesophageal reflux disease, Gout, Hypertension, Peripheral arterial disease, He has got abdominal stent apparently had some type of an aneurysm in his aorta, stents in the left femoral artery. 03/17 remains in afib rate now controlled, started on digoxin had mild pain earlier when HR was elevated for surgery in am 03/18 surgery : CABG x 2 DE JESUS to LAD - good SVG to PLB - good distal target EVH AVR with a 25 Intuity tissue valve ABEBE Resection left atrial appendage 03/19 pt was up in chair earlier, off all gtts A&O , chest tube drained 533/ 12 hrs bloody drainage pain controlled later in am , pt was again in chair had chest pain and then eyes seemed to be staring off rolled back a little bit and was put in the bed. He seemed to be unconscious for about 45 seconds or so according to the nurse. He was flaccid just staring straight ahead and then he came out of it. He was bagged briefly and seemed to bag okay and then woke up and was back to normal. HR dusty 65 , prior he was in NSR 80-90, was weaned off amiodarone gtt and started on po amiodarone, BB had not been given at that time He also complained of being SOB, stat CT Head completed , neuro consulted He, himself, remembers feeling like he was had having trouble breathing. stat CTA Head : Complete occlusion of the left internal carotid artery as above. stat CTA neck: Complete occlusion left internal carotid artery again seen. 2. Mild atherosclerotic changes within the right internal carotid without significant stenosis/ pt has known complete occlusion of left ICA CTA chest : No PE is identifie, Small bilateral pleural effusions, left larger than right, with associated compressive atelectasis in both lower lobes, There is a small left pneumothorax but a left chest tube is present. Small high density pericardial effusion with mediastinal drain present. High density suggests that the effusion contains blood products. EEG : no seizures chest tubes remain in place , pt quickly recovered with no neuro deficit he still has significant bloody drainage from chest tube to start Heparin 2/2 recent afib and lynda v score 3.0 will start pradaxa when chest tubes out repeat H&H this after > 10 HGB will keep in ICU Form Tamper and Neuro following Objective: Vital Signs Date Time Temp Pulse Resp B/P (MAP) Pulse Ox O2 Delivery O2 Flow Rate FiO2 03/19/17 15:00 98.2 106 18 147/74 (98) 98 03/19/17 15:00 106 03/19/17 15:00 97 Nasal Cannula 3.00 03/19/17 12:37 108 125/69 03/19/17 11:00 97.5 114 20 93/70 (78) 99 Arterial Line 03/19/17 11:00 114 03/19/17 11:00 97 Nasal Cannula 3.00 03/19/17 08:26 98 Nasal Cannula 3.00 03/19/17 07:00 98 03/19/17 07:00 97.3 98 20 128/58 (81) 98 135/50 (78) 03/19/17 07:00 97 Nasal Cannula 3.00 03/19/17 06:46 98 143/48 03/19/17 03:31 96 Nasal Cannula 4.00 03/19/17 03:00 92 03/19/17 03:00 97 Nasal Cannula 4.00 03/19/17 03:00 98.3 86 16 147/75 (99) 96 163/54 (90) 03/18/17 23:00 86 03/18/17 23:00 96 Nasal Cannula 6.00 03/18/17 23:00 98.3 86 16 147/75 (99) 99 158/62 (94) 03/18/17 22:15 16 03/18/17 21:32 93 142/70 03/18/17 19:00 98.1 91 16 119/63 (81) 99 127/58 (81) 03/18/17 19:00 99 Nasal Cannula 6.00 03/18/17 19:00 91 03/18/17 18:12 84 111/50 03/18/17 17:05 95 Nasal Cannula 6 03/18/17 17:05 95 Nasal Cannula 6.00 03/18/17 17:05 95 Nasal Cannula 6.00 03/18/17 17:00 92 149/62 03/18/17 16:00 40 03/18/17 16:00 96.4 78 20 116/53 (74) 98 03/18/17 16:00 78 116/53 03/18/17 15:55 99 40 Labs: Laboratory Tests Test 03/19/17 04:35 03/19/17 10:52 03/19/17 12:20 White Blood Count 16.9 TH/MM3 (4.0-11.0) Red Blood Count 3.83 MIL/MM3 (4.50-5.90) Hemoglobin 11.2 GM/DL (13.0-17.0) Hematocrit 34.5 % (39.0-51.0) Mean Corpuscular Volume 90.1 FL (80.0-100.0) Mean Corpuscular Hemoglobin 29.2 PG (27.0-34.0) Mean Corpuscular Hemoglobin Concent 32.4 % (32.0-36.0) Red Cell Distribution Width 16.4 % (11.6-17.2) Platelet Count 113 TH/MM3 (150-450) Mean Platelet Volume 9.7 FL (7.0-11.0) Activated Partial Thromboplast Time 28.1 SEC (24.3-30.1) 31.8 SEC (24.3-30.1) Blood Urea Nitrogen 44 MG/DL (7-18) Creatinine 1.23 MG/DL (0.60-1.30) Random Glucose 103 MG/DL (74-106) Calcium Level 8.3 MG/DL (8.5-10.1) Magnesium Level 2.3 MG/DL (1.5-2.5) Sodium Level 136 MEQ/L (136-145) Potassium Level 4.8 MEQ/L (3.5-5.1) Chloride Level 102 MEQ/L (98-107) Carbon Dioxide Level 26.1 MEQ/L (21.0-32.0) Anion Gap 8 MEQ/L (5-15) Estimat Glomerular Filtration Rate 58 ML/MIN (>89) Blood Gas Puncture Site RT BRACHIAL Blood Gas Patient Temperature 98.6 Blood Gas HCO3 16 mmol/L (22-26) Blood Gas Base Excess -8.7 mmol/L (-2-2) Blood Gas Oxygen Saturation 95 % (90-100) Arterial Blood pH 7.35 (7.380-7.420) Arterial Blood Partial Pressure CO2 29 mmHg (38-42) Arterial Blood Partial Pressure O2 99 mmHg (61-120) Arterial Blood Oxygen Content 14.0 Vol % (12.0-20.0) Arterial Blood Carboxyhemoglobin 1.0 % (0-4) Arterial Blood Methemoglobin 1.1 % (0-2) Blood Gas Hemoglobin 10.4 G/DL (12.0-16.0) Oxygen Delivery Device NASAL CANNULA Blood Gas Liter Flow 6 L/M Prothrombin Time 12.9 SEC (9.8-11.6) Prothromb Time International Ratio 1.3 RATIO Result Diagram: 03/19/1743403/19/17434 (1) NSTEMI (non-ST elevated myocardial infarction) Plan: (2) Pulmonary edema (3) S/P CABG (coronary artery bypass graft) Plan: ASA, BB, statin OOB with PT/OT (4) S/P AVR (aortic valve replacement) (5) Respiratory failure Plan: pulm toileting check CXR in am (6) Atrial fibrillation with RVR Plan: on metoprolol and amiodarone start Heparin gtt/ in am when chest tube dc , > 350cc bloody drainage today transition to pradaxa pradaxa when chest tubes out (7) Systolic and diastolic CHF, acute on chronic Plan: EF 25 %> 35% start susu when BP and creatinine tolerates (8) CAD (coronary artery disease) Problem Qualifiers (1) Pulmonary edema: Qualified Codes: J81.0 - Acute pulmonary edema (2) Respiratory failure: Qualified Codes: J96.00 - Acute respiratory failure, unspecified whether with hypoxia or hypercapnia Xiao Cerna Mar 19, 2017 15:46
[2017-03-19] MEDS ORDERED: SODIUM BICARBONATE 8.4% SOLN 50 MEQ/50 ML VIAL IV PUSH ONE (16:30)
--- NOTE | 2017-03-19 17:44 | EKG ---
Date Performed: 03/19/2017 Time Performed: 05:12:40 PTAGE: 72 years EKG: Sinus rhythm with PAC(s) Short NV interval Left axis deviation RBBB with left anterior fascicular block Consider Inferior infarct - age undetermined Lateral T wave changes are nonspecific Abnormal ECG PREVIOUS TRACING : 03/13/2017 11.13.41 DOCTOR: Rashid Lujan Interpretating Date/Time 03/19/2017 17:42:25
--- NOTE | 2017-03-19 17:48 | HHI.CCPN ---
Subjective Remarks/Hospital Course 03/13: 72-year-old male with a medical history significant for atrial fibrillation, coronary artery disease, peripheral vascular disease who developed progressive shortness of breath about 1-1/2 hours prior to his arrival to the ER. He reportedly was visiting the area from [place]. EMS was called when he started having shortness of breath and was noted to have heart rate in the 180s. He was given 2 doses of Indocin and subsequently 20 mg Cardizem IV with which his heart rate temporarily came down however he was noted to be in A. fib with RVR on arrival in the ER. Patient was initiated on BiPAP for respiratory distress and hypoxia and was initiated on a Cardizem drip. Dr. Meza from cardiology was consulted by ER physician in view of pulmonary edema and slightly elevated troponin and A. fib with RVR. Patient was accepted for admission by critical care medicine service. I ordered Lopressor 5 mg IV stat as patient was on Cardizem 15 mg/h and still tachycardic with ventricular rate 120 to 130s. Following administration of Lopressor his heart rate came down to the 90s while on Cardizem drip. When I evaluated the patient in the ER he was on BiPAP with full facemask. He stated that since receiving the Lopressor he was feeling better however still very short of breath. He denied any chest pain. 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 He has previously had a cardiac catheterization way back in 2008 and was told he had an obstruction. He has also had a stress test in 2014 which was abnormal. Patient states that he cannot take blood thinners due to history of GI bleeding. He was advised to have a cardiac catheterization by his contract implementation analyst previously. He denies any fevers or chills. Denies any chest pain nausea or vomiting. Denies any melena or rectal bleeding currently. 03/14: Resting in bed comfortably. On nasal cannula. Remains on Cardizem drip for A. fib with RVR. Troponin trending down. 03/15: Resting comfortably on 2 L nasal cannula. Diuresing well. Off Cardizem drip however still in A. fib with runs of rapid rate. Remains on heparin drip. 03/16 Patient s/p cardiac cath yesterday showed 3VD, mod. . CTS consult for CABG and AVR. 03/17: Remains in A. fib with RVR. Resuming Cardizem drip following Cardizem 20 mg IV 2 doses for A. fib with RVR this morning. Loaded with digoxin 0.5 mg IV stat earlier and we'll continue oral digoxin starting tomorrow. Awaiting CABG/ AVR. 03/18: Patient seen this morning prior to surgery. At that time he was in A. fib with good rate control on Cardizem drip at 5 mg per hour. Minimal shortness of breath. Denied any chest pain at the time. 03/19: s/p 2 vessel CABG/ AVR on 03/18. Patient was seen earlier this morning he was sitting up in a chair appeared comfortable. Subsequently a stroke alert was called. Patient developed some chest pressure and momentarily lost consciousness for a few minutes with blank stare. I immediately reached patient's bedside. He was being evaluated by neurologist Dr. Herzog at that time as well. He was starting to regain consciousness at the time and knew he was in the hospital and was following commands appropriately with normal speech. He stated that he did have some chest pressure earlier before losing consciousness. He complained of minimal shortness of breath. He was moving all 4 extremities at the time. stat CTA Head : Complete occlusion of the left internal carotid artery as above. stat CTA neck: Complete occlusion left internal carotid artery again seen. 2. Mild atherosclerotic changes within the right internal carotid without significant stenosis/ pt has known complete occlusion of left ICA CT pulmonary angiogram : No PE noted. Small bilateral pleural effusions, left larger than right, with associated compressive atelectasis in both lower lobes, There is a small left pneumothorax but a left chest tube is present. Small high density pericardial effusion with mediastinal drain present. High density suggests that the effusion contains blood products. Objective Vital Signs Date Time Temp Pulse Resp B/P (MAP) Pulse Ox O2 Delivery O2 Flow Rate FiO2 03/19/17 15:00 98.2 106 18 147/74 (98) 98 03/19/17 15:00 Nasal Cannula 3.00 03/18/17 16:00 40 Intake and Output 03/19/17 03/19/17 03/20/17 08:00 16:00 00:00 Intake Total 1162 ml 154 ml 250 ml Output Total 933 ml Balance 229 ml 154 ml 250 ml Result Diagram: 03/19/17 0435 03/19/17 0435 Other Results Microbiology Date/Time Source Procedure Growth Status 03/17/17 16:30 Stool Stool Stool Occult Blood (FIONA) - Final HEMOCCULT NEGATIVE Complete Laboratory Tests Test 03/19/17 10:52 Blood Gas Puncture Site RT BRACHIAL Blood Gas Patient Temperature 98.6 Blood Gas HCO3 16 mmol/L (22-26) Blood Gas Base Excess -8.7 mmol/L (-2-2) Blood Gas Oxygen Saturation 95 % (90-100) Arterial Blood pH 7.35 (7.380-7.420) Arterial Blood Partial Pressure CO2 29 mmHg (38-42) Arterial Blood Partial Pressure O2 99 mmHg (61-120) Arterial Blood Oxygen Content 14.0 Vol % (12.0-20.0) Arterial Blood Carboxyhemoglobin 1.0 % (0-4) Arterial Blood Methemoglobin 1.1 % (0-2) Blood Gas Hemoglobin 10.4 G/DL (12.0-16.0) Oxygen Delivery Device NASAL CANNULA Blood Gas Liter Flow 6 L/M Imaging Last Impressions Chest X-Ray 03/16/17 0600 Signed Impressions: Service Date/Time: Thursday, March 16, 2017 04:58 - CONCLUSION: Stable appearance with mild streaky opacity of the lung bases which could indicate atelectasis or scarring. Infiltrate is less likely. Matthew Preston MD Carotid Artery Ultrasound 03/15/17 0000 Signed Impressions: Service Date/Time: Wednesday, March 15, 2017 20:26 - CONCLUSION: Bilateral bifurcation atherosclerotic disease. There is hemodynamically significant stenosis of the right internal carotid artery and occlusion of the left internal carotid artery. Clarence Good MD Objective Remarks Narrative GENERAL: Well-nourished, well-developed patient, elderly male, laying in bed with minimal shortness of breath SKIN: Warm and dry HEAD: Normocephalic and atraumatic. EYES: No injection or drainage. ENT: No nasal drainage noted. NECK: Supple, trachea midline. CARDIOVASCULAR: irregular rate and rhythm, systolic murmur present RESPIRATORY: On nasal cannula, good air entry bilaterally, scattered rhonchi and bibasilar crackles, no wheezing. GASTROINTESTINAL: Abdomen soft, nondistended. EXTREMITIES: 1+ pitting edema bilateral legs, mid tibia. NEUROLOGICAL: Awake. moves all extremities and sensory grossly within normal limits. Normal speech. A/P Assessment and Plan 72-year-old male with: Acute respiratory failure A. fib with RVR Non-ST elevation AK CHF Triple vessel CAD Moderate to severe aortic stenosis s/p CABG/ AVR (03/18) COPD HTN Hyperlipidemia Gout Plan: Neuro: Monitor neuro status. Avoid sedatives. Stroke workup negative. On antiplatelet therapy. Heparin held currently per CT surgery due to significant output from chest tubes as well as ?blood noted on CT chest in pericardial cavity. Neurology following. CV: Monitor HR and BP keep MAP>65mmHg s/p cardiac cath 03/15 showed 3VD, mod. , CTS consulted and patient underwent CABG and AVR 03/18 Cards is following- Dr. Meza. Continue beta sirena, amiodarone, antiplatelet therapy per CT surgery and cardiology. Off Cardizem and digoxin. May require diuresis. Pulm: Continue with oxygen keep sat >92% Bronchodilators GI/liver: Heart healthy diet Renal/:Monitor renal function, electrolytes replacement as needed. Resume diuretics when okay with CT surgery Heme:Monitor CBC Endocrine: SSI for glycemic control if needed. Prophylaxis: SCDs.Pepcid. D/W Dr. Marie, Dr. Herzog, CVICU nursing staff . Artemio Skinner MD Mar 19, 2017 17:48
[2017-03-19] MEDS: ALPRAZolam 0.5 MG TAB PO PRN (19:51)
[2017-03-19 20:04] LABS: BICARBONATE 26.4 MEQ/L (21.0-32.0); POTASSIUM 4.6 MEQ/L (3.5-5.1)
[2017-03-19] MEDS ORDERED: ATORVASTATIN 40 MG TAB PO SCH (21:00)
[2017-03-19] MEDS ORDERED: SENNOSIDES 8.6 MG TAB PO SCH (21:00)
[2017-03-19] MEDS: FUROSEMIDE 20 MG/2 ML VIAL IV PUSH SCH (21:15)
[2017-03-20] VITALS: BP 132/81; PULSE 134; RESP 18; TEMP 98.2; O2SAT 98
[2017-03-20] MEDS: INSULIN ASPART SUPPLEMENTAL SCALE SQ SCH (02:00)
[2017-03-20] MEDS: FUROSEMIDE 20 MG/2 ML VIAL IV PUSH SCH (02:50)
[2017-03-20 03:00] VITALS: BP 145/88; PULSE 130; PULSE 141; RESP 20; TEMP 97.5; O2SAT 97
[2017-03-20] MEDS: SODIUM CHLOR 0.9% 1000 ML INJ 1,000 ML IV SCH ×2 (03:30→04:30)
[2017-03-20 05:06] LABS: AUTOMATED NEUTROPHIL # 16.1 TH/MM3 (1.8-7.7); BASOPHIL % 0.1 % (0.0-2.0); HEMATOCRIT 23.3 % (39.0-51.0); LYMPHOCYTE # 0.7 TH/MM3 (1.0-4.8); MEAN CELL VOLUME 90.5 FL (80.0-100.0); MEAN CORPUSCULAR HEMOGLOBIN 29.9 PG (27.0-34.0); MEAN CORPUSCULAR HGB CONC 33.1 % (32.0-36.0); MONO % 9.2 % (0.0-8.0); NEUT % 86.7 % (16.0-70.0); PLATELET COUNT 92 TH/MM3 (150-450); RED BLOOD COUNT 2.58 MIL/MM3 (4.50-5.90); WHITE BLOOD COUNT 18.6 TH/MM3 (4.0-11.0)
[2017-03-20 05:09] LABS: BICARBONATE 25.3 MEQ/L (21.0-32.0); HEMO FLAGS AUTO DIFF; MAGNESIUM 2.3 MG/DL (1.5-2.5); POTASSIUM 4.4 MEQ/L (3.5-5.1)
[2017-03-20 05:14] LABS: APTT (PATIENT) 31.5 SEC (24.3-30.1)
[2017-03-20 05:24] LABS: DIGOXIN 0.9 NG/ML (0.8-2.0)
[2017-03-20] MEDS: PANTOPRAZOLE SOD 40 MG DELAYED RELEASE TAB PO SCH (05:53)
[2017-03-20] MEDS: ALPRAZolam 0.5 MG TAB PO PRN (05:54)
--- NOTE | 2017-03-20 06:33 | RADRPT ---
EXAM DATE/TIME: 03/20/2017 05:54 [facility] COMPARISON: CHEST SINGLE AP, March 19, 2017, 4:34. INDICATIONS : Evaluate for pnuemothorax MEDICAL HISTORY : Chronic obstructive pulmonary disease. Hypertension. Cerebrovascular Disease SURGICAL HISTORY : CABG. ENCOUNTER: Subsequent ACUITY: 3 days PAIN SCORE: 7/10 LOCATION: Bilateral chest FINDINGS: Cardiomegaly and basilar airspace disease noted. Left-sided chest tube is present. I do not see a pne umothorax. Right jugular line tip overlies the SVC/right atrial junction. Mediastinal tube is noted. Small effusions are suspected. CONCLUSION: No obvious pneumothorax. Jesse Kerns MD on March 20, 2017 at 6:31 Board Certified Radiologist. This report was verified electronically.
[2017-03-20 07:05] VITALS: BP 91/74; PULSE 139; RESP 24; TEMP 97.5
[2017-03-20 07:49] LABS: OVALOCYTES 1+ (NORMAL); PLATELET ESTIMATE SMEAR LOW (NORMAL); PLATELET MORPHOLOGY NORMAL (NORMAL); SCAN/DIFF AUTO DIFF CONFIRMED
[2017-03-20 07:52] LABS: AUTOMATED NEUTROPHIL # 17.3 TH/MM3 (1.8-7.7); HEMATOCRIT 25.5 % (39.0-51.0); HEMO FLAGS DIFF FINAL; LYMPH % 3.6 % (9.0-44.0); LYMPHOCYTE # 0.7 TH/MM3 (1.0-4.8); MEAN CORPUSCULAR HEMOGLOBIN 29.9 PG (27.0-34.0); MEAN CORPUSCULAR HGB CONC 32.8 % (32.0-36.0); MONO % 7.8 % (0.0-8.0); NEUT % 88.6 % (16.0-70.0); PLATELET COUNT 106 TH/MM3 (150-450); RED BLOOD COUNT 2.81 MIL/MM3 (4.50-5.90); RED CELL DISTRIBUTION WIDTH 16.9 % (11.6-17.2); WHITE BLOOD COUNT 19.5 TH/MM3 (4.0-11.0)
--- NOTE | 2017-03-20 08:00 | HHI.PR ---
Subjective Remarks no new spells rapid afib and sob now Objective Vital Signs Date Time Temp Pulse Resp B/P (MAP) Pulse Ox O2 Delivery O2 Flow Rate FiO2 03/20/17 03:00 97 Nasal Cannula 2.00 03/20/17 03:00 97.5 141 20 145/88 (107) 97 03/20/17 03:00 130 03/20/17 00:00 98.2 134 18 132/81 (98) 98 03/20/17 00:00 98 Nasal Cannula 5.00 03/19/17 23:00 120 03/19/17 21:57 128 132/69 03/19/17 21:00 98 Nasal Cannula 5.00 03/19/17 20:00 97.9 121 16 125/69 (87) 97 03/19/17 20:00 97 Nasal Cannula 5.00 03/19/17 19:00 97.9 120 16 141/80 (100) 96 03/19/17 15:00 98.2 106 18 147/74 (98) 98 03/19/17 15:00 106 03/19/17 15:00 97 Nasal Cannula 3.00 03/19/17 12:37 108 125/69 03/19/17 11:00 97.5 114 20 93/70 (78) 99 Arterial Line 03/19/17 11:00 114 03/19/17 11:00 97 Nasal Cannula 3.00 03/19/17 08:26 98 Nasal Cannula 3.00 I/O 03/19/17 03/19/17 03/19/17 03/20/17 03/20/17 03/20/17 07:00 15:00 23:00 07:00 15:00 23:00 Intake Total 1162 ml 154 ml 1420 ml 2613 ml Output Total 933 ml 555 ml 395 ml Balance 229 ml 154 ml 865 ml 2218 ml Intake Oral 720 ml 1070 ml 240 ml IV Total 442 ml 154 ml 350 ml 2373 ml Output Urine Total 400 ml 175 ml 135 ml Chest Tube Drainage Total 533 ml 380 ml 260 ml Bladder Scan Volume Amount 0 ml 30 ml # Bowel Movements 0 0 Result Diagram: 03/20/17 0735 03/20/17 0353 Objective Remarks awake alert moves all and follows command s nl speech Assessment and Plan Assessment and Plan imp cta left ica occ old r ica not stenosed left mca fills well via acom and pcom ct brain 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
[2017-03-20 08:16] LABS: ALKALINE PHOSPHATASE 65 U/L (45-117); ALT (GPT) 42 U/L (12-78); ANION GAP 12 MEQ/L (5-15); AST (GOT) 74 U/L (15-37); BLOOD UREA NITROGEN 66 MG/DL (7-18); CHLORIDE 98 MEQ/L (98-107); GLOMERULAR FILTRATION RATE 22 ML/MIN (>89); MAGNESIUM 2.4 MG/DL (1.5-2.5); POTASSIUM 4.7 MEQ/L (3.5-5.1); SODIUM (NA) 132 MEQ/L (136-145); TOTAL BILIRUBIN ADULT 0.8 MG/DL (0.2-1.0)
[2017-03-20 08:32] LABS: BLOOD GAS BASE EXCESS -5.5 mmol/L (-2-2); BLOOD GAS HCO3 18 mmol/L (22-26); BLOOD GAS O2 HGB SATURATION 96 % (90-100); BLOOD GAS OXYGEN CONTENT 11.6 Vol % (12.0-20.0); BLOOD GAS PCO2 27 mmHg (38-42); BLOOD GAS PO2 101 mmHg (61-120); BLOOD GAS TOTAL HGB 8.5 G/DL (12.0-16.0); TEMP CORR TO 98.6
[2017-03-20 08:33] LABS: CRITICAL VALUE NO; DRAW SITE RT RADIAL; LITER FLOW 5 L/M; NUMBER OF ARTERIAL PUNCTURES 1; OXYGEN DEVICE NASAL CANNULA; STAT YES; ULNAR PULSE PRESENT
[2017-03-20] MEDS ORDERED: SODIUM CHLORIDE 0.9% FLUSH 10 ML FLUSH IV FLUSH PRN (08:45)
[2017-03-20] MEDS ORDERED: RESP: IPRATROPIUM 0.5 MG/2.5 ML NEB NEB PRN (09:00)
[2017-03-20] MEDS ORDERED: POLYETHYLENE GLYCOL 17 GM PKG PO SCH (09:00)
--- NOTE | 2017-03-20 09:06 | HHI.CCPN ---
Subjective Remarks/Hospital Course 03/13: 72-year-old male with a medical history significant for atrial fibrillation, coronary artery disease, peripheral vascular disease who developed progressive shortness of breath about 1-1/2 hours prior to his arrival to the ER. He reportedly was visiting the area from [place]. EMS was called when he started having shortness of breath and was noted to have heart rate in the 180s. He was given 2 doses of Indocin and subsequently 20 mg Cardizem IV with which his heart rate temporarily came down however he was noted to be in A. fib with RVR on arrival in the ER. Patient was initiated on BiPAP for respiratory distress and hypoxia and was initiated on a Cardizem drip. Dr. Meza from cardiology was consulted by ER physician in view of pulmonary edema and slightly elevated troponin and A. fib with RVR. Patient was accepted for admission by critical care medicine service. I ordered Lopressor 5 mg IV stat as patient was on Cardizem 15 mg/h and still tachycardic with ventricular rate 120 to 130s. Following administration of Lopressor his heart rate came down to the 90s while on Cardizem drip. When I evaluated the patient in the ER he was on BiPAP with full facemask. He stated that since receiving the Lopressor he was feeling better however still very short of breath. He denied any chest pain. 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 He has previously had a cardiac catheterization way back in 2008 and was told he had an obstruction. He has also had a stress test in 2014 which was abnormal. Patient states that he cannot take blood thinners due to history of GI bleeding. He was advised to have a cardiac catheterization by his bread racker previously. He denies any fevers or chills. Denies any chest pain nausea or vomiting. Denies any melena or rectal bleeding currently. 03/14: Resting in bed comfortably. On nasal cannula. Remains on Cardizem drip for A. fib with RVR. Troponin trending down. 03/15: Resting comfortably on 2 L nasal cannula. Diuresing well. Off Cardizem drip however still in A. fib with runs of rapid rate. Remains on heparin drip. 03/16 Patient s/p cardiac cath yesterday showed 3VD, mod. . CTS consult for CABG and AVR. 03/17: Remains in A. fib with RVR. Resuming Cardizem drip following Cardizem 20 mg IV 2 doses for A. fib with RVR this morning. Loaded with digoxin 0.5 mg IV stat earlier and we'll continue oral digoxin starting tomorrow. Awaiting CABG/ AVR. 03/18: Patient seen this morning prior to surgery. At that time he was in A. fib with good rate control on Cardizem drip at 5 mg per hour. Minimal shortness of breath. Denied any chest pain at the time. 03/19: s/p 2 vessel CABG/ AVR on 03/18. Patient was seen earlier this morning he was sitting up in a chair appeared comfortable. Subsequently a stroke alert was called. Patient developed some chest pressure and momentarily lost consciousness for a few minutes with blank stare. I immediately reached patient's bedside. He was being evaluated by neurologist Dr. Herzog at that time as well. He was starting to regain consciousness at the time and knew he was in the hospital and was following commands appropriately with normal speech. He stated that he did have some chest pressure earlier before losing consciousness. He complained of minimal shortness of breath. He was moving all 4 extremities at the time. stat CTA Head : Complete occlusion of the left internal carotid artery as above. stat CTA neck: Complete occlusion left internal carotid artery again seen. 2. Mild atherosclerotic changes within the right internal carotid without significant stenosis/ pt has known complete occlusion of left ICA CT pulmonary angiogram : No PE noted. Small bilateral pleural effusions, left larger than right, with associated compressive atelectasis in both lower lobes, There is a small left pneumothorax but a left chest tube is present. Small high density pericardial effusion with mediastinal drain present. High density suggests that the effusion contains blood products. 03/20 Patient was given 2L NS boluses overnight for decrease UOP. On 5L oxygen with good liberty. In Afib with RVR patient was on Amio drip overnight d/c for borderline low BP. LActic acid 5.5 this morning and renal function worse with Cr : 2.82 from 2.59 Objective Vital Signs Date Time Temp Pulse Resp B/P (MAP) Pulse Ox O2 Delivery O2 Flow Rate FiO2 03/20/17 03:00 97 Nasal Cannula 2.00 03/20/17 03:00 97.5 141 20 145/88 (107) 03/18/17 16:00 40 Intake and Output 03/20/17 03/20/17 03/21/17 08:00 16:00 00:00 Intake Total 2613 ml Output Total 395 ml Balance 2218 ml Result Diagram: 03/20/17 0735 03/20/17 0735 Other Results Laboratory Tests Test 03/19/17 10:52 03/19/17 12:20 03/19/17 18:45 03/20/17 03:53 Blood Gas Puncture Site RT BRACHIAL Blood Gas Patient Temperature 98.6 Blood Gas HCO3 16 mmol/L Blood Gas Base Excess -8.7 mmol/L Blood Gas Oxygen Saturation 95 % Arterial Blood pH 7.35 Arterial Blood Partial Pressure CO2 29 mmHg Arterial Blood Partial Pressure O2 99 mmHg Arterial Blood Oxygen Content 14.0 Vol % Arterial Blood Carboxyhemoglobin 1.0 % Arterial Blood Methemoglobin 1.1 % Blood Gas Hemoglobin 10.4 G/DL Oxygen Delivery Device NASAL CANNULA Blood Gas Liter Flow 6 L/M Prothrombin Time 12.9 SEC Prothromb Time International Ratio 1.3 RATIO Activated Partial Thromboplast Time 31.8 SEC 31.5 SEC Blood Urea Nitrogen 61 MG/DL 67 MG/DL Creatinine 2.17 MG/DL 2.59 MG/DL Random Glucose 176 MG/DL 181 MG/DL Calcium Level 8.2 MG/DL 8.0 MG/DL Sodium Level 133 MEQ/L 133 MEQ/L Potassium Level 4.6 MEQ/L 4.4 MEQ/L Chloride Level 99 MEQ/L 98 MEQ/L Carbon Dioxide Level 26.4 MEQ/L 25.3 MEQ/L Anion Gap 8 MEQ/L 10 MEQ/L Estimat Glomerular Filtration Rate 30 ML/MIN 24 ML/MIN White Blood Count 18.6 TH/MM3 Red Blood Count 2.58 MIL/MM3 Hemoglobin 7.7 GM/DL Hematocrit 23.3 % Mean Corpuscular Volume 90.5 FL Mean Corpuscular Hemoglobin 29.9 PG Mean Corpuscular Hemoglobin Concent 33.1 % Red Cell Distribution Width 17.0 % Platelet Count 92 TH/MM3 Mean Platelet Volume 11.0 FL Neutrophils (%) (Auto) 86.7 % Lymphocytes (%) (Auto) 4.0 % Monocytes (%) (Auto) 9.2 % Eosinophils (%) (Auto) 0.0 % Basophils (%) (Auto) 0.1 % Neutrophils # (Auto) 16.1 TH/MM3 Lymphocytes # (Auto) 0.7 TH/MM3 Monocytes # (Auto) 1.7 TH/MM3 Eosinophils # (Auto) 0.0 TH/MM3 Basophils # (Auto) 0.0 TH/MM3 CBC Comment AUTO DIFF Differential Comment AUTO DIFF CONFIRMED Platelet Estimate LOW Platelet Morphology Comment NORMAL Ovalocytes 1+ Magnesium Level 2.3 MG/DL Digoxin Level 0.9 NG/ML Test 03/20/17 07:35 03/20/17 08:22 White Blood Count 19.5 TH/MM3 Red Blood Count 2.81 MIL/MM3 Hemoglobin 8.4 GM/DL Hematocrit 25.5 % Mean Corpuscular Volume 91.0 FL Mean Corpuscular Hemoglobin 29.9 PG Mean Corpuscular Hemoglobin Concent 32.8 % Red Cell Distribution Width 16.9 % Platelet Count 106 TH/MM3 Mean Platelet Volume 10.7 FL Neutrophils (%) (Auto) 88.6 % Lymphocytes (%) (Auto) 3.6 % Monocytes (%) (Auto) 7.8 % Eosinophils (%) (Auto) 0.0 % Basophils (%) (Auto) 0.0 % Neutrophils # (Auto) 17.3 TH/MM3 Lymphocytes # (Auto) 0.7 TH/MM3 Monocytes # (Auto) 1.5 TH/MM3 Eosinophils # (Auto) 0.0 TH/MM3 Basophils # (Auto) 0.0 TH/MM3 CBC Comment DIFF FINAL Differential Comment Blood Urea Nitrogen 66 MG/DL Creatinine 2.82 MG/DL Random Glucose 204 MG/DL Total Protein 4.8 GM/DL Albumin 2.3 GM/DL Calcium Level 8.0 MG/DL Phosphorus Level 5.7 MG/DL Magnesium Level 2.4 MG/DL Alkaline Phosphatase 65 U/L Aspartate Amino Transf (AST/SGOT) 74 U/L Alanine Aminotransferase (ALT/SGPT) 42 U/L Total Bilirubin 0.8 MG/DL Sodium Level 132 MEQ/L Potassium Level 4.7 MEQ/L Chloride Level 98 MEQ/L Carbon Dioxide Level 22.0 MEQ/L Anion Gap 12 MEQ/L Estimat Glomerular Filtration Rate 22 ML/MIN Lactic Acid Level 5.5 mmol/L Blood Gas Puncture Site RT RADIAL Blood Gas Patient Temperature 98.6 Blood Gas HCO3 18 mmol/L Blood Gas Base Excess -5.5 mmol/L Blood Gas Oxygen Saturation 96 % Arterial Blood pH 7.43 Arterial Blood Partial Pressure CO2 27 mmHg Arterial Blood Partial Pressure O2 101 mmHg Arterial Blood Oxygen Content 11.6 Vol % Arterial Blood Carboxyhemoglobin 1.0 % Arterial Blood Methemoglobin 1.0 % Blood Gas Hemoglobin 8.5 G/DL Oxygen Delivery Device NASAL CANNULA Blood Gas Liter Flow 5 L/M Imaging Last Impressions Chest X-Ray 03/20/17 0600 Signed Impressions: Service Date/Time: Monday, March 20, 2017 05:54 - CONCLUSION: No obvious pneumothorax. Jesse Kerns MD Neck CTA 03/19/17 1104 Signed Impressions: Service Date/Time: March 11:12 - CONCLUSION: 1. Complete occlusion left internal carotid artery again seen. 2. Mild atherosclerotic changes within the right internal carotid without significant stenosis Anup Osborne MD Head CTA 03/19/17 1104 Signed Impressions: Service Date/Time: March 11:12 - CONCLUSION: 1. Complete occlusion of the left internal carotid artery as above. Fabio Saunders MD Head CT 03/19/17 0000 Signed Impressions: Service Date/Time: March 11:14 - CONCLUSION: 1. No acute intracranial abnormality is identified. 2. Encephalomalacia involving a small area of the left frontal lobe at the high convexity. Clarence Bhakta MD CT Angiography 03/19/17 0000 Signed Impressions: Service Date/Time: March 11:25 - CONCLUSION: 1. No PE is identified. 2. Small bilateral pleural effusions, left larger than right, with associated compressive atelectasis in both lower lobes. 3. There is a small left pneumothorax but a left chest tube is present. 4. Small high density pericardial effusion with mediastinal drain present. High density suggests that the effusion contains blood products. 5. Stable nonacute findings include severe atherosclerotic disease, severe coronary calcification, descending thoracic aortic aneurysm, and moderate emphysema. Clarence Bhakta MD Lower Extremity Ultrasound 03/16/17 0000 Signed Impressions: Service Date/Time: Thursday, March 16, 2017 12:26 - CONCLUSION: 1. Venous mapping as above Fabio Saunders MD Chest CT 03/16/17 0000 Signed Impressions: Service Date/Time: Thursday, March 16, 2017 18:40 - CONCLUSION: 1. Cardiomegaly and extensive coronary artery calcifications. 2. Mild aneurysmal dilatation of the aortic arch measuring 3.8 cm in greatest dimension. 3. Small bilateral pleural effusions. 4. Bibasilar atelectatic changes. 5. Underlying scattered emphysematous changes bilaterally. 6. Degenerative changes and scoliosis of the thoracic spine. 7. Multiple hepatic cysts. 8. Tiny calcification within the expected region of the extrahepatic biliary system. It is difficult to determine if this represents an obstructing calculus or vascular calcification. Correlation with alkaline phosphatase, bilirubin and physical examination to rule out John's sign is suggested. Zac Aleman MD Carotid Artery Ultrasound 03/15/17 0000 Signed Impressions: Service Date/Time: Wednesday, March 15, 2017 20:26 - CONCLUSION: Bilateral bifurcation atherosclerotic disease. There is hemodynamically significant stenosis of the right internal carotid artery and occlusion of the left internal carotid artery. Clarence Good MD Objective Remarks Narrative GENERAL: Well-nourished, well-developed patient, elderly male, laying in bed with minimal shortness of breath SKIN: Warm and dry HEAD: Normocephalic and atraumatic. EYES: No injection or drainage. ENT: No nasal drainage noted. NECK: Supple, trachea midline. CARDIOVASCULAR: irregular rate and rhythm, systolic murmur present, tachycardic RESPIRATORY: On nasal cannula, good air entry bilaterally, scattered rhonchi and bibasilar crackles, no wheezing. GASTROINTESTINAL: distended , mild tenderness on palpation. EXTREMITIES: 1+ pitting edema bilateral legs, mid tibia. NEUROLOGICAL: Awake. moves all extremities and sensory grossly within normal limits. Normal speech. A/P Assessment and Plan 72-year-old male with: Acute respiratory failure A. fib with RVR Non-ST elevation ID CHF Triple vessel CAD Moderate to severe aortic stenosis s/p CABG/ AVR (03/18) lactic acidemia MALLORY Leukocytosis COPD HTN Hyperlipidemia Gout Plan: Neuro: Monitor neuro status. Avoid sedatives. Stroke workup negative. On antiplatelet therapy. Heparin held currently per CT surgery due to significant output from chest tubes as well as ?blood noted on CT chest in pericardial cavity. Neurology following. CV: Monitor HR and BP keep MAP>65mmHg s/p cardiac cath 03/15 showed 3VD, mod. , s/p CABG and AVR 03/[address] Marie Cards is following- Dr. Meza. Amio drip d/c place on Cardizem drip for rate control. On Lopressor 25mg BID, Amio 200mg PO BID, Digoxin 0.125mg daily ( Dig level 0.9). On ASA, Lipitor Check STAT echo r/o tamponade. Discussed with Dr. Montoya Given 2L NS overnight for decrease UOP. Monitor CT drainage. Serial lactic acid monitoring. Pulm: Continue with oxygen keep sat >92% Bronchodilators GI/liver: Keep NPO for now Check CT abd/pelvis r/o mesenteric ischemia Renal/:Monitor renal function, electrolytes replacement as needed. Avoid nephrotoxins Consult Renal service, diurese as needed. Heme:Monitor CBC, for transfusion 1 unit PRBC per CTS ID: Place on Zosyn give Vanco x 1 dose. check BC x 2 sets, UA with cx if needed. Monitor for signs of infections ( fever, WBC). Check CT abd/pelvis r/o mesenteric ischemia Endocrine: SSI for glycemic control Prophylaxis: SCDs.Pepcid. Discussed with Dr. Montoya and nursing staff. Addendum: Code blue was called in CT as patient was found unresponsive, asystole and Vfib arrest. ACLS protocol was initiated and patient was given Epi , bicarb, ca, shock and pericardiocentesis was performed by Dr. Lima Patient had brief return of spontaneous circulation after pericardiocentesis however he went back to asystole/Vfib arrest after 50mins ACLS code was called off. Dr. Montoya was present in room. Lactic acid 13.6 from 5.5, Hgb dropped 5.5 during code. CCT 30 mins . Maritza Healy MD Mar 20, 2017 09:06
--- NOTE | 2017-03-20 09:12 | ECHRPT ---
Indication: R/O TAMPONADE CONCLUSIONS Technically difficult echo as patient is recent post-op open heart surgery Patient is noted to be in Afib with RVR during the study The left ventricular systolic function is severely reduced with an estimated ejection fraction in th e range of 20-25%. There is diffuse global hypokinesis. The right ventricular systoilc function is mild to moderately reduced. Moderate mitral valve regurgitation. There is mild tricuspid valve regurgitation. There is a small to moderate pericardial effusion present. No hemodynamically significant echocardiographic features were observed (no pre-tamponade physiology). In limited views the right ventricle does not seem to collapse in diastole, although b ecause of recent surgery, unable to perform subcostal views. BP: 145 / 88 HR: 135 Rhythm: Atrial fibrillation MEASUREMENTS (Male / Female) Normal Values Technical Quality:Technically difficult study 2D ECHO LV Diastolic Diameter PLAX 4.9 cm 4.2 - 5.9 / 3.9 - 5.3 cm LV Systolic Diameter PLAX 4.3 cm IVS Diastolic Thickness 1.2 cm 0.6 - 1.0 / 0.6 - 0.9 cm LVPW Diastolic Thickness 0.7 cm 0.6 - 1.0 / 0.6 - 0.9 cm LV Relative Wall Thickness 0.4 LA Systolic Diameter LX 4.3 cm 3.0 - 4.0 / 2.7 - 3.8 cm DOPPLER AV Peak Velocity 161.3 cm/s AV Peak Gradient 10.4 mmHg LVOT Peak Velocity 119.4 cm/s LVOT Peak Gradient 5.7 mmHg MR Peak Velocity 483.0 cm/s MR Peak Gradient 93.3 mmHg TR Peak Velocity 263.0 cm/s TR Peak Gradient 27.7 mmHg FINDINGS LEFT VENTRICLE Normal left ventricular size. Wall thickness is normal. The left ventricular systolic function is severely reduced with an estimated ejection fraction in th e range of 20-25%. There is diffuse global hypokinesis. RIGHT VENTRICLE The right ventricle is visualized but not well, overall appears normal size. The right ventricular systoilc function is mild to moderately reduced. LEFT ATRIUM The left atrial size is mildly dilated. RIGHT ATRIUM The right atrial size is mildly dilated. ATRIAL SEPTUM Normal atrial septal thickness. AORTA The aortic root and proximal ascending aorta are normal in size on limited imaging. MITRAL VALVE Mitral annular calcification is present. Moderate mitral valve regurgitation. The mitral valve regurgitation jet is directed posteriorly. No mitral valve stenosis. AORTIC VALVE Mild thickening of the aortic valve leaflets. No aortic valve regurgitation. No aortic valve stenosis. TRICUSPID VALVE Structurally normal tricuspid valve. There is mild tricuspid valve regurgitation. No tricuspid valve stenosis. PULMONARY VALVE The pulmonary valve is not well visualized. VESSELS The inferior vena cava was not well visualized. PERICARDIUM There is a small to moderate pericardial effusion present. No hemodynamically significant echocardiographic features were observed (no pre-tamponade physiology). In limited views the right ventricle does not seem to collapse in diastole, although b ecause of recent surgery, unable to perform subcostal views. Sumit Maria DO (Electronically Signed) Final Date:20 March 2017 09:10
[2017-03-20 09:13] VITALS: O2SAT 97
--- NOTE | 2017-03-20 09:14 | RADRPT ---
EXAM DATE/TIME: 03/20/2017 08:40 [facility] COMPARISON: No previous studies available for comparison. INDICATIONS : Evaluate for ileus. MEDICAL HISTORY : Chronic obstructive pulmonary disease. Hypertension Cerebrovascular disease. SURGICAL HISTORY : CABG. ENCOUNTER: Subsequent ACUITY: 1 day PAIN SCORE: 6/10 LOCATION: Abdomen. FINDINGS: Moderate gaseous distention of the stomach with multiple loops of nondistended air-filled small bowel throughout the abdomen. Air and stool are noted in portions of the colon. No gross free air. Pleural -parenchymal disease is noted in the left lower lung zone. There is an aortic endoluminal stent graft in place. Osseous structures are intact. CONCLUSION: 1. Findings consistent with developing adynamic ileus. Patient has a moderately distended air-filled stomach and may benefit from NG tube decompression. Marlon Del Castillo MD on March 20, 2017 at 9:04 Board Certified Radiologist. This report was verified electronically.
[2017-03-20] MEDS ORDERED: FUROSEMIDE 20 MG/2 ML VIAL IV PUSH ONE (09:30)
[2017-03-20] MEDS ORDERED: DILTIAZEM INJ 125 MG in SODIUM CHLORIDE 0.9% INJ 100 ML IV PRN (09:30)
[2017-03-20 09:34] LABS: BACTERIA, URINE FEW /hpf; BLOOD, URINE MOD (NEG); COMMENT (UR) CATH-CULTURE IND; CULTURE IF INDICATED CATH CULTURE IND; GLUCOSE,URINE NEG (NEG); GRANULAR CAST, URINE 9 /lpf; KETONE, URINE NEG (NEG); NITRITE,URINE NEG (NEG); PH, URINE 5.5 (5.0-8.5); SQUAMOUS EPITHELIAL CELL URINE 1 /hpf (0-5); URINE COLOR YELLOW (YELLW/STRAW)
[2017-03-20] MEDS ORDERED: ATROPINE SULFATE 1 MG/10 ML SYRINGE ONE (09:35)
[2017-03-20] MEDS ORDERED: EPINEPHrine HCL (1:10,000) 1 MG/10 ML SYRINGE ONE (09:35)
[2017-03-20] MEDS ORDERED: RESP: IPRATROPIUM 0.5 MG/2.5 ML NEB NEB SCH ×2 (10:00→12:00)
[2017-03-20] MEDS ORDERED: PIPERACIL-TAZO 3.375 GM PREMIX 50 ML IV SCH (10:00)
[2017-03-20] MEDS ORDERED: ACETAMINOPHEN 1000 MG/100 ML 100 ML IV PRN (10:00)
[2017-03-20] MEDS ORDERED: VANCOMYCIN INJ 1,000 MG in SODIUM CHLOR 0.9% 250 ML INJ 250 ML IV ONE (10:00)
--- NOTE | 2017-03-20 10:28 | PD.CARD.PN ---
Subjective Subjective Remarks s/p cabg and AVR back in AFib with RVR Off heparin post op due blood loss INR 1.9 Elevated Lactid Acid Objective Medications Current Medications Medications (Trade) Dose Ordered Sig/[place] Route Start Time Stop Time Status Last Admin (Zyloprim) 300 mg DAILY PO 03/13/17 09:00 03/19/17 09:25 (Lanoxin) 0.125 mg DAILY PO 03/18/17 09:00 03/19/17 09:25 (NS Flush) 2 ml BID IV FLUSH 03/18/17 21:00 03/19/17 21:00 (NS Flush) 2 ml UNSCH PRN IV FLUSH 03/18/17 15:15 (Aspirin Chew) 81 mg DAILY PO 03/19/17 09:00 03/19/17 09:24 (Protonix) 40 mg DAILY@06 PO 03/19/17 06:00 03/20/17 05:53 (Cordarone) 200 mg Q12HR PO 03/18/17 21:00 03/19/17 21:00 (Tylenol) 650 mg Q4H PRN PO 03/18/17 16:30 (Zofran Inj) 4 mg Q6H PRN IV PUSH 03/18/17 16:00 (Apresoline Inj) 10 mg Q4H PRN IV PUSH 03/18/17 15:00 03/20/17 05:53 (Colace) 100 mg BID PO 03/19/17 09:00 03/19/17 12:03 (Theragran M Tab) 1 tab DAILY PO 03/19/17 09:00 (Milk Of Magnesia Liq) 30 ml DAILY PO 03/19/17 09:00 (Dulcolax Supp) 10 mg UNSCH PRN RECTAL 03/19/17 09:00 (Miralax) 17 gm DAILY PO 03/20/17 09:00 (Senokot) 8.6 mg HS PO 03/19/17 21:00 (Fleets Enema (Adult)) 118 ml UNSCH PRN RECTAL 03/19/17 09:00 (Lopressor) 25 mg BID PO 03/19/17 09:00 03/19/17 21:00 (NovoLOG SUPPLEMENTAL SCALE) 1 02,06,10,14,18,22 SQ 03/19/17 10:00 03/20/17 02:00 (D50w (Vial) Inj) 50 ml UNSCH PRN IV PUSH 03/19/17 09:00 (Glucagon Inj) 1 mg UNSCH PRN OTHER 03/19/17 09:00 (Lipitor) 40 mg HS PO 03/19/17 21:00 Amiodarone HCl 450 mg/Dextrose 250 ml @ 33.33 mls/ hr Q7H31M PRN IV 03/19/17 11:00 03/19/17 21:57 (Xanax) 0.5 mg Q6H PRN PO 03/19/17 19:15 03/20/17 05:54 (Lasix Inj) 20 mg Q6H IV PUSH 03/19/17 21:15 03/20/17 15:16 03/20/17 02:50 Diltiazem HCl 125 mg/Sodium Chloride 125 ml @ 5 mls/hr TITRATE PRN IV 03/20/17 09:30 (Atrovent Neb) 0.5 mg Q4HR NEB NEB 03/20/17 12:00 (Atrovent Neb) 0.5 mg Q2HR NEB PRN NEB 03/20/17 09:00 Piperacillin Sod/ Tazobactam Sod 50 ml @ 100 mls/hr Q8H IV 03/20/17 10:00 Vancomycin HCl 1000 mg/Sodium Chloride 250 ml @ 250 mls/hr ONCE ONCE IV 03/20/17 10:00 03/20/17 10:59 Acetaminophen 100 ml @ 400 mls/hr Q6H PRN IV 03/20/17 10:00 Vital Signs / I&O Vital Signs Date Time Temp Pulse Resp B/P (MAP) Pulse Ox O2 Delivery O2 Flow Rate FiO2 03/20/17 09:13 97 Nasal Cannula 5.00 03/20/17 07:05 139 03/20/17 07:05 Nasal Cannula 3.00 97 03/20/17 07:05 97.5 139 24 91/74 (80) 03/20/17 03:00 97 Nasal Cannula 2.00 03/20/17 03:00 97.5 141 20 145/88 (107) 97 03/20/17 03:00 130 03/20/17 00:00 98.2 134 18 132/81 (98) 98 03/20/17 00:00 98 Nasal Cannula 5.00 03/19/17 23:00 120 03/19/17 21:57 128 132/69 03/19/17 21:00 98 Nasal Cannula 5.00 03/19/17 20:00 97.9 121 16 125/69 (87) 97 03/19/17 20:00 97 Nasal Cannula 5.00 03/19/17 19:00 97.9 120 16 141/80 (100) 96 03/19/17 15:00 98.2 106 18 147/74 (98) 98 03/19/17 15:00 106 03/19/17 15:00 97 Nasal Cannula 3.00 03/19/17 12:37 108 125/69 03/19/17 11:00 97.5 114 20 93/70 (78) 99 Arterial Line 03/19/17 11:00 114 03/19/17 11:00 97 Nasal Cannula 3.00 I/O 03/19/17 03/19/17 03/19/17 03/20/17 03/20/17 03/20/17 07:00 15:00 23:00 07:00 15:00 23:00 Intake Total 1162 ml 154 ml 1420 ml 2613 ml Output Total 933 ml 555 ml 395 ml Balance 229 ml 154 ml 865 ml 2218 ml Intake Oral 720 ml 1070 ml 240 ml IV Total 442 ml 154 ml 350 ml 2373 ml Output Urine Total 400 ml 175 ml 135 ml Chest Tube Drainage Total 533 ml 380 ml 260 ml Bladder Scan Volume Amount 0 ml 30 ml # Bowel Movements 0 0 Physical Exam GENERAL: Well-nourished, well-developed patient. PALE SKIN: Warm and dry. HEAD: Normocephalic. EYES: No scleral icterus. No injection or drainage. NECK: Supple, trachea midline. No JVD or lymphadenopathy. CARDIOVASCULAR: Irr Irr no murmurs, gallops, or rubs. RESPIRATORY: Poor inspiratory effort GASTROINTESTINAL: Distended. no audible bowel sounds EXTREMITIES: No cyanosis, or edema. Laboratory Laboratory Tests Test 03/19/17 10:52 03/19/17 12:20 03/19/17 18:45 03/20/17 03:53 Blood Gas Puncture Site RT BRACHIAL Blood Gas Patient Temperature 98.6 Blood Gas HCO3 16 mmol/L Blood Gas Base Excess -8.7 mmol/L Blood Gas Oxygen Saturation 95 % Arterial Blood pH 7.35 Arterial Blood Partial Pressure CO2 29 mmHg Arterial Blood Partial Pressure O2 99 mmHg Arterial Blood Oxygen Content 14.0 Vol % Arterial Blood Carboxyhemoglobin 1.0 % Arterial Blood Methemoglobin 1.1 % Blood Gas Hemoglobin 10.4 G/DL Oxygen Delivery Device NASAL CANNULA Blood Gas Liter Flow 6 L/M Prothrombin Time 12.9 SEC Prothromb Time International Ratio 1.3 RATIO Activated Partial Thromboplast Time 31.8 SEC 31.5 SEC Blood Urea Nitrogen 61 MG/DL 67 MG/DL Creatinine 2.17 MG/DL 2.59 MG/DL Random Glucose 176 MG/DL 181 MG/DL Calcium Level 8.2 MG/DL 8.0 MG/DL Sodium Level 133 MEQ/L 133 MEQ/L Potassium Level 4.6 MEQ/L 4.4 MEQ/L Chloride Level 99 MEQ/L 98 MEQ/L Carbon Dioxide Level 26.4 MEQ/L 25.3 MEQ/L Anion Gap 8 MEQ/L 10 MEQ/L Estimat Glomerular Filtration Rate 30 ML/MIN 24 ML/MIN White Blood Count 18.6 TH/MM3 Red Blood Count 2.58 MIL/MM3 Hemoglobin 7.7 GM/DL Hematocrit 23.3 % Mean Corpuscular Volume 90.5 FL Mean Corpuscular Hemoglobin 29.9 PG Mean Corpuscular Hemoglobin Concent 33.1 % Red Cell Distribution Width 17.0 % Platelet Count 92 TH/MM3 Mean Platelet Volume 11.0 FL Neutrophils (%) (Auto) 86.7 % Lymphocytes (%) (Auto) 4.0 % Monocytes (%) (Auto) 9.2 % Eosinophils (%) (Auto) 0.0 % Basophils (%) (Auto) 0.1 % Neutrophils # (Auto) 16.1 TH/MM3 Lymphocytes # (Auto) 0.7 TH/MM3 Monocytes # (Auto) 1.7 TH/MM3 Eosinophils # (Auto) 0.0 TH/MM3 Basophils # (Auto) 0.0 TH/MM3 CBC Comment AUTO DIFF Differential Comment AUTO DIFF CONFIRMED Platelet Estimate LOW Platelet Morphology Comment NORMAL Ovalocytes 1+ Magnesium Level 2.3 MG/DL Digoxin Level 0.9 NG/ML Test 03/20/17 07:35 03/20/17 08:22 03/20/17 08:30 White Blood Count 19.5 TH/MM3 Red Blood Count 2.81 MIL/MM3 Hemoglobin 8.4 GM/DL Hematocrit 25.5 % Mean Corpuscular Volume 91.0 FL Mean Corpuscular Hemoglobin 29.9 PG Mean Corpuscular Hemoglobin Concent 32.8 % Red Cell Distribution Width 16.9 % Platelet Count 106 TH/MM3 Mean Platelet Volume 10.7 FL Neutrophils (%) (Auto) 88.6 % Lymphocytes (%) (Auto) 3.6 % Monocytes (%) (Auto) 7.8 % Eosinophils (%) (Auto) 0.0 % Basophils (%) (Auto) 0.0 % Neutrophils # (Auto) 17.3 TH/MM3 Lymphocytes # (Auto) 0.7 TH/MM3 Monocytes # (Auto) 1.5 TH/MM3 Eosinophils # (Auto) 0.0 TH/MM3 Basophils # (Auto) 0.0 TH/MM3 CBC Comment DIFF FINAL Differential Comment Blood Urea Nitrogen 66 MG/DL Creatinine 2.82 MG/DL Random Glucose 204 MG/DL Total Protein 4.8 GM/DL Albumin 2.3 GM/DL Calcium Level 8.0 MG/DL Phosphorus Level 5.7 MG/DL Magnesium Level 2.4 MG/DL Alkaline Phosphatase 65 U/L Aspartate Amino Transf (AST/SGOT) 74 U/L Alanine Aminotransferase (ALT/SGPT) 42 U/L Total Bilirubin 0.8 MG/DL Sodium Level 132 MEQ/L Potassium Level 4.7 MEQ/L Chloride Level 98 MEQ/L Carbon Dioxide Level 22.0 MEQ/L Anion Gap 12 MEQ/L Estimat Glomerular Filtration Rate 22 ML/MIN Lactic Acid Level 5.5 mmol/L Blood Gas Puncture Site RT RADIAL Blood Gas Patient Temperature 98.6 Blood Gas HCO3 18 mmol/L Blood Gas Base Excess -5.5 mmol/L Blood Gas Oxygen Saturation 96 % Arterial Blood pH 7.43 Arterial Blood Partial Pressure CO2 27 mmHg Arterial Blood Partial Pressure O2 101 mmHg Arterial Blood Oxygen Content 11.6 Vol % Arterial Blood Carboxyhemoglobin 1.0 % Arterial Blood Methemoglobin 1.0 % Blood Gas Hemoglobin 8.5 G/DL Oxygen Delivery Device NASAL CANNULA Blood Gas Liter Flow 5 L/M Urine Color YELLOW Urine Turbidity HAZY Urine pH 5.5 Urine Specific [place] 1.038 Urine Protein TRACE mg/dL Urine Glucose (UA) NEG mg/dL Urine Ketones NEG mg/dL Urine Occult Blood MOD Urine Nitrite NEG Urine Bilirubin NEG Urine Urobilinogen LESS THAN 2.0 MG/DL Urine Leukocyte Esterase TRACE Urine RBC 1 /hpf Urine WBC 7 /hpf Urine Squamous Epithelial Cells 1 /hpf Urine Amorphous Sediment RARE Urine Bacteria FEW /hpf Urine Granular Casts 9 /lpf Microscopic Urinalysis Comment CATH-CULTURE IND Imaging Last 24 hours Impressions Chest X-Ray 03/20/17 0600 Signed Impressions: Service Date/Time: Monday, March 20, 2017 05:54 - CONCLUSION: No obvious pneumothorax. Jesse Kerns MD Abdomen X-Ray 03/20/17 0000 Signed Impressions: Service Date/Time: Monday, March 20, 2017 08:40 - CONCLUSION: 1. Findings consistent with developing adynamic ileus. Patient has a moderately distended air-filled stomach and may benefit from NG tube decompression. Marlon Del Castillo MD Neck CTA 03/19/17 1104 Signed Impressions: Service Date/Time: , March 19, 2017 11:12 - CONCLUSION: 1. Complete occlusion left internal carotid artery again seen. 2. Mild atherosclerotic changes within the right internal carotid without significant stenosis Anup Osborne MD Head CTA 03/19/17 1104 Signed Impressions: Service Date/Time: , March 19, 2017 11:12 - CONCLUSION: 1. Complete occlusion of the left internal carotid artery as above. Fabio Saunders MD Assessment and Plan Problem List: (1) NSTEMI (non-ST elevated myocardial infarction) ICD Codes: I21.4 - Non-ST elevation (NSTEMI) myocardial infarction Plan: s/p CABG and AVR in the setting of severe 3 vessel CAD and moderate presenting as a NSTEMI. He remains afebrile and hemodynamically stable despite Afib wit RVR. Post op ECHO EF 20%, no pericardial effusion. Severe anemia this AM, chest tube in place and draining. Elevated Lactic Acid. Abd distention Ileus. Patient remains critically ill with worsening clinically. Regarding the Afib with RVR must likely is being driving by underlying ABD process or hypovolemia although he is maintaining adequate BP. He is extremely pale. Condition: Guarded Recommendations: 1. Transfuse 2 Units of PRBC's with Lasix in between. Serial H&H 2. Cont rate control for Afib. Afib likely secondary to underlying anemia 3. No OAC given concern of active bleeding 4. Avoid electrolytes abnormalities 5. Early ambulation and incentive spirometry Dr. Maria will be covering over the weekend (2) Pulmonary edema ICD Codes: J81.1 - Chronic pulmonary edema Status: Acute (3) S/P CABG (coronary artery bypass graft) ICD Codes: Z95.1 - Presence of aortocoronary bypass graft (4) S/P AVR (aortic valve replacement) ICD Codes: Z95.2 - Presence of prosthetic heart valve (5) Respiratory failure ICD Codes: J96.90 - Respiratory failure, unspecified, unspecified whether with hypoxia or hypercapnia Status: Acute (6) Atrial fibrillation with RVR ICD Codes: I48.91 - Unspecified atrial fibrillation Status: Acute (7) Systolic and diastolic CHF, acute on chronic ICD Codes: I50.43 - Acute on chronic combined systolic (congestive) and diastolic (congestive) heart failure (8) CAD (coronary artery disease) ICD Codes: I25.10 - Atherosclerotic heart disease of [place] coronary artery without angina pectoris Problem Qualifiers (1) Pulmonary edema: Qualified Codes: J81.0 - Acute pulmonary edema (2) Respiratory failure: Qualified Codes: J96.00 - Acute respiratory failure, unspecified whether with hypoxia or hypercapnia Deyvi Osullivan MD Mar 20, 2017 10:28
[2017-03-20 10:59] LABS: MEAN CELL VOLUME 95.1 FL (80.0-100.0); MEAN CORPUSCULAR HEMOGLOBIN 29.1 PG (27.0-34.0); MEAN CORPUSCULAR HGB CONC 30.6 % (32.0-36.0); PLATELET COUNT 75 TH/MM3 (150-450); RED BLOOD COUNT 1.88 MIL/MM3 (4.50-5.90); RED CELL DISTRIBUTION WIDTH 16.8 % (11.6-17.2); REVIEW FLAG FINAL; WHITE BLOOD COUNT 14.3 TH/MM3 (4.0-11.0)
[2017-03-20 11:04] LABS: INTERNATIONAL NORMALIZED RATIO 1.9 RATIO; PROTHROMBIN TIME - PATIENT 19.3 SEC (9.8-11.6)
[2017-03-20 11:08] LABS: HEMATOCRIT 17.8 % (39.0-51.0)
--- NOTE | 2017-03-20 11:12 | PD.PROCEDR ---
Procedure Note Procedure PROCEDURE: Emergency pericardiocentesis during cardiac arrest Diagnosis/Indication: Prolonged cardiac arrest, known pericardial effusion, presumed pericardial tamponade Procedure was done during Code Blue/cardiac arrest, patient is post CAG and known to have small hemorrhagic pericardial effusion. We were unable to use full sterile precautions due to ongoing CPR. The patients thorax was prepped. Subxiphoid approach was used and a 21 G 6 cm micro puncture needle was inserted to the left of xiphoid process at 30 degree angle to the skin, aimed towards the left shoulder. Negative pressure was applied and I was able to withdraw initially 20 CC dark thick blood, this was emptied out and did not appear to clot immediately. Additional 20 cc blood was removed with the syringe and patient regained a pulse and sinus rhythm and this was after total 40 CC dark blood was removed. I removed total 100 cc of viscous dark blood. Clinical picture consistent with and diagnostic of pericardial tamponade, as patient regained pulse only after pericardiocentesis. (After about 100 cc blood was removed Dr. Maria and Dr. Olea inserted drainage catheter to the pericardial space and needle was removed-see separate procedure note from them) . Blood loss for procedure excluding what was drained was minimal. As mentioned above patient had return of spontaneous circulation following pericardiocentesis. (See Full Code sheet and CPR note for details, eventually the code blue was called due prolonged CPR and possible irreversible brain damage) Beth Lima MD Mar 20, 2017 11:12
[2017-03-20 11:26] LABS: BICARBONATE 15.7 MEQ/L (21.0-32.0); CALCIUM-PROTEIN CORRECTED 9.7 MG/DL (8.5-10.1); MAGNESIUM 2.4 MG/DL (1.5-2.5); POTASSIUM 5.1 MEQ/L (3.5-5.1); TOTAL BILIRUBIN ADULT 0.6 MG/DL (0.2-1.0)
--- NOTE | 2017-03-20 11:43 | RADRPT ---
EXAM DATE/TIME: 03/20/2017 09:51 [facility] COMPARISON: CT PULMONARY ANGIOGRAM, March 19, 2017, 11:25. ABDOMEN KUB ONLY, March 20, 2017, 8:40. INDICATIONS : Distention, evaluate for ileus. ORAL CONTRAST: No oral contrast ingested. RADIATION DOSE: 10.53 CTDIvol (mGy) MEDICAL HISTORY : Aneurysm, abdominal. Chronic obstructive pulmonary disease. Hypertension. SURGICAL HISTORY : Abdominal aortic aneurysm repair. ENCOUNTER: Initial ACUITY: 1 day PAIN SCALE: Non-responsive LOCATION: upper quadrant TECHNIQUE: Volumetric scanning of the abdomen and pelvis was performed. Using automated exposure control and ad justment of the mA and/or kV according to patient size, radiation dose was kept as low as reasonably achievable to obtain optimal diagnostic quality images. DICOM format image data is available electro nically for review and comparison. FINDINGS: LOWER LUNGS: There are moderate-sized bilateral pleural effusions with associated compressive atelectasis. Small h emorrhagic pericardial effusion remains present. There has been prior aortic valve replacement. Media stinal drain and left chest tube remain present. There is air within the mediastinum. No pneumothorax is visualized. LIVER: Overall normal density with stable 8.9 cm cyst in the left lobe. There is also a 10 mm, 8 mm, and 6 m m right lobe low-density lesion that are stable but too small to characterize. There is no dilation of the biliary tree. There is high density material within the gallbladder likely representing dudley ous excretion of contrast material. SPLEEN: Normal size without lesion. PANCREAS: Within normal limits. KIDNEYS: Both kidneys demonstrate abnormal striated nephrogram appearance with areas of high density even that the patient did not receive intravenous contrast. There is no hydronephrosis. ADRENAL GLANDS: Within normal limits. VASCULAR: There is an abdominal aortic aneurysm that has been treated with an endoluminal stent graft which ext ends into the common iliac arteries bilaterally. There is severe atherosclerotic disease. Aneurysm sa c measures 5.7 cm. BOWEL/MESENTERY: Very distended stomach and abnormally distended proximal small bowel. Distal small bowel is decompres sed. Colon is mostly decompressed. No mass or obstructing process is identified. There is no free int raperitoneal air or fluid identified. ABDOMINAL WALL: Mild subcutaneous edema. RETROPERITONEUM: There is no lymphadenopathy. There is mild presacral edema. BLADDER: Decompressed with a Mclean catheter present. REPRODUCTIVE: Within normal limits. INGUINAL: There is no lymphadenopathy or hernia. There are postsurgical changes in the left inguinal region. MUSCULOSKELETAL: There are degenerative changes of the lumbar spine. No acute osseous abnormality is seen. CONCLUSION: 1. Very distended stomach and abnormal distention of the proximal small bowel with gas. Although the distal small bowel and colon are mostly decompressed I do not see a obstructing process. Findings cou ld be related to ileus. Given the severe gastric distention, patient may benefit from NG tube decompr ession. 2. Abnormal retention of contrast material within the kidneys from yesterday's CT scan. This indicate s acute tubular necrosis. 3. Otherwise, no acute findings, as above. Clarence Bhakta MD on March 20, 2017 at 11:32 Board Certified Radiologist. This report was verified electronically.
--- NOTE | 2017-03-20 12:12 | PD.CAR.PN ---
CVT Progress Note CVT: POD #: 2 Subjective/Hospital Course: 72/ male, visiting from [place] area had not been feeling well for about the past month. Has a longstanding history of atrial fibrillation and presented with atrial fibrillation rapid ventricular response. Heart rates in the 180s. He was given adenosine, subsequently IV Cardizem which seemed to improve his heart rate. He also had some respiratory distress, some hypoxemia and they placed BiPap. He denied chest pain. He has been worked up by Dr. Christian at [facility] and also seen a Dr. Bee for possible evaluation for EP study. They wanted to put him on blood thinners and cardioversion but he declined because he says he has had problems with blood thinners in the past. The patient's troponin came back at 1.0 and his BNP at 622. He underwent cardiac cath by Dr. Deyvi Meza which showed 100% occlusion in the mid segment of the RCA. The LAD had a proximal lesion of 90%, diffusely disease and the first diagonal was 100% occluded. The left circ had a 90% lesion in the distal segment and the obtuse marginal which was small was 100% occluded. He also had an echocardiogram which showed ejection fraction of 25-35%. Moderate mitral regurgitation, moderate to severe aortic stenosis. Trace tricuspid valve regurgitation. We were consulted to evaluate for coronary artery bypass grafting and aortic valve replacement. PAST MEDICAL HISTORY: Atrial fibrillation, Hyperlipidemia, COPD, Gastroesophageal reflux disease, Gout, Hypertension, Peripheral arterial disease, He has got abdominal stent apparently had some type of an aneurysm in his aorta, stents in the left femoral artery. 03/17 remains in afib rate now controlled, started on digoxin had mild pain earlier when HR was elevated for surgery in am 03/18 surgery : CABG x 2 DE JESUS to LAD - good SVG to PLB - good distal target EVH AVR with a 25 Intuity tissue valve ABEBE Resection left atrial appendage 03/19 pt was up in chair earlier, off all gtts A&O , chest tube drained 533/ 12 hrs bloody drainage pain controlled later in am , pt was again in chair had chest pain and then eyes seemed to be staring off rolled back a little bit and was put in the bed. He seemed to be unconscious for about 45 seconds or so according to the nurse. He was flaccid just staring straight ahead and then he came out of it. He was bagged briefly and seemed to bag okay and then woke up and was back to normal. HR dusty 65 , prior he was in NSR 80-90, was weaned off amiodarone gtt and started on po amiodarone, BB had not been given at that time He also complained of being SOB, stat CT Head completed , neuro consulted He, himself, remembers feeling like he was had having trouble breathing. stat CTA Head : Complete occlusion of the left internal carotid artery as above. stat CTA neck: Complete occlusion left internal carotid artery again seen. 2. Mild atherosclerotic changes within the right internal carotid without significant stenosis/ pt has known complete occlusion of left ICA CTA chest : No PE is identifie, Small bilateral pleural effusions, left larger than right, with associated compressive atelectasis in both lower lobes, There is a small left pneumothorax but a left chest tube is present. Small high density pericardial effusion with mediastinal drain present. High density suggests that the effusion contains blood products. EEG : no seizures chest tubes remain in place , pt quickly recovered with no neuro deficit he still has significant bloody drainage from chest tube to start Heparin 2/2 recent afib and lynda v score 3.0 will start pradaxa when chest tubes out repeat H&H this after > 10 HGB will keep in ICU [employer] and Neuro following 03/20/17 Patient developed recurrent AFIB with VR in the 140s as well as hypotension with BP systolic in the 90s. His renal function had also worsened overnight. He was evaluated by Dr. Healy and he was also noted to be acidotic with abdominal distension. An abdominal CT scan was ordered and the patient had cardiorespiratory collapse just following the CT scan. He did not survive this event despite CPR and ACLS measures to resuscitate him. I notified the patient' s and she expresses interest in a post-mortem examination. Objective: Vital Signs Date Time Temp Pulse Resp B/P (MAP) Pulse Ox O2 Delivery O2 Flow Rate FiO2 03/20/17 09:13 97 Nasal Cannula 5.00 03/20/17 07:05 139 03/20/17 07:05 Nasal Cannula 3.00 97 03/20/17 07:05 97.5 139 24 91/74 (80) 03/20/17 03:00 97 Nasal Cannula 2.00 03/20/17 03:00 97.5 141 20 145/88 (107) 97 03/20/17 03:00 130 03/20/17 00:00 98.2 134 18 132/81 (98) 98 03/20/17 00:00 98 Nasal Cannula 5.00 03/19/17 23:00 120 03/19/17 21:57 128 132/69 03/19/17 21:00 98 Nasal Cannula 5.00 03/19/17 20:00 97.9 121 16 125/69 (87) 97 03/19/17 20:00 97 Nasal Cannula 5.00 03/19/17 19:00 97.9 120 16 141/80 (100) 96 03/19/17 15:00 98.2 106 18 147/74 (98) 98 03/19/17 15:00 106 03/19/17 15:00 97 Nasal Cannula 3.00 03/19/17 12:37 108 125/69 Labs: Laboratory Tests Test 03/20/17 03:53 03/20/17 07:35 03/20/17 08:22 03/20/17 08:30 White Blood Count 18.6 TH/MM3 (4.0-11.0) 19.5 TH/MM3 (4.0-11.0) Red Blood Count 2.58 MIL/MM3 (4.50-5.90) 2.81 MIL/MM3 (4.50-5.90) Hemoglobin 7.7 GM/DL (13.0-17.0) 8.4 GM/DL (13.0-17.0) Hematocrit 23.3 % (39.0-51.0) 25.5 % (39.0-51.0) Mean Corpuscular Volume 90.5 FL (80.0-100.0) 91.0 FL (80.0-100.0) Mean Corpuscular Hemoglobin 29.9 PG (27.0-34.0) 29.9 PG (27.0-34.0) Mean Corpuscular Hemoglobin Concent 33.1 % (32.0-36.0) 32.8 % (32.0-36.0) Red Cell Distribution Width 17.0 % (11.6-17.2) 16.9 % (11.6-17.2) Platelet Count 92 TH/MM3 (150-450) 106 TH/MM3 (150-450) Mean Platelet Volume 11.0 FL (7.0-11.0) 10.7 FL (7.0-11.0) Neutrophils (%) (Auto) 86.7 % (16.0-70.0) 88.6 % (16.0-70.0) Lymphocytes (%) (Auto) 4.0 % (9.0-44.0) 3.6 % (9.0-44.0) Monocytes (%) (Auto) 9.2 % (0.0-8.0) 7.8 % (0.0-8.0) Eosinophils (%) (Auto) 0.0 % (0.0-4.0) 0.0 % (0.0-4.0) Basophils (%) (Auto) 0.1 % (0.0-2.0) 0.0 % (0.0-2.0) Neutrophils # (Auto) 16.1 TH/MM3 (1.8-7.7) 17.3 TH/MM3 (1.8-7.7) Lymphocytes # (Auto) 0.7 TH/MM3 (1.0-4.8) 0.7 TH/MM3 (1.0-4.8) Monocytes # (Auto) 1.7 TH/MM3 (0-0.9) 1.5 TH/MM3 (0-0.9) Eosinophils # (Auto) 0.0 TH/MM3 (0-0.4) 0.0 TH/MM3 (0-0.4) Basophils # (Auto) 0.0 TH/MM3 (0-0.2) 0.0 TH/MM3 (0-0.2) CBC Comment AUTO DIFF DIFF FINAL Differential Comment AUTO DIFF CONFIRMED Platelet Estimate LOW (NORMAL) Platelet Morphology Comment NORMAL (NORMAL) Ovalocytes 1+ (NORMAL) Activated Partial Thromboplast Time 31.5 SEC (24.3-30.1) Blood Urea Nitrogen 67 MG/DL (7-18) 66 MG/DL (7-18) Creatinine 2.59 MG/DL (0.60-1.30) 2.82 MG/DL (0.60-1.30) Random Glucose 181 MG/DL (74-106) 204 MG/DL (74-106) Calcium Level 8.0 MG/DL (8.5-10.1) 8.0 MG/DL (8.5-10.1) Magnesium Level 2.3 MG/DL (1.5-2.5) 2.4 MG/DL (1.5-2.5) Sodium Level 133 MEQ/L (136-145) 132 MEQ/L (136-145) Potassium Level 4.4 MEQ/L (3.5-5.1) 4.7 MEQ/L (3.5-5.1) Chloride Level 98 MEQ/L (98-107) 98 MEQ/L (98-107) Carbon Dioxide Level 25.3 MEQ/L (21.0-32.0) 22.0 MEQ/L (21.0-32.0) Anion Gap 10 MEQ/L (5-15) 12 MEQ/L (5-15) Estimat Glomerular Filtration Rate 24 ML/MIN (>89) 22 ML/MIN (>89) Digoxin Level 0.9 NG/ML (0.8-2.0) Total Protein 4.8 GM/DL (6.4-8.2) Albumin 2.3 GM/DL (3.4-5.0) Phosphorus Level 5.7 MG/DL (2.5-4.9) Alkaline Phosphatase 65 U/L (45-117) Aspartate Amino Transf (AST/SGOT) 74 U/L (15-37) Alanine Aminotransferase (ALT/SGPT) 42 U/L (12-78) Total Bilirubin 0.8 MG/DL (0.2-1.0) Lactic Acid Level 5.5 mmol/L (0.4-2.0) Blood Gas Puncture Site RT RADIAL Blood Gas Patient Temperature 98.6 Blood Gas HCO3 18 mmol/L (22-26) Blood Gas Base Excess -5.5 mmol/L (-2-2) Blood Gas Oxygen Saturation 96 % (90-100) Arterial Blood pH 7.43 (7.380-7.420) Arterial Blood Partial Pressure CO2 27 mmHg (38-42) Arterial Blood Partial Pressure O2 101 mmHg (61-120) Arterial Blood Oxygen Content 11.6 Vol % (12.0-20.0) Arterial Blood Carboxyhemoglobin 1.0 % (0-4) Arterial Blood Methemoglobin 1.0 % (0-2) Blood Gas Hemoglobin 8.5 G/DL (12.0-16.0) Oxygen Delivery Device NASAL CANNULA Blood Gas Liter Flow 5 L/M Urine Color YELLOW (YELLW/STRAW) Urine Turbidity HAZY (CLEAR) Urine pH 5.5 (5.0-8.5) Urine Specific [place] 1.038 (1.002-1.035) Urine Protein TRACE mg/dL (NEG-TRACE) Urine Glucose (UA) NEG mg/dL (NEG) Urine Ketones NEG mg/dL (NEG) Urine Occult Blood MOD (NEG) Urine Nitrite NEG (NEG) Urine Bilirubin NEG (NEG) Urine Urobilinogen LESS THAN 2.0 MG/DL (LESS Urine Leukocyte Esterase TRACE (NEG) Urine RBC 1 /hpf (0-3) Urine WBC 7 /hpf (0-5) Urine Squamous Epithelial Cells 1 /hpf (0-5) Urine Amorphous Sediment RARE Urine Bacteria FEW /hpf (NONE) Urine Granular Casts 9 /lpf (NONE) Microscopic Urinalysis Comment CATH-CULTURE IND Test 03/20/17 10:45 White Blood Count 14.3 TH/MM3 (4.0-11.0) Red Blood Count 1.88 MIL/MM3 (4.50-5.90) Hemoglobin 5.5 GM/DL (13.0-17.0) Hematocrit 17.8 % (39.0-51.0) Mean Corpuscular Volume 95.1 FL (80.0-100.0) Mean Corpuscular Hemoglobin 29.1 PG (27.0-34.0) Mean Corpuscular Hemoglobin Concent 30.6 % (32.0-36.0) Red Cell Distribution Width 16.8 % (11.6-17.2) Platelet Count 75 TH/MM3 (150-450) Mean Platelet Volume 10.3 FL (7.0-11.0) Prothrombin Time 19.3 SEC (9.8-11.6) Prothromb Time International Ratio 1.9 RATIO Blood Urea Nitrogen 63 MG/DL (7-18) Creatinine 2.75 MG/DL (0.60-1.30) Random Glucose 169 MG/DL (74-106) Total Protein 2.8 GM/DL (6.4-8.2) Albumin 1.2 GM/DL (3.4-5.0) Calcium Level 7.0 MG/DL (8.5-10.1) Phosphorus Level 7.9 MG/DL (2.5-4.9) Magnesium Level 2.4 MG/DL (1.5-2.5) Alkaline Phosphatase 53 U/L (45-117) Aspartate Amino Transf (AST/SGOT) 699 U/L (15-37) Alanine Aminotransferase (ALT/SGPT) 444 U/L (12-78) Total Bilirubin 0.6 MG/DL (0.2-1.0) Sodium Level 141 MEQ/L (136-145) Potassium Level 5.1 MEQ/L (3.5-5.1) Chloride Level 107 MEQ/L (98-107) Carbon Dioxide Level 15.7 MEQ/L (21.0-32.0) Anion Gap 18 MEQ/L (5-15) Estimat Glomerular Filtration Rate 23 ML/MIN (>89) Lactic Acid Level 13.6 mmol/L (0.4-2.0) Protein Corrected Calcium 9.7 MG/DL (8.5-10.1) Result Diagram: 03/20/17104403/20/171044 Plan: Patient despite extensive measures to resuscitate him. His has expressed interest in a post-mortem examination. (1) NSTEMI (non-ST elevated myocardial infarction) Plan: s/p CABG s/p AVR ECHO EF 20% Afib with RVR in the setting of Ileous and anemia Anemia Elevated Lactic Acid Ileus Recommendations: 1. Transfuse 2 Units of PRBC's with Lasix in between 2. Cont rate control for Afib. On AMIO, Cardizem and Digoxin. 3. Restart OAC when stable from surgical standpoint 4. Avoid electrolytes abnormalities 5. Early ambulation and incentive spirometry 6. Will need Life Vest upon d/c Dr. Maria will be covering over the weekend (2) Pulmonary edema (3) S/P CABG (coronary artery bypass graft) (4) S/P AVR (aortic valve replacement) (5) Respiratory failure (6) Atrial fibrillation with RVR (7) Systolic and diastolic CHF, acute on chronic (8) CAD (coronary artery disease) Problem Qualifiers (1) Pulmonary edema: Qualified Codes: J81.0 - Acute pulmonary edema (2) Respiratory failure: Qualified Codes: J96.00 - Acute respiratory failure, unspecified whether with hypoxia or hypercapnia Yoly Marie MD Mar 20, 2017 12:12
--- NOTE | 2017-03-20 14:15 | PD.CARD ---
Cardiology Procedure Note Procedure Name: Pericardial drain placement Procedure Date: Mar 20, 2017 Procedure Note: Wanda Denis called in CT. I arrived to help with CT surgery, Radiology and Critical Care. Discussion was made between multiple specialities that after multiple rounds of Epinephrine and CPR without spontaneous return of circulation , that even though the pericardial effusion appeared small to moderate without tamponade on echo as well as appearing small on CT scan, that pericardiocentesis should be done as a last chance effort. Dr. Lima performed the pericardiocentesis with removal of clot and blood, ~100cc. At this time, patient had return of spontaneous circulation off and on, and Epinephrine drip was started. We felt that we should place a pericardial drain at that time, so I placed a V14 wire through the needle. I then helped Dr. Olea with placing a pericardial drain. CPR was restarted, but unable to stabilize and keep a pulse. Please see Wanda Denis report for further information. Sumit Maria DO Mar 20, 2017 14:15
--- NOTE | 2017-03-20 14:30 | EKG ---
Date Performed: 03/20/2017 Time Performed: 07:50:22 PTAGE: 72 years EKG: Atrial fibrillation with rapid ventricular response. 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 PREVIOUS TRACING : 03/19/2017 05.12 DOCTOR: Kleber Joshua Interpretating Date/Time 03/20/2017 14:29:27
== END 2017-03-20 13:10 | disposition expired | DRG 216 ==
LOC: NEPE 05:06 → NEDA 06:11 → HIME 08:40 → HCPC 03-18 08:37 → HCVI 03-18 14:38
PROVIDERS: ADMIT Thoracic Surgery (Cardiothoracic Vascular Surgery); ATTEND Thoracic Surgery (Cardiothoracic Vascular Surgery)
PROC: 5A09357 Assistance with Respiratory Ventilation, Less than 24 Consecutive Hours, Continuous Positive Airway Pressure (ICD-10-PCS; 2017-03-13)
PROC: B2111ZZ Fluoroscopy of Multiple Coronary Arteries using Low Osmolar Contrast (ICD-10-PCS; 2017-03-15)
PROC: 4A023N7 Measurement of Cardiac Sampling and Pressure, Left Heart, Percutaneous Approach (ICD-10-PCS; 2017-03-15)
PROC: 5A1935Z Respiratory Ventilation, Less than 24 Consecutive Hours (ICD-10-PCS; 2017-03-18)
PROC: 021009W Bypass Coronary Artery, One Artery from Aorta with Autologous Venous Tissue, Open Approach (ICD-10-PCS; 2017-03-18)
PROC: 06BQ4ZZ Excision of Left Saphenous Vein, Percutaneous Endoscopic Approach (ICD-10-PCS; 2017-03-18)
PROC: 02570ZK Destruction of Left Atrial Appendage, Open Approach (ICD-10-PCS; 2017-03-18)
PROC: 5A1221Z Performance of Cardiac Output, Continuous (ICD-10-PCS; 2017-03-18)
PROC: 4A033BC Measurement of Arterial Pressure, Coronary, Percutaneous Approach (ICD-10-PCS; 2017-03-18)
PROC: B246ZZ4 Ultrasonography of Right and Left Heart, Transesophageal (ICD-10-PCS; 2017-03-18)
PROC: 02100Z9 Bypass Coronary Artery, One Artery from Left Internal Mammary, Open Approach (ICD-10-PCS; principal; 2017-03-18 08:10)
PROC: 02RF08Z Replacement of Aortic Valve with Zooplastic Tissue, Open Approach (ICD-10-PCS; 2017-03-18 08:10)
PROC: 5A12012 Performance of Cardiac Output, Single, Manual (ICD-10-PCS; 2017-03-20)
PROC: 0W9D3ZZ Drainage of Pericardial Cavity, Percutaneous Approach (ICD-10-PCS; 2017-03-20)
DX: I21.4 Non-ST elevation (NSTEMI) myocardial infarction (principal); J96.01 Acute respiratory failure with hypoxia; I50.43 Acute on chronic combined systolic (congestive) and diastolic (congestive) heart failure; R57.0 Cardiogenic shock; I08.3 Combined rheumatic disorders of mitral, aortic and tricuspid valves; E87.2 Acidosis; I31.3 Pericardial effusion (noninflammatory); J93.9 Pneumothorax, unspecified; J44.9 Chronic obstructive pulmonary disease, unspecified; I48.91 Unspecified atrial fibrillation; I45.10 Unspecified right bundle-branch block; I25.10 Atherosclerotic heart disease of native coronary artery without angina pectoris; I73.9 Peripheral vascular disease, unspecified; E78.5 Hyperlipidemia, unspecified; I11.0 Hypertensive heart disease with heart failure; K21.9 Gastro-esophageal reflux disease without esophagitis; M10.9 Gout, unspecified; Z87.891 Personal history of nicotine dependence; Z87.11 Personal history of peptic ulcer disease; I65.23 Occlusion and stenosis of bilateral carotid arteries; I46.9 Cardiac arrest, cause unspecified; D64.9 Anemia, unspecified
CPT/HCPCS: 31500; 36430; 36600; 70450; 70496; 70498; 71010; 71260; 71275; 74000; 74176; 76937; 80048; 80053; 80162; 80307; 81001; 82272; 82550; 82552; 82805; 82948; 83036; 83605; 83735; 83880; 84100; 84484; 85025; 85027; 85610; 85730; 86850; 86900; 86901; 86920; 87086; 87641; 88304; 88305; 88311; 92950; 93005; 93306; 93454; 93880; 93970; 93998; 94002; 94003; 94010; 94150; 94640; 94664; 94667; 94668; 95819; 96365; 99152; C1769; C1893; J0131; J0171; J0282; J0360; J0461; J0690; J1160; J1644; J1815; J1817; J1940; J2150; J2250; J2440; J2765; J2930; J3010; J3370; J3475; J3480; J7030; J7050; J7060; J7644; P9016; P9047; Q9967